=== PATIENT | male | born 1965 | race Caucasian/White ===

== ENCOUNTER 2018-01-22 15:21 | Emergency (ER) | payer SELFPAY ==
--- NOTE | 2018-01-22 16:29 | RAD REPORT ---
EXAM DESCRIPTION: RAD - Wrist Right 3 View - 01/22/2018 4:21 pm CLINICAL HISTORY: PAIN Pain COMPARISON: No comparisons FINDINGS: No fracture or dislocation seen. No foreign body or other soft tissue abnormality. IMPRESSION: Negative examination.
[2018-01-22 18:58] LABS: Absolute Lymphocytes (CBC) 1.7 K/uL (0.7-4.9); Absolute Monocytes 0.6 K/uL (0.1-1.3); Absolute Neutrophil 5.4 K/uL (1.8-8.0); Basophils % 0.5 % (0-1.3); Eosinophils % 2.7 % (0-4.4); Hematocrit 45.4 % (39.6-49.0); Lymphocytes % 21.4 % (15.3-44.8); MCH 27.8 pg (27.0-35.0); MCV 83.5 fL (80-100); MPV 8.7 fL (7.6-11.3); Monocytes % 7.1 % (3.3-12.3); RBC Red Blood Cell Count 5.44 M/uL (4.33-5.43)
[2018-01-22] MEDS ORDERED: CLINDAMYCIN 600MG/D5W 600 MG/50 ML BAG IV ONE (19:02)
[2018-01-22 19:39] LABS: BUN Blood Urea Nitrogen 13 mg/dL (7-18); Bicarbonate 27 mmol/L (21-32); Glucose Level 151 mg/dL (74-106); Potassium 3.8 mmol/L (3.5-5.1); Sodium Level 138 mmol/L (136-145)
[2018-01-22] MEDS ORDERED: LIDOCAINE 1% MPF 30 ML VIAL ONE (20:02)
--- NOTE | 2018-01-22 21:03 | EDPHYS ---
Physician Documentation [facility] Name: Matt Farrell Age: 53 yrs Sex: Male : 1965 Arrival Date: 01/22/2018 Time: 15:22 Bed 9 Private MD: ED Physician Louis Aj HPI: 01/22 21:07 This 53 yrs old Male presents to ER via Ambulatory with complaints of Boil, snw Wrist Pain. 21:07 Onset: The symptoms/episode began/occurred gradually. Associated signs and symptoms: snw Pertinent positives: pain with sitting. Modifying factors: The patient symptoms are alleviated by nothing, the patient symptoms are aggravated by touching area. The patient has experienced similar episodes in the past. The patient has not recently seen a physician. pt out of medications x 3 months for all his chronic illnesses. Historical: - Allergies: 15:51 No Known Allergies; ph - PMHx: 15:51 Arthritis; Bronchitis; Gout; heart disease; Hypertension; PTSD; Diabetes - NIDDM; ph - PSHx: 15:51 Hip Replacement Right; Heart stents; ph - Immunization history:: Adult Immunizations. - Social history:: Smoking status: unknown. - Ebola Screening: : No symptoms or risks identified at this time. ROS: 21:06 Constitutional: Negative for fever, chills, and weight loss, Eyes: Negative for injury, snw pain, redness, and discharge, ENT: Negative for injury, pain, and discharge, Neck: Negative for injury, pain, and swelling, Cardiovascular: Negative for chest pain, palpitations, and edema, Respiratory: Negative for shortness of breath, cough, wheezing, and pleuritic chest pain, Abdomen/GI: Negative for abdominal pain, nausea, vomiting, diarrhea, and constipation, Back: Negative for injury and pain, : Negative for injury, bleeding, discharge, and swelling, Skin: Negative for injury, rash, and discoloration, Neuro: Negative for headache, weakness, numbness, tingling, and seizure, Psych: Negative for depression, anxiety, suicide ideation, homicidal ideation, and hallucinations. 21:06 MS/extremity: Positive for pain, swelling, tenderness, of the right gluteal fold. Exam: 19:29 Constitutional: This is a well developed, well nourished patient who is awake, alert, snw and in no acute distress. Head/Face: Normocephalic, atraumatic. Eyes: Pupils equal round and reactive to light, extra-ocular motions intact. Lids and lashes normal. Conjunctiva and sclera are non-icteric and not injected. Cornea within normal limits. Periorbital areas with no swelling, redness, or edema. ENT: Nares patent. No nasal discharge, no septal abnormalities noted. Tympanic membranes are normal and external auditory canals are clear. Oropharynx with no redness, swelling, or masses, exudates, or evidence of obstruction, uvula midline. Mucous membranes moist. Neck: Trachea midline, no thyromegaly or masses palpated, and no cervical lymphadenopathy. Supple, full range of motion without nuchal rigidity, or vertebral point tenderness. No Meningismus. Chest/axilla: Normal chest wall appearance and motion. Nontender with no deformity. No lesions are appreciated. Cardiovascular: Regular rate and rhythm with a normal S1 and S2. No gallops, murmurs, or rubs. Normal PMI, no JVD. No pulse deficits. 19:29 Abdomen/GI: Soft, non-tender, with normal bowel sounds. No distension or tympany. No guarding or rebound. No evidence of tenderness throughout. Back: No spinal tenderness. No costovertebral tenderness. Full range of motion. MS/ Extremity: Pulses equal, no cyanosis. Neurovascular intact. Full, normal range of motion. Neuro: Awake and alert, GCS 15, oriented to person, place, time, and situation. Cranial nerves II-XII grossly intact. Motor strength 5/5 in all extremities. Sensory grossly intact. Cerebellar exam normal. Normal gait. Psych: Awake, alert, with orientation to person, place and time. Behavior, mood, and affect are within normal limits. 19:29 Respiratory: the patient does not display signs of respiratory distress, Respirations: no acute changes, Breath sounds: wheezing: expiratory is heard diffusely. 19:29 Skin: Appearance: Color: normal in color, lesion(s), noted, and can be described as erythematous, tender, indurated abscess at the left posterior thigh. Vital Signs: 15:51 BP 165 / 101; Pulse 91; Resp 18; Temp 98.1(O); Pulse Ox 95% on R/A; Weight 117.93 kg; ph Height 6 ft. 1 in. (185.42 cm); 16:34 BP 160 / 103; Pulse 83; Resp 18; Temp 97.4; Pulse Ox 95% on R/A; ph 18:51 BP 171 / 79; Pulse 64; Resp 18; Pulse Ox 96% on R/A; tl3 15:51 Body Mass Index 34.30 (117.93 kg, 185.42 cm) ph Procedures: 21:04 I \T\ D: Incision and drainage was performed for an abscess of the right posterior thigh snw Prepped with Betadine, Anesthetized with 4 ml's 1% Lidocaine. Incised with #10 blade. Drained large amount purulent fluid. Abscess cavity explored. Packed with sterile gauze, Dressing: sterile 4x4 gauze, the patient tolerated the procedure well. MDM: 17:23 Patient medically screened. snw 21:06 Data reviewed: vital signs, nurses notes. Data interpreted: Pulse oximetry: on room air snw is 96 %. Interpretation: acceptable. Counseling: I had a detailed discussion with the patient and/or guardian regarding: the historical points, exam findings, and any diagnostic results supporting the discharge/admit diagnosis, the presence of at least one elevated blood pressure reading (>120/80) during this emergency department visit, lab results, the need for outpatient follow up, to return to the emergency department if symptoms worsen or persist or if there are any questions or concerns that arise at home. Special discussion: I have referred the patient to see his PCP for further evaluation of high blood pressure. I discussed in detail with the patient the higher chance of wound infection based on his presenting history. Based on the history and exam findings, there is no indication for further emergent testing or inpatient evaluation. I discussed with the patient/guardian the need to see the primary care provider for further evaluation of the symptoms. 01/22 18:12 Order name: Basic Metabolic Panel; Complete Time: 19:45 snw 01/22 18:12 Order name: Blood Culture Adult (2) snw 01/22 18:12 Order name: CBC with Diff; Complete Time: 19:19 snw 01/22 18:12 Order name: Lactate; Complete Time: 19:45 snw 01/22 18:12 Order name: Procalcitonin; Complete Time: 19:45 snw 01/22 15:54 Order name: XRAY Wrist RIGHT 3 view; Complete Time: 17:23 ph 01/22 18:12 Order name: Accucheck; Complete Time: 18:51 snw 01/22 18:12 Order name: Cardiac monitoring; Complete Time: 18:51 snw 01/22 18:12 Order name: EKG - Nurse/Tech; Complete Time: 21:34 snw 01/22 18:12 Order name: IV Saline Lock - Large Bore; Complete Time: 18:50 snw 01/22 18:12 Order name: Labs collected and sent; Complete Time: 18:50 snw 01/22 18:12 Order name: O2 Per Protocol; Complete Time: 18:51 snw 01/22 18:12 Order name: O2 Sat Monitoring; Complete Time: 18:51 snw 01/22 19:46 Order name: I\T\D Setup; Complete Time: 19:51 snw 01/22 21:05 Order name: Dressing - Wound: Spandage; Complete Time: 21:09 snw 01/22 21:05 Order name: Rick wrap-joint; Complete Time: 21:33 snw Administered Medications: 18:59 Drug: Clindamycin 600 mg Route: IVPB; Infused Over: 30 mins; Site: right forearm; tl3 Delivery: Primary tubing; 19:30 Follow up: IV Status: Completed infusion; IV Intake: 50ml tl3 19:56 Drug: Lidocaine (1 %) 1 vials Volume: 20 ml; Route: Infiltration; tl3 21:33 Follow up: Response: Marked relief of symptoms tl3 21:33 Drug: Demerol 50 mg Route: IM; Site: left gluteus; tl3 21:33 Follow up: Response: Medication administered at discharge. tl3 Point of Care Testing: Blood Glucose: 18:51 Blood Glucose: 134 mg/dL; tl3 Ranges: Critical Glucose Levels:Adult <50 mg/dl or >400 mg/dl <40 mg/dl or >180 mg/dl Disposition: 01/22/18 21:02 Discharged to Home. Impression: Cutaneous abscess of right lower limb, Patient's intentional underdosing of medication regimen due to financial hardship. - Condition is Stable. - Discharge Instructions: Skin Abscess, Incision and Drainage, How to Take a Sitz Bath. - Prescriptions for Clindamycin HCl 300 mg Oral Capsule - take 1 capsule by ORAL route every 6 hours for 10 days; 40 capsule. Glucophage 500 mg Oral Tablet - take 1 tablet by ORAL route every 12 hours; 20 tablet. Tylenol- Codeine #3 300-30 mg Oral Tablet - take 2 tablets by ORAL route every 6 hours As needed; 14 tablet. - Medication Reconciliation Form, Thank You Letter, Antibiotic Education, Prescription Opioid Use form. - Follow up: Private Physician; When: 2 - 3 days; Reason: Recheck today's complaints, Continuance of care, Re-evaluation by your physician. Follow up: Emergency Department; When: As needed; Reason: Worsening of condition. Addendum: 01/29/2018 11:49 Co-signature as Attending Physician, Louis Aj MD. g s Signatures: Dispatcher [employer] EDMS Sharon Collado, ANGELICA-C PROJECTION ENGINEER-Csnw So Lofton, RN RN Louis Aj MD MD Chioma Nam RN RN tl3 Corrections: (The following items were deleted from the chart) 01/22 21:37 21:02 01/22/2018 21:02 Discharged to Home. Impression: Cutaneous abscess of right lower tl3 limb; Patient's intentional underdosing of medication regimen due to financial hardship. Condition is Stable. Forms are Medication Reconciliation Form, Thank You Letter, Antibiotic Education, Prescription Opioid Use. Follow up: Private Physician; When: 2 - 3 days; Reason: Recheck today's complaints, Continuance of care, Re-evaluation by your physician. Follow up: Emergency Department; When: As needed; Reason: Worsening of condition. snw
--- NOTE | 2018-01-22 21:03 | ER ---
Nurse's Notes [facility] Name: Matt Farrell Age: 53 yrs Sex: Male : 1965 Arrival Date: 01/22/2018 Time: 15:22 Bed 9 Private MD: Diagnosis: Cutaneous abscess of right lower limb;Patient's intentional underdosing of medication regimen due to financial hardship Presentation: 01/22 15:48 Presenting complaint: Patient states: " I have a boil on the back of my R leg and my R ph wrist has been hurting me because I fell a while back and I need to have it xrayed." Pt denies fever, N/V/D, or drainage from site. Transition of care: patient was not received from another setting of care. Onset of symptoms was January 22, 2018. Risk Assessment: Do you want to hurt yourself or someone else? Patient reports no desire to harm self or others. Care prior to arrival: None. 15:48 Method Of Arrival: Ambulatory ph 15:48 Acuity: CHELSIE 4 ph 15:52 Note Pt reports that he has been out of diabetes meds and HTN meds "for a few weeks". ph 21:36 Initial Sepsis Screen: Does the patient meet any 2 criteria? No. Patient's initial tl3 sepsis screen is negative. Does the patient have a suspected source of infection? Yes: Skin breakdown/wound. Triage Assessment: 21:36 General: Appears uncomfortable, Behavior is calm, cooperative, appropriate for age. tl3 Derm: Abscess located on right leg. Historical: - Allergies: 15:51 No Known Allergies; ph - PMHx: 15:51 Arthritis; Bronchitis; Gout; heart disease; Hypertension; PTSD; Diabetes - NIDDM; ph - PSHx: 15:51 Hip Replacement Right; Heart stents; ph - Immunization history:: Adult Immunizations. - Social history:: Smoking status: unknown. - Ebola Screening: : No symptoms or risks identified at this time. Screenin:51 Abuse screen: Denies threats or abuse. Nutritional screening: No deficits noted. tl3 Tuberculosis screening: No symptoms or risk factors identified. Fall Risk None identified. Assessment: 21:34 Pain: Complains of pain in right leg. tl3 Vital Signs: 15:51 BP 165 / 101; Pulse 91; Resp 18; Temp 98.1(O); Pulse Ox 95% on R/A; Weight 117.93 kg; ph Height 6 ft. 1 in. (185.42 cm); 16:34 BP 160 / 103; Pulse 83; Resp 18; Temp 97.4; Pulse Ox 95% on R/A; ph 18:51 BP 171 / 79; Pulse 64; Resp 18; Pulse Ox 96% on R/A; tl3 15:51 Body Mass Index 34.30 (117.93 kg, 185.42 cm) ph ED Course: 15:22 Patient arrived in ED. as 15:50 Triage completed. ph 15:52 Arm band placed on. ph 16:14 XRAY Wrist RIGHT 3 view In Process Unspecified. EDMS 17:22 Sharon Collado FNP-C [facility]. snw 17:22 Louis Aj MD is Attending Physician. snw 18:51 Patient has correct armband on for positive identification. tl3 18:51 No provider procedures requiring assistance completed. Inserted saline lock: 22 gauge tl3 in right forearm, using aseptic technique. Blood collected. 21:34 IV discontinued, intact, bleeding controlled, No redness/swelling at site. Pressure tl3 dressing applied. Administered Medications: 18:59 Drug: Clindamycin 600 mg Route: IVPB; Infused Over: 30 mins; Site: right forearm; tl3 Delivery: Primary tubing; 19:30 Follow up: IV Status: Completed infusion; IV Intake: 50ml tl3 19:56 Drug: Lidocaine (1 %) 1 vials Volume: 20 ml; Route: Infiltration; tl3 21:33 Follow up: Response: Marked relief of symptoms tl3 21:33 Drug: Demerol 50 mg Route: IM; Site: left gluteus; tl3 21:33 Follow up: Response: Medication administered at discharge. tl3 Point of Care Testing: Blood Glucose: 18:51 Blood Glucose: 134 mg/dL; tl3 Ranges: Intake: 19:30 IV: 50ml; Total: 50ml. tl3 Outcome: 21:02 Discharge ordered by . snw 21:34 Discharged to home ambulatory. tl3 21:34 Condition: stable 21:34 Discharge instructions given to patient, family, Instructed on discharge instructions, follow up and referral plans. medication usage, Demonstrated understanding of instructions, follow-up care, medications, Prescriptions given X 2. 21:37 Patient left the ED. tl3 Signatures: Dispatcher [employer] EDMS Sharon Collado, JAGC FR[employer] TECHNICIAN-Ektaw Emelyn Cruz as So Lofton, JOVANY RN Chioma Nam RN RN tl3 Corrections: (The following items were deleted from the chart) 15:52 15:51 BP 165 / 101; Pulse 91bpm; Resp 18bpm; Pulse Ox 95% RA; Temp 98.1F Oral; 117.93 ph kg; Height 3 ft. 61 in.; BMI: 19.4; ph
[2018-01-22] MEDS ORDERED: MEPERIDINE HCL 50 MG/ML AMP ONE (21:18)
== END 2018-01-22 21:37 | disposition home or self-care (01) ==
LOC: ER 15:21
PROC: 0J9L0ZZ Drainage of Right Upper Leg Subcutaneous Tissue and Fascia, Open Approach (ICD-10-PCS; principal; 2018-01-22)
DX: L02.415 Cutaneous abscess of right lower limb (principal); I10 Essential (primary) hypertension; E11.9 Type 2 diabetes mellitus without complications; M10.9 Gout, unspecified; I25.10 Atherosclerotic heart disease of native coronary artery without angina pectoris; Z96.641 Presence of right artificial hip joint; Z95.5 Presence of coronary angioplasty implant and graft
CPT/HCPCS: 36415; 80048; 82962; 83605; 84145; 85025; 87040; 96365; 96372; 99284; J2175

== ENCOUNTER 2018-01-24 14:37 | Emergency (ER) | payer SELFPAY ==
[2018-01-24] MEDS ORDERED: LIDOCAINE 1% MPF 30 ML VIAL ONE (14:59)
--- NOTE | 2018-01-24 15:32 | ER ---
Nurse's Notes [facility] Name: Matt Farrell Age: 53 yrs Sex: Male : 1965 Arrival Date: 01/24/2018 Time: 14:38 Bed 25 Private MD: None, None Diagnosis: Cutaneous abscess of right lower limb Presentation: 01/24 14:42 Presenting complaint: Patient states: needs wound repacked and checked to the right sv posterior leg, reports dressing fell off the day after coming here on 01/22/18. Also reports "I need another xray for my wrist because I think they missed something.". Transition of care: patient was not received from another setting of care. Onset of symptoms was January 22, 2018. Care prior to arrival: None. 14:42 Method Of Arrival: Ambulatory sv 14:42 Acuity: CHELSIE 4 sv 15:56 Risk Assessment: Do you want to hurt yourself or someone else? Patient reports no tl3 desire to harm self or others. Initial Sepsis Screen: Does the patient meet any 2 criteria? No. Patient's initial sepsis screen is negative. Does the patient have a suspected source of infection? Yes: Skin breakdown/wound. Triage Assessment: 14:42 General: Appears in no apparent distress. comfortable, Behavior is calm, cooperative, sv appropriate for age. Neuro: Level of Consciousness is awake, alert, obeys commands, Oriented to person, place, time, situation, Moves all extremities. Full function Gait is steady. Respiratory: Respiratory effort is even, unlabored, Respiratory pattern is regular, symmetrical. Historical: - Allergies: 14:49 No Known Allergies; sv - PMHx: 14:49 Arthritis; Bronchitis; Diabetes - NIDDM; Gout; heart disease; Hypertension; PTSD; sv - PSHx: 14:49 Hip Replacement Right; Heart stents; sv - Immunization history:: Adult Immunizations up to date. - Social history:: Smoking status: unknown. - Ebola Screening: : No symptoms or risks identified at this time. Screenin:03 Abuse screen: Denies threats or abuse. Nutritional screening: No deficits noted. tl3 Tuberculosis screening: No symptoms or risk factors identified. Fall Risk None identified. Assessment: 15:03 General: Appears uncomfortable, obese, Behavior is calm, cooperative, appropriate for tl3 age. Pain: Complains of pain in right leg. Neuro: Level of Consciousness is awake, alert, obeys commands. Cardiovascular: Patient's skin is warm and dry. Respiratory: Airway is patent Respiratory effort is even, unlabored, Respiratory pattern is regular, symmetrical. GI: No signs and/or symptoms were reported involving the gastrointestinal system. : No signs and/or symptoms were reported regarding the genitourinary system. EENT: No signs and/or symptoms were reported regarding the EENT system. Derm: Abscess located on right leg is quarter sized, has no drainage, is red. Musculoskeletal: No deficits noted. Vital Signs: 14:42 BP 171 / 108; Pulse 81; Resp 18; Temp 97.1; Pulse Ox 96% ; Weight 117.93 kg; Height 6 sv ft. 1 in. (185.42 cm); 14:42 Body Mass Index 34.30 (117.93 kg, 185.42 cm) sv ED Course: 14:38 Patient arrived in ED. mr 14:38 None, None is Private Physician. mr 14:42 Thuy Serrano FNP-C is [facility]. kb 14:42 Sherif Glynn MD is Attending Physician. kb 14:42 Arm band placed on Patient placed in an exam room, on a stretcher, on pulse oximetry. sv 14:48 Triage completed. sv 15:01 Chioma Nam, JOVANY is Primary Nurse. tl3 15:03 Patient has correct armband on for positive identification. tl3 15:03 No provider procedures requiring assistance completed. Patient did not have IV access tl3 during this emergency room visit. Administered Medications: 15:30 Drug: Lidocaine (1 %) 1 vials {Note: Per Daisy.} Volume: 5 ml; Route: Infiltration; tl3 Site: affected area; 15:40 Drug: Demerol 50 mg Route: IM; Site: right gluteus; tl3 15:54 Follow up: Response: Medication administered at discharge. tl3 Outcome: 15:31 Discharge ordered by . kb 15:55 Discharged to home ambulatory. tl3 15:55 Condition: stable 15:55 Discharge instructions given to patient, Instructed on discharge instructions, follow up and referral plans. stressed continuing abx as ordered, keeping area clean and dry, good handwashing 15:57 Patient left the ED. tl3 Signatures: Thuy Serrano FNP-C FNP-Ckb Verde, Stephanie, RN RN sv Blanco, Latoya mr Cyril, Chioma, RN RN tl3
--- NOTE | 2018-01-24 15:32 | EDPHYS ---
Physician Documentation [facility] Name: Matt Farrell Age: 53 yrs Sex: Male : 1965 Arrival Date: 01/24/2018 Time: 14:38 Bed 25 Private MD: None, None ED Physician Sherif Glynn HPI: 01/24 14:49 This 53 yrs old Male presents to ER via Ambulatory with complaints of Abscess kb Recheck. 14:49 Patient presents to ED for recheck of: abscess. The affected area is on the right kb hamstring. Previous treatment: The patient was initially treated 2 day(s) ago, the care was rendered at [facility], Treatment type: The patient's original treatment included an I\T\D. Progress: The patient reports no change in. The patient has not experienced similar symptoms in the past. The patient has not recently seen a physician. Pt reports he had an abscess drained on 01/22/18 to posterior right thigh. Reports the packing came out that same night and it closed back up. His girlfriend opened and drained it this morning, but he came to have it repacked. . Historical: - Allergies: 14:49 No Known Allergies; sv - PMHx: 14:49 Arthritis; Bronchitis; Diabetes - NIDDM; Gout; heart disease; Hypertension; PTSD; sv - PSHx: 14:49 Hip Replacement Right; Heart stents; sv - Immunization history:: Adult Immunizations up to date. - Social history:: Smoking status: unknown. - Ebola Screening: : No symptoms or risks identified at this time. ROS: 14:49 Constitutional: Negative for fever, chills, and weight loss, Cardiovascular: Negative kb for chest pain, palpitations, and edema, Respiratory: Negative for shortness of breath, cough, wheezing, and pleuritic chest pain, Abdomen/GI: Negative for abdominal pain, nausea, vomiting, diarrhea, and constipation, MS/Extremity: Negative for injury and deformity, Neuro: Negative for headache, weakness, numbness, tingling, and seizure. 14:49 Skin: Positive for abscess, erythema, swelling, of the right hamstring. Exam: 14:49 Constitutional: This is a well developed, well nourished patient who is awake, alert, kb and in no acute distress. Head/Face: Normocephalic, atraumatic. Neck: Trachea midline, no thyromegaly or masses palpated, and no cervical lymphadenopathy. Supple, full range of motion without nuchal rigidity, or vertebral point tenderness. No Meningismus. Chest/axilla: Normal chest wall appearance and motion. Nontender with no deformity. No lesions are appreciated. Cardiovascular: Regular rate and rhythm with a normal S1 and S2. No gallops, murmurs, or rubs. Normal PMI, no JVD. No pulse deficits. Respiratory: Lungs have equal breath sounds bilaterally, clear to auscultation and percussion. No rales, rhonchi or wheezes noted. No increased work of breathing, no retractions or nasal flaring. Abdomen/GI: Soft, non-tender, with normal bowel sounds. No distension or tympany. No guarding or rebound. No evidence of tenderness throughout. MS/ Extremity: Pulses equal, no cyanosis. Neurovascular intact. Full, normal range of motion. Neuro: Awake and alert, GCS 15, oriented to person, place, time, and situation. Cranial nerves II-XII grossly intact. Motor strength 5/5 in all extremities. Sensory grossly intact. Cerebellar exam normal. Normal gait. 14:49 Skin: abscess, that is moderate sized, of the right hamstring, with fluctuance, with induration. Vital Signs: 14:42 BP 171 / 108; Pulse 81; Resp 18; Temp 97.1; Pulse Ox 96% ; Weight 117.93 kg; Height 6 sv ft. 1 in. (185.42 cm); 14:42 Body Mass Index 34.30 (117.93 kg, 185.42 cm) sv Procedures: 15:29 I \T\ D: Incision and drainage was performed for an abscess of the right right hamstring kb Prepped with Betadine, Anesthetized with 2 ml's 1% Lidocaine. Incised with #11 blade. Drained moderate amount purulent fluid. Packed with iodoform gauze, Dressing: sterile 4x4 gauze, the patient tolerated the procedure well. MDM: 14:42 Patient medically screened. kb 14:49 Data reviewed: vital signs, nurses notes. Data interpreted: Pulse oximetry: on room air kb is 96 %. Interpretation: normal. Counseling: I had a detailed discussion with the patient and/or guardian regarding: the historical points, exam findings, and any diagnostic results supporting the discharge/admit diagnosis, the need for outpatient follow up, a family practitioner, a general surgeon, to return to the emergency department if symptoms worsen or persist or if there are any questions or concerns that arise at home. 01/24 14:55 Order name: I\T\D Setup; Complete Time: 15:06 kb Administered Medications: 15:30 Drug: Lidocaine (1 %) 1 vials {Note: Per Daisy.} Volume: 5 ml; Route: Infiltration; tl3 Site: affected area; 15:40 Drug: Demerol 50 mg Route: IM; Site: right gluteus; tl3 15:54 Follow up: Response: Medication administered at discharge. tl3 Disposition: 01/25 06:52 Co-signature as Attending Physician, Sherif Glynn MD I agree with the assessment and alla plan of care. Disposition: 01/24/18 15:31 Discharged to Home. Impression: Cutaneous abscess of right lower limb. - Condition is Stable. - Discharge Instructions: Skin Abscess, [id number], Incision and Drainage, Care After. - Medication Reconciliation Form, Thank You Letter, Antibiotic Education, Prescription Opioid Use form. - Follow up: Private Physician; When: 2 - 3 days; Reason: Recheck today's complaints, Continuance of care, Re-evaluation by your physician. Follow up: Emergency Department; When: As needed; Reason: Worsening of condition. - Notes: Continue previously prescribed antibiotics Signatures: Thuy Serrano, CIGARETTE AND FILTER CHIEF INSPECTOR-C CIGARETTE AND FILTER CHIEF INSPECTOR-Catalina Metcalf RN RN sv Anderson, Corey, MD MD cha Lowrey, Tammy, RN RN tl3 Corrections: (The following items were deleted from the chart) 01/24 14:54 14:49 Counseling: I had a detailed discussion with the patient and/or guardian semaj regarding: the historical points, exam findings, and any diagnostic results supporting the discharge/admit diagnosis, the need for outpatient follow up, a family practitioner, to return to the emergency department if symptoms worsen or persist or if there are any questions or concerns that arise at home, semaj 15:57 15:31 01/24/2018 15:31 Discharged to Home. Impression: Cutaneous abscess of right lower tl3 limb. Condition is Stable. Forms are Medication Reconciliation Form, Thank You Letter, Antibiotic Education, Prescription Opioid Use. Follow up: Private Physician; When: 2 - 3 days; Reason: Recheck today's complaints, Continuance of care, Re-evaluation by your physician. Follow up: Emergency Department; When: As needed; Reason: Worsening of condition. kb
[2018-01-24] MEDS ORDERED: MEPERIDINE HCL 50 MG/ML AMP ONE (15:51)
== END 2018-01-24 15:57 | disposition home or self-care (01) ==
LOC: ER 14:37
PROC: 0K9Q0ZZ Drainage of Right Upper Leg Muscle, Open Approach (ICD-10-PCS; principal; 2018-01-24)
DX: L02.415 Cutaneous abscess of right lower limb (principal)
CPT/HCPCS: 96372; 99283; J2175

== ENCOUNTER 2018-04-02 08:18 | Emergency (ER) | payer SELFPAY ==
--- OUTSIDE RECORDS SUMMARY | 2018-04-02 08:20 | XMS REPORT ---
:1965 [facility] Address [address] [place] [address] Dr. Oates [address] [place] [id number] Care Team Providers Name Role Phone Unavailable Unavailable Unavailable Problems This patient has no known problems. Allergies, Adverse Reactions, Alerts This patient has no known allergies or adverse reactions. Medications This patient has no known medications.
--- NOTE | 2018-04-02 09:13 | EDPHYS ---
Physician Documentation [facility] Name: Matt Farrell Age: 53 yrs Sex: Male : 1965 Arrival Date: 04/02/2018 Time: 08:23 Bed 26 Private MD: None, None ED Physician Milo Arellano HPI: 04/02 14:58 This 53 yrs old Male presents to ER via Ambulatory with complaints of snw Toothache. 14:56 The patient presents with broken tooth/teeth. The patient presents with broken snw tooth/teeth. The problem is located in the mouth. Onset: The symptoms/episode began/occurred suddenly, 2 day(s) ago, and became persistent. Duration: The symptoms are continuous. Associated signs and symptoms: Pertinent positives: pain. Severity of symptoms: At their worst the symptoms were moderate. It is unknown whether or not the patient has had similar symptoms in the past. The patient has not recently seen a physician. Historical: - Allergies: 08:38 No Known Allergies; aa5 - PMHx: 08:38 Arthritis; Bronchitis; Diabetes - NIDDM; Gout; heart disease; Hypertension; PTSD; aa5 - PSHx: 08:38 Hip Replacement Right; Heart stents; aa5 - Immunization history:: Adult Immunizations unknown. - Social history:: Smoking status: Patient uses tobacco products, smokes one pack cigarettes per day. - Ebola Screening: : No symptoms or risks identified at this time. ROS: 14:54 Constitutional: Negative for fever, chills, and weight loss, Eyes: Negative for injury, snw pain, redness, and discharge, Neck: Negative for injury, pain, and swelling, Cardiovascular: Negative for chest pain, palpitations, and edema, Respiratory: Negative for shortness of breath, cough, wheezing, and pleuritic chest pain, Abdomen/GI: Negative for abdominal pain, nausea, vomiting, diarrhea, and constipation, Back: Negative for injury and pain, : Negative for injury, bleeding, discharge, and swelling, MS/Extremity: Negative for injury and deformity, Skin: Negative for injury, rash, and discoloration, Neuro: Negative for headache, weakness, numbness, tingling, and seizure. 14:54 ENT: Positive for dental pain, high blood pressure as he has not gotten his meds filled in months 2nd to finances. Exam: 14:53 Constitutional: This is a well developed, well nourished patient who is awake, alert, snw and in no acute distress. Head/Face: Normocephalic, atraumatic. Eyes: Pupils equal round and reactive to light, extra-ocular motions intact. Lids and lashes normal. Conjunctiva and sclera are non-icteric and not injected. Cornea within normal limits. Periorbital areas with no swelling, redness, or edema. Neck: Trachea midline, no thyromegaly or masses palpated, and no cervical lymphadenopathy. Supple, full range of motion without nuchal rigidity, or vertebral point tenderness. No Meningismus. Chest/axilla: Normal chest wall appearance and motion. Nontender with no deformity. No lesions are appreciated. Cardiovascular: Regular rate and rhythm with a normal S1 and S2. No gallops, murmurs, or rubs. Normal PMI, no JVD. No pulse deficits. Respiratory: Lungs have equal breath sounds bilaterally, clear to auscultation and percussion. No rales, rhonchi or wheezes noted. No increased work of breathing, no retractions or nasal flaring. Abdomen/GI: Soft, non-tender, with normal bowel sounds. No distension or tympany. No guarding or rebound. No evidence of tenderness throughout. Back: No spinal tenderness. No costovertebral tenderness. Full range of motion. Skin: Warm, dry with normal turgor. Normal color with no rashes, no lesions, and no evidence of cellulitis. MS/ Extremity: Pulses equal, no cyanosis. Neurovascular intact. Full, normal range of motion. Neuro: Awake and alert, GCS 15, oriented to person, place, time, and situation. Cranial nerves II-XII grossly intact. Motor strength 5/5 in all extremities. Sensory grossly intact. Cerebellar exam normal. Normal gait. 14:53 ENT: External ear(s): are unremarkable, TM's: are normal, Nose: is normal, Mouth: is normal, Dental exam: dental caries, fractured teeth are noted, specifically the lower left second molar (#18). Vital Signs: 08:39 BP 182 / 94; Pulse 90; Resp 20 S; Temp 98.1(TE); Pulse Ox 96% on R/A; Weight 117.93 kg aa5 (R); Height 6 ft. 1 in. (185.42 cm) (R); Pain 10/10; 09:37 BP 189 / 109; Pulse 74; Pulse Ox 95% on R/A; Pain 10/10; ss 08:39 Body Mass Index 34.30 (117.93 kg, 185.42 cm) aa5 MDM: 09:09 Patient medically screened. snw 14:55 Data reviewed: vital signs, nurses notes. Data interpreted: Pulse oximetry: on room air snw is 95 %. Interpretation: acceptable. Counseling: I had a detailed discussion with the patient and/or guardian regarding: the historical points, exam findings, and any diagnostic results supporting the discharge/admit diagnosis, the presence of at least one elevated blood pressure reading (>120/80) during this emergency department visit, the need for outpatient follow up, to return to the emergency department if symptoms worsen or persist or if there are any questions or concerns that arise at home. Special discussion: I have referred the patient to see his PCP for further evaluation of high blood pressure. Based on the history and exam findings, there is no indication for further emergent testing or inpatient evaluation. I discussed with the patient/guardian the need to see a dentist for further evaluation of the symptoms. I discussed with the patient/guardian the need to see the primary care provider for further evaluation of the symptoms. Administered Medications: 09:53 Drug: Lisinopril 10 mg Route: PO; 09:53 Follow up: Response: No adverse reaction; Medication administered at discharge. 09:53 Drug: [place] 5 mg-325 mg 1 tabs Route: PO; 09:53 Follow up: Response: No adverse reaction; Medication administered at discharge. 09:54 Not Given (Other Intervention Used): Amoxicillin 875 mg PO once 09:54 Drug: Amoxicillin 500 mg Route: PO; 09:54 Follow up: Response: No adverse reaction; Medication administered at discharge. Disposition: 04/02/18 09:12 Discharged to Home. Impression: Dental caries, Essential (primary) hypertension, Patient's noncompliance with medical treatment and regimen - second to financial reasons. - Condition is Stable. - Discharge Instructions: Dental Caries, Adult, Dental Pain, Hypertension, DASH Eating Plan. - Prescriptions for chlorhexidine gluconate 0.12 % Mucous Membrane mouthwash - place 15 milliliter by MUCOUS MEMBRANE route 2 times per day after brushing teeth, swish in mouth for 30 seconds then spit out; 480 milliliter. Amoxicillin 500 mg Oral Capsule - take 1 capsule by ORAL route every 8 hours for 10 days; 30 tablet. Lisinopril 10 mg Oral Tablet - take 1 tablet by ORAL route once daily; 20 tablet. - Medication Reconciliation Form, Thank You Letter, Antibiotic Education, Prescription Opioid Use form. - Follow up: Private Physician; When: 1 - 2 days; Reason: Recheck today's complaints, Continuance of care, Re-evaluation by your physician. Follow up: Emergency Department; When: As needed; Reason: Worsening of condition. Addendum: 04/04/2018 07:35 Co-signature as Attending Physician, Milo Arellano MD. r n Signatures: Sharon Collado, CELL MAKER-C CELL MAKER-Csnw Milo Arellano MD MD rn Calderon, Audri, RN RN aa5 Jaqueline Nunez RN RN ss Corrections: (The following items were deleted from the chart) 04/02 09:55 09:12 04/02/2018 09:12 Discharged to Home. Impression: Dental caries; Essential ss (primary) hypertension; Patient's noncompliance with medical treatment and regimen - second to financial reasons. Condition is Stable. Forms are Medication Reconciliation Form, Thank You Letter, Antibiotic Education, Prescription Opioid Use. Follow up: Private Physician; When: 1 - 2 days; Reason: Recheck today's complaints, Continuance of care, Re-evaluation by your physician. Follow up: Emergency Department; When: As needed; Reason: Worsening of condition. snw
--- NOTE | 2018-04-02 09:13 | ER ---
Nurse's Notes [facility] Name: Matt Farrell Age: 53 yrs Sex: Male : 1965 Arrival Date: 04/02/2018 Time: 08:23 Bed 26 Private MD: None, None Diagnosis: Dental caries;Essential (primary) hypertension;Patient's noncompliance with medical treatment and regimen-second to financial reasons Presentation: 04/02 08:36 Presenting complaint: Patient states: "I've had a hole on a tooth on the left bottom aa5 side for years and it's been a while that it's been bothering me but it started hurting worse last night". Transition of care: patient was not received from another setting of care. Onset of symptoms was 2016. Risk Assessment: Do you want to hurt yourself or someone else? Patient reports no desire to harm self or others. Initial Sepsis Screen: Does the patient meet any 2 criteria? No. Patient's initial sepsis screen is negative. Does the patient have a suspected source of infection? No. Patient's initial sepsis screen is negative. Care prior to arrival: None. 08:36 Method Of Arrival: Ambulatory aa5 08:36 Acuity: CHELSIE 4 aa5 Historical: - Allergies: 08:38 No Known Allergies; aa5 - PMHx: 08:38 Arthritis; Bronchitis; Diabetes - NIDDM; Gout; heart disease; Hypertension; PTSD; aa5 - PSHx: 08:38 Hip Replacement Right; Heart stents; aa5 - Immunization history:: Adult Immunizations unknown. - Social history:: Smoking status: Patient uses tobacco products, smokes one pack cigarettes per day. - Ebola Screening: : No symptoms or risks identified at this time. Screenin:50 Abuse screen: Denies threats or abuse. Nutritional screening: No deficits noted. aa5 Tuberculosis screening: No symptoms or risk factors identified. Fall Risk None identified. Assessment: 08:45 General: Appears uncomfortable, Behavior is calm, cooperative. Pain: Complains of pain aa5 in left lower teeth Pain currently is 10 out of 10 on a pain scale. Quality of pain is described as throbbing, Is continuous. Neuro: Level of Consciousness is awake, alert, obeys commands, Oriented to person, place, time, situation. Cardiovascular: Patient's skin is warm and dry. Respiratory: Airway is patent Respiratory effort is even, unlabored, Respiratory pattern is regular, symmetrical. GI: No signs and/or symptoms were reported involving the gastrointestinal system. : No signs and/or symptoms were reported regarding the genitourinary system. EENT: Reports teeth pain . Derm: Skin is pink, warm \\T\\ dry. Musculoskeletal: Range of motion: intact in all extremities. Vital Signs: 08:39 BP 182 / 94; Pulse 90; Resp 20 S; Temp 98.1(TE); Pulse Ox 96% on R/A; Weight 117.93 kg aa5 (R); Height 6 ft. 1 in. (185.42 cm) (R); Pain 10/10; 09:37 BP 189 / 109; Pulse 74; Pulse Ox 95% on R/A; Pain 10/10; ss 08:39 Body Mass Index 34.30 (117.93 kg, 185.42 cm) aa5 ED Course: 08:23 Patient arrived in ED. dl4 08:23 None, None is Private Physician. dl4 08:24 [facility]C [facility] snw 08:24 Milo Arellano MD is Attending Physician. snw 08:38 Triage completed. aa5 08:38 Arm band placed on. aa5 08:38 Patient has correct armband on for positive identification. aa5 08:59 Antionette Prado, RN is Primary Nurse. aa5 09:55 No provider procedures requiring assistance completed. Patient did not have IV access ss during this emergency room visit. Administered Medications: 09:53 Drug: Lisinopril 10 mg Route: PO; ss 09:53 Follow up: Response: No adverse reaction; Medication administered at discharge. ss 09:53 Drug: [place] 5 mg-325 mg 1 tabs Route: PO; ss 09:53 Follow up: Response: No adverse reaction; Medication administered at discharge. ss 09:54 Not Given (Other Intervention Used): Amoxicillin 875 mg PO once ss 09:54 Drug: Amoxicillin 500 mg Route: PO; ss 09:54 Follow up: Response: No adverse reaction; Medication administered at discharge. ss Outcome: 09:12 Discharge ordered by . snw 09:55 Discharged to home via wheelchair, with family. ss 09:55 Condition: good 09:55 Discharge instructions given to patient, significant other, Instructed on discharge instructions, follow up and referral plans. medication usage, Demonstrated understanding of instructions, follow-up care, medications, Prescriptions given X 3. 09:55 Patient left the ED. Signatures: Sharon Collado, GRAPHIC SPECIALIST-C GRAPHIC SPECIALIST-Csnw Antionette Prado, RN RN aa5 Jaqueline Nunez RN RN ss Dorian Sheikh dl4 Corrections: (The following items were deleted from the chart) 09:53 09:53 Amoxicillin 875 mg PO [facility]
[2018-04-02] MEDS ORDERED: HYDROCODONE/APAP 5/325 MG TAB ONE (09:50)
[2018-04-02] MEDS ORDERED: LISINOPRIL 10 MG TAB ONE (09:50)
[2018-04-02] MEDS ORDERED: AMOXICILLIN TRIHYDR 250 MG CAP ONE (09:53)
== END 2018-04-02 09:55 | disposition home or self-care (01) ==
LOC: ER 08:18
DX: K02.9 Dental caries, unspecified (principal); I10 Essential (primary) hypertension; Z91.14 Patient's other noncompliance with medication regimen; Z91.19 Patient's noncompliance with other medical treatment and regimen; S02.5XXA Fracture of tooth (traumatic), initial encounter for closed fracture; X58.XXXA Exposure to other specified factors, initial encounter; F17.210 Nicotine dependence, cigarettes, uncomplicated
CPT/HCPCS: 99283

== ENCOUNTER 2021-09-26 19:05 | Emergency (ER) | payer OTHER ==
[2021-09-26 19:57] LABS: Absolute Lymphocytes (CBC) 1.5 K/uL (0.7-4.9); Hematocrit 45.9 % (39.6-49.0); Lymphocytes % 16.4 % (15.3-44.8); MCV 88.5 fL (80-100); MPV 8.5 fL (7.6-11.3); RBC Red Blood Cell Count 5.19 M/uL (4.33-5.43)
[2021-09-26 20:01] LABS: Protime INR 0.9
[2021-09-26] MEDS ORDERED: METOPROLOL TARTRATE 5 MG/5 ML INJ IV ONE ×2 (20:07→20:31)
[2021-09-26] MEDS ORDERED: NITROGLYCERIN 0.4 MG/TAB SL ONE (20:07)
[2021-09-26] MEDS ORDERED: FAMOTIDINE 20 MG/2 ML VIAL IV ONE (20:07)
--- NOTE | 2021-09-26 20:08 | RAD REPORT ---
EXAM DESCRIPTION: RAD - Chest Single View - 09/26/2021 7:49 pm CLINICAL HISTORY: CHEST PAIN COMPARISON: Two view chest 09/26/2011 TECHNIQUE: AP portable chest image was obtained 09/26/2021 7:49 pm . FINDINGS: Lungs are clear. Interstitial pattern is accentuated by slightly shallow inspiration gwen ble technique. This could mask minimal interstitial edema or infiltrate. Heart and vasculature are normal. No measurable pleural effusion and no pneumothorax. No acute bony a bnormality seen. No acute aortic findings suspected. IMPRESSION: No focal lung parenchymal process seen. Baseline interstitial pattern could mask minimal edema or infiltrate.
[2021-09-26 20:12] LABS: ALT/SGPT 39 U/L (12-78); AST/SGOT 22 U/L (15-37); Albumin 3.8 g/dL (3.4-5.0); Alkaline Phosphatase 66 U/L (45-117); BUN Blood Urea Nitrogen 21 mg/dL (7-18); Bicarbonate 25 mmol/L (21-32); Bilirubin Total 0.3 mg/dL (0.2-1.0); Glomerular Filtration Rate 101 ml/min (=/>90); Glucose Level 366 mg/dL (74-106); Magnesium 2.2 mg/dL (1.8-2.4); NT PRO-BNP 235 pg/mL (<125); Protein, Total 7.4 g/dL (6.4-8.2); Sodium Level 136 mmol/L (136-145)
[2021-09-26 20:14] LABS: Bilirubin Direct < 0.1 mg/dL (0-0.2)
[2021-09-26 20:15] LABS: Troponin High Sensitivity 64.9 pg/mL (<58.9)
--- NOTE | 2021-09-26 21:07 | ER ---
Nurse's Notes [facility] Name: Matt Farrell Age: 56 yrs Sex: Male : 1965 Arrival Date: 09/26/2021 Time: 19:12 Bed 2 Private MD: Diagnosis: Myocardial infarction - NSTEMI Presentation: 09/26 19:13 Chief complaint: EMS states: pt has hx of HTN, noncompliant with his meds for past sm5 year. pt's initial BP for ems was 239/120's. ems gave 324mg aspirin, 100mcg fentanyl, 20mg labetalol. Coronavirus screen: Vaccine status: Patient reports receiving the 2nd dose of the covid vaccine. Ebola Screen: No symptoms or risks identified at this time. Initial Sepsis Screen: Does the patient meet any 2 criteria? No. Patient's initial sepsis screen is negative. Does the patient have a suspected source of infection? No. Patient's initial sepsis screen is negative. Risk Assessment: Do you want to hurt yourself or someone else? Patient reports no desire to harm self or others. Onset of symptoms was September 26, 2021. 19:13 Method Of Arrival: EMS: [facility] 19:13 Acuity: CHELSIE 3 sm5 Triage Assessment: 19:20 General: Appears uncomfortable, Behavior is appropriate for age. Pain: Complains of sm5 pain in chest. Neuro: Level of Consciousness is awake, alert, obeys commands, Oriented to person, place, time, situation. Cardiovascular: Reports chest pain, Capillary refill < 3 seconds Patient's skin is warm and dry. Respiratory: Airway is patent Trachea midline Respiratory effort is even, unlabored. Historical: - Allergies: 19:18 PENICILLINS; sm5 - PMHx: 19:18 Arthritis; Bronchitis; Diabetes - NIDDM; Gout; heart disease; Hypertension; PTSD; sm5 Myocardial infarction; - PSHx: 19:18 Stented artery; sm5 - Immunization history:: Client reports receiving the 2nd dose of the Covid vaccine. - Social history:: Smoking status: Patient reports the use of cigarette tobacco products, smokes .75 packs per day. Screenin:20 Abuse screen: Denies threats or abuse. Denies injuries from another. Nutritional sm5 screening: No deficits noted. Tuberculosis screening: No symptoms or risk factors identified. Fall Risk None identified. Assessment: 19:30 Reassessment: see triage assessment. sm5 20:40 Reassessment: pt stating he does not need to be admitted and wants to go home. this RN 5 explained to pt about unstable vital signs, including high BP, lab results indicating heart damage and potential heart attack and the need for further treatment and workup. Pt stating he needs to get home to his girlfriend and that is his immediate concern and he does not want to stay. This RN continued to educate patient on importance of getting treatment and further workup. [facility] at bedside to also explain to pt about importance of staying and his lab results. Pt continuing to say he would like to leave. AMA form signed, informed pt to return back here immediately if chest pain or other symptoms worsen or continue. 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 Prescriptions given to pt and advised to fill medications as soon as possible.. Vital Signs: 19:13 BP 219 / 118; Pulse 86; Resp 14; Pulse Ox 96% on R/A; Weight 99.79 kg; Height 6 ft. 1 5 in. (185.42 cm); Pain 10/10; 20:21 BP 205 / 103; Pulse 67; Resp 10; Pulse Ox 97% on R/A; sm5 20:59 BP 179 / 93; Pulse 69; Resp 18; Pulse Ox 97% on R/A; sm5 21:19 BP 195 / 94; Pulse 69; Resp 17; Pulse Ox 97% on R/A; sm5 19:13 Body Mass Index 29.03 (99.79 kg, 185.42 cm) [facility] ED Course: 19:12 Patient arrived in ED. as6 19:12 Dante Bustamante, JOVANY is Primary Nurse. as6 19:16 Antwan Jones NP is PHCP. pm1 19:18 Triage completed. 5 19:20 Arm band placed on right wrist. EKG completed in triage. Results shown to . 5 19:21 Sherif Glynn MD is Attending Physician. [facility] 19:21 Patient has correct armband on for positive identification. Bed in low position. Call [facility] light in reach. Side rails up X2. Client placed on continuous cardiac and pulse oximetry monitoring. NIBP monitoring applied. 19:51 XRAY Chest (1 view) In Process Unspecified. EDMS 20:08 Maintain EMS IV. Dressing intact. Site clean \T\ dry. Gauge \T\ site: 20G L hand. sm 5 21:29 No provider procedures requiring assistance completed. IV discontinued, intact, sm5 bleeding controlled, No redness/swelling at site. Pressure dressing applied. Administered Medications: 20:08 Drug: Nitroglycerin 0.4 mg Route: Sublingual; sm5 20:08 Drug: Pepcid (famotidine) 20 mg Route: IVP; Site: left hand; sm5 21:25 Follow up: Response: No adverse reaction sm5 20:08 Drug: Metoprolol 5 mg Route: IVP; Site: left hand; sm5 21:25 Follow up: Response: No adverse reaction sm5 20:20 Drug: Nitroglycerin 0.4 mg Route: Sublingual; sm5 21:27 Follow up: Response: No adverse reaction sm5 20:39 Drug: Metoprolol 5 mg Route: IVP; Site: left hand; sm5 21:24 Follow up: Response: No adverse reaction sm5 21:09 Drug: morphine 4 mg Route: IVP; Infused Over: 4 mins; Site: left hand; sm5 21:24 Follow up: Response: No adverse reaction sm5 21:09 Drug: Insulin Regular Human 10 units {Co-Signature: as6 (Dante Bustamante RN).} Route: sm5 Sub-Q; Site: abdomen; 21:24 Follow up: Response: No adverse reaction sm5 Medication: 19:20 VIS not applicable for this client. sm5 Outcome: 21:28 Patient left the ED. sm5 21:30 critical sm5 21:30 Instructed on need to come back if symptoms continue or worsen Signatures: Dispatcher [employer] EDMS Sherif Glynn MD MD cha Marinas, Patrick, NP PLANT TECHNICAL SPECIALIST pm1 Dante Bustamante RN RN as6 Carmel Teran RN RN sm5 Dante Bustamante RN as6
--- NOTE | 2021-09-26 21:07 | EDPHYS ---
Physician Documentation [facility] Name: Matt Farrell Age: 56 yrs Sex: Male : 1965 Arrival Date: 09/26/2021 Time: 19:12 Bed 2 Private MD: ED Physician Sherif Glynn HPI: 09/26 19:28 This 56 yrs old Male presents to ER via EMS with complaints of Chest pain. pm1 19:28 The patient or guardian reports chest pain that is located primarily in the mid-sternal pm1 area. Onset: 2 hour(s) ago. The pain does not radiate. Associated signs and symptoms: Pertinent positives: diaphoresis, nausea, Pertinent negatives: abdominal pain, headache, shortness of breath, vomiting. The chest pain is described as a pressure. Duration: The patient or guardian reports a single episode, that is still ongoing. Severity of pain: in the emergency department the pain has improved With fentanyl given by EMS. EMS care prior to arrival includes: aspirin, Fentanyl. The patient has experienced a previous episode, many years ago, and the symptoms today are exactly the same, To his OK in 2003 that required a single stent. The patient has not recently seen a physician, Patient has not seen a physician in over a year and has decided to stop taking his medications for his diabetes and high blood pressure. Historical: - Allergies: 19:18 PENICILLINS; sm5 - PMHx: 19:18 Arthritis; Bronchitis; Diabetes - NIDDM; Gout; heart disease; Hypertension; PTSD; sm5 Myocardial infarction; - PSHx: 19:18 Stented artery; sm5 - Immunization history:: Client reports receiving the 2nd dose of the Covid vaccine. - Social history:: Smoking status: Patient reports the use of cigarette tobacco products, smokes .75 packs per day. ROS: 19:28 Constitutional: Negative for fever, chills, and weight loss. pm1 19:28 Respiratory: Negative for shortness of breath, cough, wheezing, and pleuritic chest pain. 19:28 Back: Negative for injury and pain, MS/Extremity: Negative for injury and deformity, Skin: Negative for injury, rash, and discoloration, Neuro: Negative for headache, weakness, numbness, tingling, and seizure. 19:28 Cardiovascular: Positive for chest pain, Negative for edema, palpitations. 19:28 Abdomen/GI: Positive for nausea, Negative for abdominal pain, vomiting, diarrhea. 19:28 All other systems are negative. Exam: 19:28 Constitutional: This is a well developed, well nourished patient who is awake, alert, pm1 and in no acute distress. Head/Face: Normocephalic, atraumatic. 19:28 Back: No spinal tenderness. No costovertebral tenderness. Full range of motion. Skin: Warm, dry with normal turgor. Normal color with no rashes, no lesions, and no evidence of cellulitis. MS/ Extremity: Pulses equal, no cyanosis. Neurovascular intact. Full, normal range of motion. 19:28 Cardiovascular: Exam negative for acute changes, Rate: normal, Rhythm: regular, Pulses: no pulse deficits are appreciated, Heart sounds: normal, normal S1and S2. 19:28 Respiratory: Exam negative for acute changes, respiratory distress, shortness of breath, Breath sounds: are clear throughout. 19:28 Abdomen/GI: Exam negative for acute changes, Inspection: abdomen appears normal, Palpation: abdomen is soft and non-tender, in all quadrants. 19:28 Neuro: Exam negative for acute changes, Orientation: is normal, Mentation: is normal, Motor: is normal, moves all fours. Vital Signs: 19:13 BP 219 / 118; Pulse 86; Resp 14; Pulse Ox 96% on R/A; Weight 99.79 kg; Height 6 ft. 1 sm5 in. (185.42 cm); Pain 10/10; 20:21 BP 205 / 103; Pulse 67; Resp 10; Pulse Ox 97% on R/A; 5 20:59 BP 179 / 93; Pulse 69; Resp 18; Pulse Ox 97% on R/A; sm5 21:19 BP 195 / 94; Pulse 69; Resp 17; Pulse Ox 97% on R/A; sm5 19:13 Body Mass Index 29.03 (99.79 kg, 185.42 cm) [facility] MDM: 19:21 Patient medically screened. [facility] 19:29 Data reviewed: vital signs. Data interpreted: Pulse oximetry: on room air is 97 %. pm1 Interpretation: normal. 21:00 Refusal of service: The patient/guardian displays adequate decision making capability pm1 and despite a detailed discussion of alternatives, benefits, risks, and consequences refuses: Admission to the hospital for further work-up and treatment, Patient refuses to be admitted to the hospital. Patient reports he is concerned about his wheelchair bound girlfriend and his dogs because no one is available to take care of them if he is not home. I informed the patient that he has a heart attack and if he goes home he will . Patient still wants to go home after I informed him of the gravity of his diagnosis. He requested a prescription for blood pressure medicine and nitro to go home with. Patient has not taken any medications for over 1 year for his hypertension and diabetes. Informed patient that he can return to the ER at any time for admission. 09/26 19:28 Order name: Basic Metabolic Panel; Complete Time: 20:18 pm09/26 19:28 Order name: CBC with Diff; Complete Time: 20:18 pm09/26 19:28 Order name: LFT's; Complete Time: 20:18 pm09/26 19:28 Order name: Magnesium; Complete Time: 20:18 pm09/26 19:28 Order name: NT PRO-BNP; Complete Time: 20:18 pm09/26 19:28 Order name: PT-INR; Complete Time: 20:18 pm09/26 19:28 Order name: Troponin HS; Complete Time: 20:18 pm09/26 19:28 Order name: XRAY Chest (1 view); Complete Time: 20:18 pm09/26 19:35 Order name: COVID-19 SARS RT PCR (Document "Date of Onset" if Symptomatic); Complete pm1 Time: 21:09/26 21:09 Order name: Glucose, Ancillary Testing; Complete Time: 21:22 EDMS 09/26 19:28 Order name: EKG; Complete Time: 19:29 pm09/26 19:28 Order name: Cardiac monitoring; Complete Time: 19:45 pm09/26 19:28 Order name: EKG - Nurse/Tech; Complete Time: 19:45 pm09/26 19:28 Order name: IV Saline Lock; Complete Time: 19:45 pm09/26 19:28 Order name: Labs collected and sent; Complete Time: 19:45 pm09/26 19:28 Order name: O2 Per Protocol; Complete Time: 19:45 pm09/26 19:28 Order name: O2 Sat Monitoring; Complete Time: 19:46 pm1 Administered Medications: 20:08 Drug: Nitroglycerin 0.4 mg Route: Sublingual; sm5 20:08 Drug: Pepcid (famotidine) 20 mg Route: IVP; Site: left hand; sm5 21:25 Follow up: Response: No adverse reaction sm5 20:08 Drug: Metoprolol 5 mg Route: IVP; Site: left hand; sm5 21:25 Follow up: Response: No adverse reaction sm5 20:20 Drug: Nitroglycerin 0.4 mg Route: Sublingual; sm5 21:27 Follow up: Response: No adverse reaction sm5 20:39 Drug: Metoprolol 5 mg Route: IVP; Site: left hand; sm5 21:24 Follow up: Response: No adverse reaction sm5 21:09 Drug: morphine 4 mg Route: IVP; Infused Over: 4 mins; Site: left hand; sm5 21:24 Follow up: Response: No adverse reaction sm5 21:09 Drug: Insulin Regular Human 10 units {Co-Signature: as6 (Dante Bustamante RN).} Route: sm5 Sub-Q; Site: abdomen; 21:24 Follow up: Response: No adverse reaction sm5 Disposition Summary: 09/26/21 21:06 Left Against Medical Advice Location: Home pm1 Problem: new pm1 Symptoms: have improved pm1 Condition: Critical pm1 Diagnosis - Myocardial infarction - NSTEMI pm1 Followup: pm1 - With: Emergency Department - When: Upon discharge from the Emergency Department - Reason: Worsening of condition, Continuance of care Followup: pm1 - With: Private Physician - When: Upon discharge from the Emergency Department - Reason: Recheck today's complaints, Continuance of care, Re-evaluation by your physician Discharge Instructions: - Discharge Summary Sheet pm1 - Heart Attack pm1 Prescriptions: - Nitrostat 0.4 mg Sublingual Tablet, Sublingual - place 1 tablet by SUBLINGUAL route one time As needed - at the first sign of an pm1 attack; no more than 3 tablets are recommended within a 15 minute period.; 25 tablet; Refills: 0, Product Selection Permitted - Metoprolol Tartrate 25 mg Oral Tablet - take 1 tablet by ORAL route 2 times per day with a meal; 20 tablet; Refills: 0, pm1 Product Selection Permitted Signatures: Dispatcher [facility] Sherif Oneal MD MD cha Marinas, Patrick, [facility] SEWING INSPECTOR pm1 Carmel Teran, RN RN sm5 Dante Bustamante RN as6
[2021-09-26] MEDS ORDERED: MORPHINE 4 MG/ML SYR ONE (21:09)
[2021-09-26] MEDS ORDERED: INSULIN -REGULAR HUMAN 50 UNIT/0.5 ML ML ONE (21:10)
[2021-09-26 21:52] VITALS: O2SAT 97
[2021-09-26 21:59] VITALS: BP 195/94
--- NOTE | 2021-09-28 12:48 | EKG ---
Test Date: 2021-09-26 Test Time: 19:16:08 Clam Bed Worker: JEAN MEASUREMENT RESULTS: Intervals: Rate: 81 NC: 184 QRSD: 110 QT: 404 QTc: 469 [place]: P: 64 NC: 184 QRS: 42 T: 81 INTERPRETIVE STATEMENTS: Sinus rhythm with occasional premature ventricular complexes Possible Left atrial enlargement Anterior infarct, age undetermined Abnormal ECG No previous ECG available for comparison Electronically Signed On 09-28-21 12:47:12 CDT by Checo Buenrostro
== END 2021-09-26 21:28 | disposition left against medical advice (07) ==
LOC: ER 19:05
DX: I21.4 Non-ST elevation (NSTEMI) myocardial infarction (principal); I10 Essential (primary) hypertension; E11.9 Type 2 diabetes mellitus without complications; I25.2 Old myocardial infarction; I51.9 Heart disease, unspecified; F17.210 Nicotine dependence, cigarettes, uncomplicated; Z88.0 Allergy status to penicillin; Z20.822 Contact with and (suspected) exposure to COVID-19
CPT/HCPCS: 93005; 85025; 80048; 36415; 83735; 85610; 82947; 80076; 84484; 83880; 71045; 96375; 96372; 96374; 99284; U0003; J1815; J3490

== ENCOUNTER 2024-03-03 12:37 | Inpatient (IN) | payer OTHER ==
--- OUTSIDE RECORDS SUMMARY | 2024-03-03 12:41 | XMS REPORT | Continuity of Care Document ---
Author Name Unknown Address [address] [facility]. [address] [place] [address] [facility] Address [address] [place] [address] [place] [id number] Care Team Providers Care Sales Support Specialist Name Role Phone PCP, PATIENT DOES NOT HAVE A Primary Care Physic tonya Unavailable Raad Rajput Attending Clinician Unavailable DALLIN MATHIS Attending Clinician Unavailable DALLIN MATHIS Attending Clinician Unavailable Dallin Mathis MD Attending Clinician [phone] AWILDA REED Attending Clinician Unavailab AWILDA Bolton Attending Clinician Unavailab KELLEN Christian Attending Clinician UnaKellen Dietrich MD Attending Clinician + ERIKA WASHBURN Attending Clinician Unavailable Doctor Unassigned, [place] Attending Clinician Tamera Gomez Attending Clinician [phone] Dorian Mann DO Attending Clinician [phone] Ayse Hernandez MD Attending Clinician [phone] Jameel Ma MD Attending Clinician [phone] AWILDA REED Admitting Clinician Unavailab KELLEN Christian Admitting Clinician Darlin ocasio Johnathan MERA Dorian Admitting Clinician Payers Payer Name Policy Type Policy Number Effective Date Expirati on Date Source [facility] [id number] 2018 00:00:00 [employer] [id number] 2024 00:00:00 [facility] [id number] 2023 00:00:00 [facility] (Medicaid) [id number] [facility] (Medicaid) [id number] [facility] (Medicaid) [id number] [facility] Problems Condition Name Condition Details Condition Category Status Onset Date Resolution Date Last Treatment Date Treating Clinician Comments Source Perirectal abscess Perirectal abscess Disease Active 11-23 00:00: 00 [facility] Chronic gout of multiple sites Chronic gout of multiple sites Disease Active 2016-03 00:00: 00 [facility] Chronic gout of multiple sites Chronic gout of multiple sites Disease Active 2016-03 00:00: 00 [facility] Type 2 diabetes mellitus with neurologic complicati on Type 2 diabetes mellitus with neurologic complicati on Disease Active 2016-03 00:00: 00 [facility] Orthostati c hypotensio n Orthostati c hypotensio n Disease Active 07-06 00:00: 00 [facility] Hypoxia Hypoxia Disease Active 07-04 00:00: 00 [facility] Hypotensio n Hypotensio n Disease Active 07-02 00:00: 00 [facility] Total knee replacemen t status Total knee replacemen t status Disease Active 06-29 00:00: 00 [facility] Obesity (BMI 30-39.9) Obesity (BMI 30-39.9) Disease Active 2015-03 00:00: 00 [facility] Depression Depression Disease Active 10-24 00:00: 00 [facility] Substance abuse Substance abuse Disease Active 10-24 00:00: 00 [facility] [id number] Tobacco use disorder Problem Active [facility] [id number] Mixed hyperlipid emia Problem Active [facility] [id number] Stented coronary artery Problem Active [facility] Essential hypertensi on Essential (primary) hypertensi on Problem Active [facility] [id number] Asymptomat ic hypertensi ve urgency Problem Active [facility] [id number] HTN, goal below 130/80 Problem Active [facility] [id number] Bipolar affective disorder, remission status unspecifie d Problem Active [facility] [id number] Coronary artery disease involving [place] coronary artery of [place] heart, angina presence unspecifie d Problem Active [facility] [id number] History of [place] (myocardia l infarction ) Problem Active [facility] [id number] Depression with anxiety Problem Active [facility] [id number] Type 2 diabetes mellitus with complicati on, without long-term current use of insulin Problem Active [facility] [id number] Restless leg syndrome Problem Active [facility] [id number] Gout of foot, unspecifie d cause, unspecifie d chronicity , unspecifie d laterality Problem Active [facility] [id number] GERD without esophagiti s Problem Active [facility] Allergies, Adverse Reactions, Alerts Allergy Name Allergy Type Status Severity Reaction(s) Onset Date Inactive Date Treating Clinician Comments Source Hymenopt era Allergen ic Extract Propensi ty to adverse reaction s Active Anaphylaxis 10-07 00:00: 00 [facility] HYMENOPT ERA ALLERGEN IC EXTRACT DRUG INGREDI Active Anaphylaxis 10-07 00:00: 00 [facility] Social History Social Habit Start Date Stop Date Quantity Comments Source History of Tobacco Use Current Smoker [facility] Sex Assigned At [facility] History SDOH Alcohol Frequency [facility] History SDOH Alcohol Std Drinks [facility] History SDOH Alcohol Binge [facility] Alcoholic beverage intake 2023-09-22 00:00:00 2023-09-22 00:00:00 0 /d [facility] History of Social function 2023-09-22 00:00:00 2023-09-22 00:00:00 [facility] Exposure to SARS-CoV-2 (event) 2022-02-09 00:00:00 2022-02-19 05:27:00 Not sure [facility] Alcohol intake 2022-02-19 00:00:00 2022-02-19 00:00:00 0 /d [facility] Alcohol Comment 2016-07-02 00:00:00 2016-07-02 00:00:00 Drank 1/2 gal of whiskey between age 20-30s. No drinking currently. [facility] Cigarettes smoked current (pack per day) - Reported 2016-06-27 00:00:00 2016-06-27 00:00:00 [facility] Cigarette pack-years 2016-06-27 00:00:00 2016-06-27 00:00:00 [facility] Tobacco use and exposure 2016-06-27 00:00:00 2016-06-27 00:00:00 Smokeless tobacco non-user [facility] Smoking Status Start Date Stop Date Source Smokes tobacco daily 2016-06-27 00:00:00 [facility] Medications Ordered Medication Name Filled Medication Name Start Date Stop Date Current Medication? Ordering Clinician Indication Dosage Frequency Signature (SIG) Comments Components Source aspirin chewable tablet 81 mg 2023-03 15:00: 00 Yes 81mg 81 mg, Oral, DAILY, First dose on 03/03/24 at 0900, Until Discontinu ed, [facility] 25,000 Units/250 mL (Premixed Bag) in 0.45 % NS 2023-03 15:15: 00 Yes 0U/h 0-2,750 Units/hr (0-27.5 mL/hr), IV Infusion, CONTINUOUS , Starting on 03/02/24 at 0915, Initiate infusion at 1,000 Units/hr (calculate d at 12 units/kg/h r, rounded to the closest 50 units) DO NOT Exceed the MAXIMUM 1,000 units/hr for initiation of heparin infusion. CAUTION - If LMWH given in ER, AVOID bolus and start next dose/drip 12 hrs after ER dosage. Must program rate using programmab le infusion pump. Check with the ordering provider first prior to any administra tion should the patient be on existing/a dditional anticoagul ant therapy. Range, Dosing and Testing: FOR [facility], [facility], AND [facility] ONLY - aPTT < 35: Bolus 5000 units, increase rate 300 units/hr - aPTT 35-44: Bolus 3000 units, increase rate 200 units/hr - aPTT 45-54: Increase rate 100 units/hr - aPTT 55-85: NO CHANGE - aPTT 86-95: Decrease rate 100 units/hr - aPTT 96-120: Hold 30 minutes, decrease rate 150 units/hr - aPTT > 120: Hold 60 minutes, decrease rate 200 units/hr Check aPTT 6 hours after initiation , then Q6H after every change, aPTT Q12H once therapeuti c levels are reached. FOR [facility] ONLY - aPTT < 40: Bolus 5000 units, increase rate 300 units/hr - aPTT 40-49: Bolus 3000 units, increase rate 200 units/hr - aPTT 50-59: Increase rate 100 units/hr - aPTT 60-85: NO CHANGE - aPTT 86-95: Decrease rate 100 units/hr - aPTT 96-120: Hold 30 minutes, decrease rate 150 units/hr - aPTT > 120: Hold 60 minutes, decrease rate 200 units/hr Check aPTT 6 hours after initiation , then Q6H after every change, aPTT Q12H once therapeuti c levels are reached. DO NOT ADJUST INITIAL BOLUS OR INITIAL INFUSION RATE. [facility] aspirin tablet 325 mg 2023-03 15:15: 00 03-02 15:12 :00 No 325mg 325 mg, Oral, ONCE, 1 dose, On 03/02/24 at 0915, STAT [facility] heparin (1,000 unit/mL, 10 mL vial) for Rebolusing 2023-03 15:00: 47 Yes 3000U FOR REBOLUSING , Starting on 03/02/24 at 0900, Until Discontinu ed, Routine, Dosing based on aPTT testing parameters (refer to continuous heparin drip order). [facility] methylpredn isolone sod succ (SOLU-MEDRO L) injection 125 mg 2023-03 14:30: 00 03-02 13:43 :00 No 125mg 125 mg, Slow IV Push, ONCE, 1 dose, On 03/02/24 at 0830, STAT [facility] ipratropium -albuteroL (DUONEB) 0.5 mg-3 mg(2.5 mg base)/3 mL nebulizer solution 3 mL 2023-03 14:30: 00 03-02 13:45 :00 No 3mL 3 mL, Inhalation , ONCE NOW, 1 dose, On 03/02/24 at 0830, VISH [facility] levoFLOXaci n (LEVAQUIN) tablet 500 mg 2023-03 13:30: 00 03-02 13:43 :00 No 500mg 500 mg, Oral, ONCE, 1 dose, On 03/02/24 at 0730, VISH, Reason for Anti-Infec tive: Empiric Therapy for Suspected Infection, Empiric Therapy Site: Respirator y, Duration of therapy: Once (ED) [facility] hydralAZINE (APRESOLINE ) injection 10 mg 09-21 19:07: 27 Yes 10mg 10 mg, Slow IV Push, Q6HPRN, Starting on Mon09/22/23 at 1407, Until Discontinu ed, Routine, DBP=>100; SBP=>180, For SBP > 160 [facility] NaCl 0.9% (NS) bolus infusion 1,000 mL 09-21 17:45: 00 09-21 19:10 :00 No 1000mL at 999 mL/hr, 1,000 mL, IV Infusion, ONCE, 1 dose, On Mon09/22/23 at 1245, VISH [facility] lidocaine-r acepinep-te tracaine (L.E.T. (LIDO-EPINE PH-TETRA)) 4-0.05-0.5 % topical gel 3 mL 2021-03 15:00: 00 02-19 14:02 :00 No 3mL 3 mL, Topical, ONCE, 1 dose, On 02/19/22 at 0900, Routine [facility] ondansetron (ZOFRAN (PF)) injection 4 mg 2021-03 13:00: 00 02-19 13:01 :00 No 4mg 4 mg, Slow IV Push, ONCE, 1 dose, On 02/19/22 at 0700, VISH [facility] morpHINE (4 mg/mL) injection 4 mg 2021-03 13:00: 00 02-19 13:02 :00 No 4mg 4 mg, Slow IV Push, ONCE, 1 dose, On 02/19/22 at 0700, STAT [facility] acyclovir 200 mg capsule 2021-03 00:00: 00 Yes [id number] 800mg Take 4 capsules by mouth 5 (five) times daily. [facility] lisinopriL 20 mg tablet 2021-03 00:00: 00 03-22 05:59 :00 No [id number] 20mg Take 1 tablet by mouth at bedtime for 30 days. [facility] ProAir HFA 108 (90 Base) MCG/ACT ProAir HFA 108 (90 Base) MCG/ACT 11-26 00:00: 00 No 2{puffs _as_nee ded} ProAir HFA 108 (90 Base) MCG/ACT INDOMETHACI N ORAL 11-25 00:19: 15 Yes 50mg Take 50 mg by mouth 2 (two) times daily. [facility] MULTIVITAMI N ORAL 11-25 00:19: 15 Yes Take by mouth. [facility] amLODIPine 10 mg tablet 11-25 00:00: 00 01-04 04:59 :00 No [id number] 10mg Take 1 tablet by mouth daily for 39 days. [facility] lisinopriL 10 mg tablet 11-25 00:00: 00 12-26 04:59 :00 No [id number] 10mg Take 1 tablet by mouth daily for 30 days. [facility] aspirin 81 mg chewable tablet 11-25 00:00: 00 12-26 04:59 :00 No [id number] 81mg Take 1 tablet by mouth daily for 30 days. [facility] carvediloL 3.125 mg tablet 11-25 00:00: 12-26 04:59 :00 No [id number] 3.125mg Take 1 tablet by mouth 2 (two) times daily with meals for 30 days. [facility] nicotine 14 mg/24 hr patch 11-25 00:00: 00 12-26 04:59 :00 No [id number] 1{patch } Apply 1 Patch to area(s) every 24 (twenty-fo ur) hours for 30 days. [facility] bupivacaine (preserv free) 0.5% (SENSORCAIN E MPF) 0.5 % (5 mg/mL) injection 11-24 19:22: 00 11-24 19:22 :00 No CONTINUOUS PRN, Starting Mon11/24/20 at 1422, Until Discontinu ed, Routine, Intra-op [facility] INDOMETHACI N ORAL 11-24 19:19: 15 Yes 50mg Take 50 mg by mouth 2 (two) times daily. [facility] lactated ringers IV infusion 1,000 mL 11-24 19:15: 00 11-25 02:24 :21 No 1000mL at 100 mL/hr, 1,000 mL, IV Infusion, CONTINUOUS , Starting Mon11/24/20 at 1415, Until Mon11/24/20 at 2124, Routine, PACU [facility] aspirin chewable tablet 81 mg 11-24 14:00: 00 11-25 02:24 :21 No 81mg 81 mg, Oral, DAILY, First dose on Mon11/24/20 at 0900, Until Discontinu ed, Routine [facility] lisinopriL (PRINIVIL,Z ESTRIL) tablet 10 mg 11-24 14:00: 00 11-25 02:24 :21 No 10mg 10 mg, Oral, DAILY, First dose on Mon11/24/20 at 0900, Until Discontinu ed, Routine [facility] enoxaparin (LOVENOX) injection 40 mg 11-24 14:00: 00 11-25 02:24 :21 No 40mg 40 mg, Subcutaneo us, DAILY, First dose on Mon11/24/20 at 0900, Until Discontinu ed, Routine [facility] carvediloL (COREG) tablet 3.125 mg 11-24 13:00: 00 11-25 02:24 :21 No 3.125mg 3.125 mg, Oral, BID MEALS, First dose on Mon11/24/20 at 0800, Until Discontinu ed, Routine [facility] Sliding Scale Insulin-Reg ular + Fsbg Testing 11-24 12:30: 00 11-25 02:24 :21 No Subcutaneo us, AC+HS, First dose on Mon11/24/20 at 0730, Until Discontinu ed, Routine [facility] nicotine (NICODERM) 14 mg/24 hr patch 1 Patch 11-24 06:45: 00 11-25 02:24 :21 No 1{patch } 1 Patch, Topical, Administer over 24 Hours, Q24H, First dose on Mon11/24/20 at 0145, Until Discontinu ed, Routine [facility] ampicillin- sulbactam (UNASYN) 3 g in NaCl 0.9% (NS) 100 mL MINI-BAG 11-24 06:45: 00 11-25 02:24 :21 No 3g 3 g, IV Piggyback, Q6H ABX, First dose on Mon11/24/20 at 0145, Until Discontinu ed, Administer over 30 Minutes, 100 mL
Reas on for Anti-Infec tive: Empiric Therapy for Suspected Infection< br>Empi arpita Therapy Site: Skin / Soft tissue
Duration of therapy: 7 days [facility] vancomycin 1500 mg in NS 500 mL IV Piggyback RTU 1,500 mg 11-24 05:45: 00 11-25 02:24 :21 No 15mg/kg 1,500 mg (rounded from 1,531.5 mg = 15 mg/kg ?102.1 kg), IV Piggyback, Q12H ABX, First dose on Mon11/24/20 at 0045, Until Discontinu ed, Administer over 90 Minutes
Reason for Anti-Infec tive: Empiric Therapy for Suspected Infection< br>Empiric Therapy Site: Skin / Soft tissue
Duration of therapy: 7 days [facility] amLODIPine (NORVASC) tablet 10 mg 11-24 05:45: 00 11-25 02:24 :21 No 10mg 10 mg, Oral, DAILY, First dose on Mon11/24/20 at 0045, Until Discontinu ed, Routine [facility] ALPRAZolam (XANAX) tablet 0.25 mg 11-24 05:41: 44 11-25 02:24 :21 No .25mg 0.25 mg, Oral, QHSPRN, Starting Mon11/24/20 at 0041, Until Mon11/24/20 at 2124, Routine, Insomnia [facility] hydralAZINE (APRESOLINE ) injection 10 mg 11-24 05:26: 02 11-25 02:24 :21 No 10mg 10 mg, Slow IV Push, Q6HPRN, Starting Mon11/24/20 at 0026, Until Mon11/24/20 at 2123, Routine, DBP=>100; SBP=>160<b r>Indicati on: Hypertensi ve Emergency [facility] glucagon (GLUCAGEN DIAGNOSTIC KIT) injection 1 mg 11-24 05:25: 22 11-25 02:24 :21 No 1mg 1 mg, Intramuscu lar, PRN, Starting Mon11/24/20 at 0025, Until Mon11/24/20 at 2123, VISH, Blood Glucose < or = 70 mg/dL and patient is unable to swallow or has mental changes. [facility] dextrose 50 % in water (D50W) injection 25 mL 11-24 05:25: 22 11-25 02:24 :21 No 25mL 25 mL, Slow IV Push, PRN, Starting Mon11/24/20 at 0025, Until Mon11/24/20 at 2123, VISH, Blood Glucose < or = 70 mg/dL and patient is unable to swallow or has mental status changes. [facility] ondansetron (ZOFRAN (PF)) injection 4 mg 11-24 05:24: 48 11-25 02:24 :21 No 4mg 4 mg, Slow IV Push, Q6HPRN, Starting Mon11/24/20 at 0024, Until Mon11/24/20 at 2123, Routine, Nausea and Vomiting (N/V) [facility] morpHINE injection 2 mg 11-24 05:24: 38 11-25 02:24 :21 No 2mg 2 mg, Slow IV Push, Q4HPRN, Starting Mon11/24/20 at 0024, Until Mon11/24/20 at 2123, Routine, Pain (scale 7-10) [facility] HYDROcodone -acetaminop hen (NORCO 5) 5-325 mg tablet 1 tablet 11-24 05:24: 34 11-25 02:24 :21 No 1{tbl} 1 tablet, Oral, Q6HPRN, Starting Mon11/24/20 at 0024, Until Mon11/24/20 at 2123, Routine, Pain (scale 4-6) [facility] acetaminoph en (TYLENOL) tablet 650 mg 11-24 05:24: 29 11-25 02:24 :21 No 650mg 650 mg, Oral, Q6HPRN, Starting Mon11/24/20 at 0024, Until Mon11/24/20 at 2123, Routine, Pain (scale 1-3) [facility] metroNIDAZO LE in NaCl (iso-os) (FLAGYL I.V.) RTU IV infusion 500 mg 11-24 02:45: 00 11-24 03:55 :00 No 500mg 500 mg, IV Infusion, ONCE NOW, 1 dose, Mon11/23/20 at 2145, Administer over 75 Minutes, 100 mL
Reas on for Anti-Infec tive: Documented Infection< br>Documen teresa Infection Site: Skin / Soft Tissue
Duration of Therapy: Other (see Comments) [facility] piperacilli n-tazobacta m (ZOSYN) 3.375 g in NaCl 0.9% (NS) 100 mL MINI-BAG 11-24 02:45: 00 11-24 02:31 :00 No 3.375g 3.375 g, IV Piggyback, ONCE, 1 dose, Mon11/23/20 at 2145, Administer over 30 Minutes, 100 mL
Reas on for Anti-Infec tive: Documented Infection< br>Documen teresa Infection Site: Skin / Soft Tissue
Duration of Therapy: Other (see Comments) [facility] iopamidol (ISOVUE 370-500 mL) injection 120 mL 11-24 01:53: 00 11-24 01:54 :00 No [id number] 120mL 120 mL, Intravenou s, ONCE, 1 dose, Mon11/23/20 at 2100, Routine [facility] HYDROcodone -acetaminop hen (NORCO) 10-325 mg tablet 1 tablet 11-24 00:45: 00 11-24 00:05 :00 No 1{tbl} 1 tablet, Oral, ONCE NOW, 1 dose, 11/23/20 at 1945, Routine [facility] acetaminoph en 325 mg tablet 11-24 00:00: 00 11-25 04:59 :00 No [id number] 650mg Take 2 tablets by mouth every 6 (six) hours as needed for Pain (scale 1-3). [facility] ibuprofen 800 mg tablet 11-24 00:00: 00 12-25 04:59 :00 No [id number] 800mg Take 1 tablet by mouth every 6 (six) hours as needed for Alternate with Gile for pain scale 4-6 for up to 30 days. [facility] HYDROcodone -acetaminop hen 5-325 mg tablet 11-24 00:00: 00 12-02 04:59 :00 No [id number] 1{tbl} Take 1 tablet by mouth every 6 (six) hours as needed for Pain (scale 7-10) for up to 7 days. Indication s: acute pain [facility] amoxicillin -clavulanat e (AUGMENTIN) 875-125 mg per tablet 11-24 00:00: 00 11-30 04:59 :00 No [id number] 1{tbl} Take 1 tablet by mouth 2 (two) times daily for 5 days. [facility] cloNIDine (CATAPRES) tablet 0.1 mg 04-11 05:45: 00 04-11 04:42 :00 No .1mg 0.1 mg, Oral, ONCE, 1 dose, 04/10/19 at 2345, STAT [facility] cloNIDine 0.1 mg tablet 04-10 00:00: 00 Yes [id number] .1mg Take 1 tablet by mouth 2 (two) times daily. [facility] albuterol 90 mcg/actuati on inhaler 714 00:00: 00 Yes [id number] 2{puff} Inhale 2 Puffs every 4 (four) hours as needed for Wheezing or Shortness of Breath. [facility] azithromyci n (ZITHROMAX Z-AMBAR) 250 mg tablet 10-07 00:00: 00 11-24 00:00 :00 No [id number] 250mg Take 1 tablet by mouth daily. Take 500 mg day 1, then 250 mg days 2 to 5. [facility] benzonatate 100 mg capsule 10-07 00:00: 00 11-24 00:00 :00 No [id number] 100mg Take 1 capsule by mouth 3 (three) times daily as needed for Cough. [facility] methylPREDN ISolone (MEDROL, AMBAR,) 4 mg tablets 10-07 00:00: 00 11-24 00:00 :00 No [id number] Take by mouth SEE-INSTRU CTIONS. follow package directions [facility] Metoprolol Succinate Metoprolol Succinate 07-03 00:00: 00 Yes Raad Rajput 1 capsule [facility] Metformin HCl Metformin HCl 07-03 00:00: 00 Yes Raad Rajput 1 tablet with a meal [facility] Gabapentin Gabapentin 07-03 00:00: 00 Yes Raad Rajput 1 capsule [facility] Lovastatin Lovastatin 07-03 00:00: 00 Yes Raad Rajput 1 tablet with the evening meal [facility] PROPRANOLOL 40 mg tablet 07-20 00:00: 00 Yes [id number] TAKE ONE TABLET BY MOUTH ONCE DAILY [facility] gabapentin 100 mg capsule 06-16 00:00: 00 Yes [id number] 100mg Take 1 capsule by mouth 3 (three) times daily. [facility] canaglifloz in-metformi n (INVOKAMET) 150-1,000 mg per tablet 06-16 00:00: 00 Yes [id number] 150 mg/ 1000 mg one table twice daily [facility] citalopram 20 mg tablet 06-16 00:00: 00 Yes [id number] 20mg Take 1 tablet by mouth daily. [facility] hydroCHLORO thiazide 25 mg tablet 06-16 00:00: 00 Yes [id number] 25mg Take 1 tablet by mouth daily. [facility] Pitavastati n (LIVALO) 4 mg Tab 06-16 00:00: 00 Yes [id number] 1{tbl} Take 1 tablet by mouth at bedtime. [facility] lisinopril 20 mg tablet 06-16 00:00: 00 11-24 00:00 :00 No [id number] 20mg Take 1 tablet by mouth daily. [facility] INDOMETHACI N ORAL 2016-03 14:45: 24 Yes 50mg Take 50 mg by mouth 2 (two) times daily. [facility] MULTIVITAMI N ORAL 2016-03 14:45: 24 Yes Take by mouth. [facility] [place]-3-DHA -EPA-Fish Oil 1,200 (144-216) mg Cap 2016-03 00:00: 00 Yes [id number] 1000mg Take 1,000 mg by mouth 2 (two) times daily. [facility] hydrOXYzine 25 mg tablet 2016-03 00:00: 00 Yes [id number] 25mg Take 1 tablet by mouth at bedtime. [facility] [place]-3-DHA -EPA-Fish Oil 1,200 (144-216) mg Cap 2016-03 00:00: 00 Yes [id number] 1000mg Take 1,000 mg by mouth 2 (two) times daily. [facility] No known medications [facility] No [facility] No known medications No [facility] No [facility] known medications No Un nash [facility] Livalo Livalo Yes Raad Rajput 1 tablet [facility] Indomethaci n Indomethaci n Yes Arad Rajput 1 capsule with food or milk [facility] Invokamet Invokamet Yes Raad Rajput 1 tablet with meals [facility] Prazosin HCl Prazosin HCl Yes Raad Rajput 1 capsule at bedtime [facility] Lyrica Lyrica Yes Raad Rajput 1 capsule [facility] Citalopram Hydrobromid e Citalopram Hydrobromid e Yes Raad Rajput 1 tablet [facility] Cyclobenzap rine HCl Cyclobenzap rine HCl Yes Raad Rajput 1 tablet as needed [facility] Famotidine Famotidine Yes Raad Rajput 1 tablet at bedtime [facility] GlipiZIDE GlipiZIDE Yes Raad Rajput 1 tablet [facility] Aspir-81 Aspir-81 Yes Raad Rajput 1 tablet [facility] Lisinopril Lisinopril Yes Raad Rajput 1 tablet [facility] Propranolol HCl Propranolol HCl Yes Raad Rajput 1 tablet [facility] Hydrochloro thiazide Hydrochloro thiazide Yes Raad Rajput 1 tablet in the morning [facility] HydrOXYzine HCl HydrOXYzine HCl Yes Raad Rajput 1 tablet as needed [facility] glipiZIDE 10 MG glipiZIDE 10 MG No 1{table t} QD glipiZIDE 10 MG Metoprolol Succinate 25 MG Metoprolol Succinate 25 MG No 1{capsu le} QD Metoprolol Succinate 25 MG ProAir HFA 108 (90 Base) MCG/ACT ProAir HFA 108 (90 Base) MCG/ACT No 2{puffs _as_nee ded} ProAir HFA 108 (90 Base) MCG/ACT Citalopram Hydrobromid e 20 MG Citalopram Hydrobromid e 20 MG No 1{table t} QD Citalopram Hydrobromi de 20 MG Lovastatin 40 MG Lovastatin 40 MG No QD Lovastatin 40 MG Aspir-81 81 MG Aspir-81 81 MG No 1{table t} QD Aspir-81 81 MG hydrOXYzine HCl 25 MG hydrOXYzine HCl 25 MG No 1{table t_as_ne eded} hydrOXYzin e HCl 25 MG Gabapentin 100 MG Gabapentin 100 MG No 1{capsu le} TID Gabapentin 100 MG hydroCHLORO thiazide 25 MG hydroCHLORO thiazide 25 MG No 1{table t_in e_morni ng} QD hydroCHLOR Othiazide 25 MG Lisinopril 20 MG Lisinopril 20 MG No 1{table t} QD Lisinopril 20 MG metFORMIN HCl 1000 MG metFORMIN HCl 1000 MG No 1{table t_with_ a_meal} BID metFORMIN HCl 1000 MG glipiZIDE 10 MG glipiZIDE 10 MG No 1{table t} QD glipiZIDE 10 MG metFORMIN HCl 1000 MG metFORMIN HCl 1000 MG No 1{table t_with_ a_meal} BID metFORMIN HCl 1000 MG hydrOXYzine HCl 25 MG hydrOXYzine HCl 25 MG No 1{table t_as_ne eded} hydrOXYzin e HCl 25 MG Gabapentin 100 MG Gabapentin 100 MG No 1{capsu le} TID Gabapentin 100 MG Metoprolol Succinate 25 MG Metoprolol Succinate 25 MG No 1{capsu le} QD Metoprolol Succinate 25 MG hydroCHLORO thiazide 25 MG hydroCHLORO thiazide 25 MG No 1{table t_in e_morni ng} QD hydroCHLOR Othiazide 25 MG Citalopram Hydrobromid e 20 MG Citalopram Hydrobromid e 20 MG No 1{table t} QD Citalopram Hydrobromi de 20 MG glipiZIDE 10 MG glipiZIDE 10 MG No 1{table t} QD glipiZIDE 10 MG Lisinopril 20 MG Lisinopril 20 MG No 1{table t} QD Lisinopril 20 MG Lovastatin 40 MG Lovastatin 40 MG No QD Lovastatin 40 MG ProAir HFA 108 (90 Base) MCG/ACT ProAir HFA 108 (90 Base) MCG/ACT No 2{puffs _as_nee ded} ProAir HFA 108 (90 Base) MCG/ACT Citalopram Hydrobromid e 20 MG Citalopram Hydrobromid e 20 MG No 1{table t} QD Citalopram Hydrobromi de 20 MG Lovastatin 40 MG Lovastatin 40 MG No QD Lovastatin 40 MG hydrOXYzine HCl 25 MG hydrOXYzine HCl 25 MG No 1{table t_as_ne eded} hydrOXYzin e HCl 25 MG Gabapentin 100 MG Gabapentin 100 MG No 1{capsu le} TID Gabapentin 100 MG hydroCHLORO thiazide 25 MG hydroCHLORO thiazide 25 MG No 1{table t_in e_morni ng} QD hydroCHLOR Othiazide 25 MG Lisinopril 20 MG Lisinopril 20 MG No 1{table t} QD Lisinopril 20 MG metFORMIN HCl 1000 MG metFORMIN HCl 1000 MG No 1{table t_with_ a_meal} BID metFORMIN HCl 1000 MG Immunizations Ordered Immunization Name Filled Immunization Name Date Status Comments Source Moderna COVID-19 Vaccine Moderna COVID-19 Vaccine 2020-08-04 09:46:00 Completed [facility] Moderna COVID-19 Vaccine Moderna COVID-19 Vaccine 2020-08-04 09:46:00 Completed [facility] Moderna COVID-19 Vaccine Moderna COVID-19 Vaccine 2020-07-07 10:00:00 Completed [facility] Moderna COVID-19 Vaccine Moderna COVID-19 Vaccine 2020-07-07 10:00:00 [facility] Moderna COVID-19 Vaccine Unknown Completed [facility] Vital Signs Vital Name Observation Time Observation Value Comments S ource Systolic blood pressure 2024-03-02 14:02:00 179 mm[Hg] [facility] Diastolic blood pressure 2024-03-02 14:02:00 103 mm[Hg] [facility] Heart rate 2024-03-02 14:02:00 94 /min [facility] Respiratory rate 2024-03-02 14:02:00 18 /min [facility] Oxygen saturation in Arterial blood by Pulse oximetry 2024-03-02 14:02:00 99 /min [facility] Body temperature 2024-03-02 13:23:00 36.44 Amira [facility] Body height 2024-03-02 13:23:00 182.9 cm [facility] Body weight 2024-03-02 13:23:00 99.791 kg [facility] BMI 2024-03-02 13:23:00 29.84 kg/m2 [facility] Systolic blood pressure 2023-09-22 19:00:00 170 mm[Hg] [facility] Diastolic blood pressure 2023-09-22 19:00:00 88 mm[Hg] [facility] Heart rate 2023-09-22 19:00:00 82 /min Un[facility] Body temperature 2023-09-22 19:00:00 36.67 Amira [facility] Respiratory rate 2023-09-22 19:00:00 13 /min [facility] Oxygen saturation in Arterial blood by Pulse oximetry 2023-09-22 19:00:00 95 /min [facility] Body height 2023-09-22 16:37:00 182.9 cm [facility] Body weight 2023-09-22 16:37:00 102.059 kg [facility] BMI 2023-09-22 16:37:00 30.52 kg/m2 [facility] Systolic blood pressure 2022-02-19 13:30:00 192 mm[Hg] [facility] Diastolic blood pressure 2022-02-19 13:30:00 111 mm[Hg] [facility] Heart rate 2022-02-19 13:30:00 83 /min [facility] Respiratory rate 2022-02-19 13:30:00 18 /min [facility] Oxygen saturation in Arterial blood by Pulse oximetry 2022-02-19 13:30:00 97 /min [facility] Body temperature 2022-02-19 11:29:00 37.28 Amira [facility] Body height 2022-02-19 11:29:00 182.9 cm [facility] Body weight 2022-02-19 11:29:00 102.059 kg [facility] BMI 2022-02-19 11:29:00 30.52 kg/m2 [facility] height 2020-11-26 13:50:00 72 [in_i] Commo n [facility] weight 2020-11-26 13:50:00 224.0 [lb_av] Co mmon [facility] temperature 2020-11-26 13:50:00 98.4 [degF] Com mon [facility] bmi 2020-11-26 13:50:00 30.38 kg/m2 Comm on [facility] oximetry 2020-11-26 13:50:00 97 % Commo n [facility] respiratory rate 2020-11-26 13:50:00 19 /min Common [facility] blood pressure systolic 2020-11-26 13:50:00 178 mm[Hg] Common [facility] blood pressure diastolic 2020-11-26 13:50:00 89 mm[Hg] [facility] Systolic blood pressure 2020-11-24 21:39:00 134 mm[Hg] [facility] Diastolic blood pressure 2020-11-24 21:39:00 73 mm[Hg] [facility] Heart rate 2020-11-24 21:39:00 74 /min [facility] Body temperature 2020-11-24 21:39:00 36.89 Amira [facility] Respiratory rate 2020-11-24 21:39:00 18 /min [facility] Oxygen saturation in Arterial blood by Pulse oximetry 2020-11-24 21:39:00 100 /min [facility] Body height 2020-11-24 16:45:00 188 cm [facility] Body weight 2020-11-23 23:19:00 102.059 kg [facility] BMI 2020-11-23 23:19:00 28.89 kg/m2 [facility] Systolic blood pressure 2020-11-24 19:39:00 100 mm[Hg] [facility] Diastolic blood pressure 2020-11-24 19:39:00 80 mm[Hg] [facility] Heart rate 2020-11-24 19:39:00 72 /min [facility] Respiratory rate 2020-11-24 19:39:00 21 /min [facility] Oxygen saturation in Arterial blood by Pulse oximetry 2020-11-24 19:39:00 95 /min [facility] Body temperature 2020-11-24 19:08:00 36.72 Amira [facility] Body height 2020-11-24 16:45:00 188 cm [facility] Body weight 2020-11-23 23:19:00 102.059 kg [facility] BMI 2020-11-23 23:19:00 28.89 kg/m2 [facility] Systolic blood pressure 2019-04-11 05:17:00 196 mm[Hg] [facility] Diastolic blood pressure 2019-04-11 05:17:00 103 mm[Hg] [facility] Heart rate 2019-04-11 05:17:00 75 /min [facility] Respiratory rate 2019-04-11 05:17:00 18 /min [facility] Oxygen saturation in Arterial blood by Pulse oximetry 2019-04-11 05:17:00 94 /min [facility] Body temperature 2019-04-11 03:08:00 36.67 Amira [facility] Body height 2019-04-11 03:08:00 182.9 cm [facility] Body weight 2019-04-11 03:08:00 106.595 kg [facility] BMI 2019-04-11 03:08:00 31.87 kg/m2 [facility] Procedures Procedure Date / Time Performed Performing Clinician Source EKG-12 LEAD 2024-03-02 15:16:05 Dallin Mathis [facility] XR CHEST 1 VW 2024-03-02 13:38:24 [facility] TROPONIN I 2024-03-02 13:33:00 Dallin Mathis [facility] COMP. METABOLIC PANEL (79842) 2024-03-02 13:33:00 Dallin Mathis [facility] CBC WITH DIFF 2024-03-02 13:33:00 [facility] EKG-12 LEAD 2023-09-22 19:09:27 [facility] 2023-09-22 17:02:25 [facility] 2023-09-22 16:53:00 [facility] COMP. METABOLIC PANEL ([id number]) 2023-09-22 16:53:00 Awilda Reed [facility] CBC WITH DIFF 2023-09-22 16:53:00 [facility] PRO-BNP 2023-09-22 16:53:00 Dong Reed [facility] TROPONIN I 2022-02-19 13:01:00 Kellen Beal [facility] XR CHEST 1 VW 2022-02-19 11:41:29 Kellen Beal [facility] TROPONIN I 2022-02-19 11:33:00 Kellen Beal [facility] COMP. METABOLIC PANEL (33505) 2022-02-19 11:33:00 Kellen Beal [facility] CBC WITH DIFF 2022-02-19 11:33:00 Kellen Beal [facility] RAPID INFLUENZA A/B 2022-02-19 11:33:00 Kellen Badillo [facility] N-TERMINAL PRO-BNP 2022-02-19 11:33:00 Kellen Birmingham [facility] COVID-19 (ID NOW RAPID TESTING) 2022-02-19 11:33:00 Kellen Beal [facility] EXTERNAL PROVIDER - ADC REFERRAL 2021-10-20 05:01:00 Doctor Unassigned, [place] [facility] POCT GLUCOSE (AUTOMATED) 2020-11-24 21:40:00 [place] [facility] POCT GLUCOSE (AUTOMATED) 2020-11-24 21:40:00 [place] [facility] INCISION AND DRAINAGE RECTAL ABSCESS 2020-11-24 17:46:00 Ayse Hernandez [facility] ASPIRATE OR ABSCESS CULTURE(AEROBIC/ANAEROBIC ) 2020-11-24 16:48:00 Essie Lynch [facility] ASPIRATE OR ABSCESS CULTURE(AEROBIC/ANAEROBIC ) 2020-11-24 16:48:00 Essie Lynch [facility] POCT GLUCOSE (AUTOMATED) 2020-11-24 16:26:00 [place] [facility] POCT GLUCOSE (AUTOMATED) 2020-11-24 16:26:00 [facility] POCT GLUCOSE (AUTOMATED) 2020-11-24 12:21:00 [facility] POCT GLUCOSE (AUTOMATED) 2020-11-24 12:21:00 [facility] GLYCOSYLATED HEMOGLOBIN (A1C) 2020-11-24 08:03:00 Dorian Mann [facility] GLYCOSYLATED HEMOGLOBIN (A1C) 2020-11-24 08:03:00 Dorian Mann [facility] LIPID PANEL ([id number])(TOTAL CHOLESTEROL, TRIGLYCERIDES, HDL) 2020-11-24 08:01:00 Dorian Mann [facility] VANCOMYCIN TROUGH 2020-11-24 08:01:00 Dorian Mann [facility] LIPID PANEL (75866)(TOTAL CHOLESTEROL, TRIGLYCERIDES, HDL) 2020-11-24 08:01:00 Dorian Mann [facility] VANCOMYCIN TROUGH 2020-11-24 08:01:00 Dorian Mann [facility] CT ABDOMEN PELVIS W CONTRAST 2020-11-24 01:58:46 Tamera Cosme [facility] CT ABDOMEN PELVIS W CONTRAST 2020-11-24 01:58:46 Tamera Cosme [facility] COMP. METABOLIC PANEL (35486) 2020-11-24 00:15:00 Tamera Cosme [facility] CBC WITH DIFF 2020-11-24 00:15:00 Tamera Cosme [facility] COVID-19 (ID NOW RAPID TESTING) 2020-11-24 00:15:00 Tamera Cosme [facility] LAB ONLY COVID INTERPRETATION 2020-11-24 00:15:00 Tamera Cosme [facility] COMP. METABOLIC PANEL (61529) 2020-11-24 00:15:00 Tamera Cosme [facility] CBC WITH DIFF 2020-11-24 00:15:00 Tamera Cosme [facility] COVID-19 (ID NOW RAPID TESTING) 2020-11-24 00:15:00 Tamera Cosme [facility] LAB ONLY COVID INTERPRETATION 2020-11-24 00:15:00 Tamera Cosme [facility] HOSPITAL ADMISSION 2020-11-23 05:01:00 Doctor Un assigned, [place] [facility] XR SCAPULA RIGHT 2019-04-11 03:42:10 Jameel Ma [facility] NOTICE OF PRIVACY PRACTICES 2019-04-11 03:04:23 Doctor Unassigned, [place] [facility] CONSENT/REFUSAL FOR DIAGNOSIS AND TREATMENT 2019-04-11 02:56:29 Doctor Unassigned, [place] [facility] BCPC - SUBSEQUENT ENCOUNTER 2015-04-21 06:01:00 Doctor Unassigned, [place] [facility] BCPC - SUBSEQUENT ENCOUNTER 2015-01-05 05:01:00 Doctor Unassigned, [place] [facility] BCPC - SUBSEQUENT ENCOUNTER 2014-12-18 05:01:00 Doctor Unassigned, [place] [facility] PATIENT QUESTIONNAIRE 2014-11-20 05:01:00 Doctor Unassigned, [place] [facility] PATIENT QUESTIONNAIRE 2014-11-06 05:01:00 Doctor Unassigned, [place] [facility] Plan of Care Planned Activity Planned Date Details Comments Source Encounters Start Date/Time End Date/Time Encounter Type Admission Type Attending Clinicians Care Facility Care Department Encounter ID Source 2021-10-04 13:23[facility]00 [facility] [id number] 2021-04-21 13:52:25 [facility] [id number] [facility] 2021-04-21 13:52:02 [facility] [id number] [facility] 2021-04-21 13:45:19 [facility] [id number] [facility] 2021-04-21 13:36:16 Outpatient Raad Rajput [facility] [id number] [facility] 2021-01-25 19:11:27 Emergency [facility] [id number] [facility] 2024-03-02 07:25:00 2024-03-02 09:25:00 Emergency X DALLIN MATHIS [facility] [id number] [facility] 2024-03-02 07:25:00 2024-03-02 09:25:00 Emergency Dallin Mathis [facility] [id number] 350.1.13.10 4.2.7.2.686 [id number] [facility] 2023-09-22 11:34:00 2023-09-22 14:15:00 Emergency X AWILDA REED [facility] ERT [id number] [facility] 2023-09-22 11:34:00 2023-09-22 14:15:00 Emergency Awilda Reed [facility] [id number] 350.1.13.10 4.2.7.2.686 [id number] [facility] 2023-03-08 00:00:00 2023-03-08 00:00:00 (TEL) [facility] [id number] [facility] 2022-02-19 05:25:00 2022-02-19 08:10:00 Emergency X AUKELLEN MCDOWELL [facility] ERT [id number] [facility] 2022-02-19 05:25:00 2022-02-19 08:10:00 Emergency AuKellen mcdowell [facility] 1.2.840.114 350.1.13.10 4.2.7.2.686 [id number] [facility] 2021-11-30 11:00:00 2021-11-30 11:00:00 Outpatient Julius WASHBURNERIKA [facility] [id number] [facility] 2021-10-20 00:00:00 2021-10-20 00:00:00 Orders Only Doctor Unassigned, [place] [facility] 1..840.114 350.1.13.10 4.2.7.2.686 [id number] [facility] 2021-10-04 00:00:00 2021-10-04 00:00:00 (TEL) STLMLC STLMLC [id number] [facility] 2020-11-26 00:00:00 2020-11-26 00:00:00 OFFICE VISIT ESTAB PT LEVEL 4 STLMLC STLMLC [id number] [facility] 2020-11-25 00:00:00 2020-11-25 00:00:00 (TEL) STLMLC STLMLC [id number] [facility] 2020-11-23 18:20:00 2020-11-24 19:17:00 Emergency Tamera Cosme [facility] 1..840.114 350.1.13.10 4.2.7.2.686 [id number] [facility] 2020-11-24 13:20:00 2020-11-24 14:40:00 Surgery Ayse Hernandez [facility] [place] 1..840.114 350.1.13.10 4.2.7.2.686 [id number] [facility] 2020-11-23 00:00:00 2020-11-23 00:00:00 (TEL) STLMLC STLMLC [id number] [facility] 2019-04-10 21:18:55 2019-04-11 00:32:00 Emergency Jameel Ma [facility] 1.2.840.114 350.1.13.10 4.2.7.2.686 [id number] [facility] 2019-04-10 00:00:00 2019-04-10 00:00:00 Orders Only Doctor Unassigned, [place] [facility] 1.2.840.114 350.1.13.10 4.2.7.2.686 [id number] [facility] 2018-07-03 09:30:00 2018-07-03 09:30:[address] [employer] [facility] [id number] [facility] 2015-04-21 00:00:00 2015-04-21 00:00:00 Orders Only Doctor Unassigned, [place] [facility] 1.2.840.114 350.1.13.10 4.2.7.2.686 [id number] [facility] 2015-01-05 00:00:00 2015-01-05 00:00:00 Orders Only Doctor Unassigned, [place] [facility] 1.2.840.114 350.1.13.10 4.2.7.2.686 [id number] [facility] 2014-12-18 00:00:00 2014-12-18 00:00:00 Orders Only Doctor Unassigned, [place] [facility] 1.2.840.114 350.1.13.10 4.2.7.2.686 [id number] [facility] 2014-11-20 00:00:00 2014-11-20 00:00:00 Orders Only Doctor Unassigned, [place] [facility] 1.2.840.114 350.1.13.10 4.2.7.2.686 [id number] [facility] 2014-11-06 00:00:00 2014-11-06 00:00:00 Orders Only Doctor Unassigned, [place] [facility] 1.2.840.114 350.1.13.10 4.2.7.2.686 [id number] [facility] Results Test Description Test Time Test Comments Results Resul t Comments Source XR Chest 1 vw 7 15:20:49 EXAM: XR CHEST 1 VW COMPARISON: Chest x-ray on 09/22/2023 HISTORY: chest pain FINDINGS: Lungs: The lungs are adequately expanded. Increased prominence ofinterstitial lung markings with bibasilar hazy reticulonodular opacities.No pleural effusion or pneumothorax. Heart/Mediastinum: The cardiac silhouette appears borderline accounting fortechnique and degree of inspiration. Mild prominence of the centralpulmonary vasculature. Bones and soft tissues: No acute osseous abnormality. [facility] ([id number])2024-03-02 14:32:05* Test Item Value Reference Range Interpretation Comme nts NA (test code = 1724003191) 134 mmol/L 135-145 L K (test code = 7540836076) 4.0 mmol/L 3.5-5.0 CL (test code = 0154916518) 101 mmol/L 98-108 CO2 TOTAL (test code = 5001668715) 26 mmol/L 23-31 AGAP (test code = 2434765525) 7 2-16 BUN (test code = 9633587753) 17 mg/dL 7-23 GLUCOSE (test code = 1045180587) 278 mg/dL 70-110 H CREATININE (test code = 2160-0) 0.50 mg/dL 0.60-1.25 L TOTAL BILI (test code = 9476594871) 0.7 mg/dL 0.1-1.1 CALCIUM (test code = 8610697297) 9.1 mg/dL 8.6-10.6 T PROTEIN (test code = 5181342582) 7.2 g/dL 6.3-8.2 ALBUMIN (test code = 8977671330) 4.3 g/dL 3.5-5.0 ALK PHOS (test code = 7849084708) 73 U/L 34-122 ALTv (test code = 1742-6) 25 U/L 5-50 AST(SGOT) (test code = 7287221844) 28 U/L 13-40 eGFR (test code = 86965-9) 116.8 mL/min/1.73m2 CKD-EPI eGFR (2020). Assuming creatinine has been stable day-to-day for at least three months, the eGFR indicates Category G1 (>= 90 mL/min/1.73 m2) Lab Interpretation (test code = 18703-9) Abnormal [facility] with [id number] 14:05:05* Test Item Value Reference Range Interpretation Comme nts WBC (test code = 6690-2) 7.23 4.20-10.70 RBC (test code = 789-8) 5.09 4.26-5.52 HGB (test code = 718-7) 14.9 g/dL 12.2-16.4 HCT (test code = 4544-3) 44.7 % 38.4-49.3 MCV (test code = 787-2) 87.8 fL 81.7-95.6 MCH (test code = 785-6) 29.3 pg 26.1-32.7 MCHC (test code = 786-4) 33.3 g/dL 31.2-35.0 RDW-SD (test code = 39229-7) 40.2 fL 38.5-51.6 RDW-CV (test code = 788-0) 12.4 % 12.1-15.4 PLT (test code = 777-3) 145 150-328 L MPV (test code = 81914-6) 10.1 fL 9.8-13.0 NRBC/100 WBC (test code = 2209963776) 0.0 0.0-10.0 NRBC x10^3 (test code = 6222300674) See_Comment [Automated [employer] ge] The system which generated this result transmitted reference range: 10*3/?L. The reference range was not used to interpret this result as normal/abnormal. GRAN MAT (NEUT) % (test code = 770-8) 71.1 % IMM GRAN % (test code = 6028390044) 0.40 % LYMPH % (test code = 736-9) 20.3 % MONO % (test code = 5905-5) 6.4 % EOS % (test code = 713-8) 1.2 % BASO % (test code = 706-2) 0.6 % GRAN MAT x10^3(ANC) (test code = 4693094718) 5.14 10*3/uL 1.99-6.95 IMM GRAN x10^3 (test code = 8105266681) 0.03 10*3/uL 0.00-0.06 LYMPH x10^3 (test code = 731-0) 1.47 10*3/uL 1.09-3.23 MONO x10^3 (test code = 742-7) 0.46 10*3/uL 0.36-1.02 EOS x10^3 (test code = 711-2) 0.09 10*3/uL 0.06-0.53 BASO x10^3 (test code = 704-7) 0.04 10*3/uL 0.01-0.09 Lab Interpretation (test code = 70578-6) [facility]normal [facility] [id number] 17:28:17* Test Item Value Reference Range Interpretation Comme nts TROPONIN I (test code = 4943334328) 0.052 ng/mL <=0.034 H LENNOX (test code = LENNOX) Reference (Normal) Range (defined by the 99th percentile reference limit): <= 0.034 ng/mL Note: Cardiac troponin begins to rise 3-4 hours after the onset of ischemia. Repeat in 4-6 hours if the sample was drawn within 3-4 hours of the onset of the symptom and found normal. Diagnosis of myocardial injury is made with acute changes in cTn concentrations with at least one serial sample above the 99th percentile upper reference limit (URL), taken together with the patient's clinical presentation. Biotin has been reported to cause a negative bias, interpret results relative to patient's use of biotin. Lab Interpretation (test code = 72738-2) Abnormal [facility]. METABOLIC PANEL ([id number])2023-09-22 17:26:54* Test Item Value Reference Range Interpretation Comme nts NA (test code = 0197413378) 133 mmol/L 135-145 L K (test code = 6132599799) 3.9 mmol/L 3.5-5.0 CL (test code = 4755247436) 101 mmol/L 98-108 CO2 TOTAL (test code = 9232771611) 24 mmol/L 23-31 AGAP (test code = 4902109351) 8 2-16 BUN (test code = 4848466777) 20 mg/dL 7-23 GLUCOSE (test code = 8289678751) 397 mg/dL 70-110 H CREATININE (test code = 2160-0) 0.52 mg/dL 0.60-1.25 L TOTAL BILI (test code = 1122422513) 0.6 mg/dL 0.1-1.1 CALCIUM (test code = 2830779832) 8.9 mg/dL 8.6-10.6 T PROTEIN (test code = 8930175040) 7.0 g/dL 6.3-8.2 ALBUMIN (test code = 2318781115) 4.3 g/dL 3.5-5.0 ALK PHOS (test code = 8223360641) 72 U/L 34-122 ALTv (test code = 1742-6) 17 U/L 5-50 AST(SGOT) (test code = 4315137893) 24 U/L 13-40 eGFR (test code = 91058-0) 116.1 mL/min/1.73m2 CKD-EPI eGFR (2020). Assuming creatinine has been stable day-to-day for at least three months, the eGFR indicates Category G1 (>= 90 mL/min/1.73 m2) Lab Interpretation (test code = 11507-3) Abnormal [facility] [id number] 17:26:54* Test Item Value Reference Range Interpretation Comme nts NT-proBNP (test code = 89727-2) 716 pg/mL <=125 LENNOX (test code = LENNOX) Result Indeterminate-Consid er causes of NT-proBNP elevation other than Heart failure such as acute coronary syndrome, pulmonary embolism, pulmonary hypertension, sepsis, stroke, and renal dysfunction. Lab Interpretation (test code = 62126-4) Abnormal [facility] 1 [id number] 17:21:38EXAM: XR CHEST 1 09/22/2023 11:55 AM HISTORY: 58 years-old Male with chest pain . TECHNIQUE: Portable AP view of the chest. COMPARISON: 02/19/2022 FINDINGS: Lines and tubes: None. Cardiomediastinal: The cardiomediastinal silhouette is unremarkable. Lungs and pleura: The lungs are clear. No focal consolidation,pneumothorax, or pleural effusion is seen. Included osseous structures show no acute abnormality. [facility] WITH [id number] 17:06:33* Test Item Value Reference Range Interpretation Comme nts WBC (test code = 6690-2) 6.71 4.20-10.70 RBC (test code = 789-8) 5.06 4.26-5.52 HGB (test code = 718-7) 15.4 g/dL 12.2-16.4 HCT (test code = 4544-3) 45.0 % 38.4-49.3 MCV (test code = 787-2) 88.9 fL 81.7-95.6 MCH (test code = 785-6) 30.4 pg 26.1-32.7 MCHC (test code = 786-4) 34.2 g/dL 31.2-35.0 RDW-SD (test code = 24845-0) 41.4 fL 38.5-51.6 RDW-CV (test code = 788-0) 12.8 % 12.1-15.4 PLT (test code = 777-3) 144 150-328 L MPV (test code = 62683-9) 10.0 fL 9.8-13.0 NRBC/100 WBC (test code = 8434411156) 0.0 0.0-10.0 NRBC x10^3 (test code = 8591423371) See_Comment [Automated messa ge] The system which generated this result transmitted reference range: 10*3/?L. The reference range was not used to interpret this result as normal/abnormal. GRAN MAT (NEUT) % (test code = 770-8) 70.8 % IMM GRAN % (test code = 8921254781) 0.40 % LYMPH % (test code = 736-9) 20.3 % MONO % (test code = 5905-5) 6.0 % EOS % (test code = 713-8) 1.9 % BASO % (test code = 706-2) 0.6 % GRAN MAT x10^3(ANC) (test code = 5400886441) 4.75 10*3/uL 1.99-6.95 IMM GRAN x10^3 (test code = 0982447006) 0.03 10*3/uL 0.00-0.06 LYMPH x10^3 (test code = 731-0) 1.36 10*3/uL 1.09-3.23 MONO x10^3 (test code = 742-7) 0.40 10*3/uL 0.36-1.02 EOS x10^3 (test code = 711-2) 0.13 10*3/uL 0.06-0.53 BASO x10^3 (test code = 704-7) 0.04 10*3/uL 0.01-0.09 Lab Interpretation (test code = 76172-5) [id number] 12:14:47* Test Item Value Reference Range Interpretation Comments TROPONIN I (test code = 1020719886) 0.022 ng/mL See_Comment [Automated message] The system which generated this result transmitted reference range: <=0.034. The reference range was not used to interpret this result as normal/abnormal. LENNOX (test code = LENNOX) Reference (Normal) Range (defined by the 99th percentile reference limit): <= 0.034 ng/mL Note: Cardiac troponin begins to rise 3-4 hours after the onset of ischemia. Repeat in 4-6 hours if the sample was drawn within 3-4 hours of the onset of the symptom and found normal. Diagnosis of myocardial injury is made with acute changes in cTn concentrations with at least one serial sample above the 99th percentile upper reference limit (URL), taken together with the patient's clinical presentation. Biotin has been reported to cause a negative bias, interpret results relative to patient's use of biotin. Lab Interpretation (test code = 40735-9) Normal [facility] [id number] 12:11:45* Test Item Value Reference Range Interpretation Comme nts NT-proBNP (test code = 2349320523) 368 pg/mL See_Comment H [Automated message] The system which generated this result transmitted reference range: <=125. The reference range was not used to interpret this result as normal/abnormal. LENNOX (test code = LENNOX) Biotin has been reported to cause a negative bias, interpret results relative to patient's use of biotin. Lab Interpretation (test code = 33951-5) Abnormal [facility] WITH [id number] 12:09:04* Test Item Value Reference Range Interpretation Comme nts WBC (test code = 6690-2) See_Comment [Automated [employer]] The system which generated this result transmitted reference range: 4.20 - 10.70 10*3/?L. The reference range was not used to interpret this result as normal/abnormal. RBC (test code = 789-8) See_Comment [Automated [employer]] The system which generated this result transmitted reference range: 4.26 - 5.52 10*6/?L. The reference range was not used to interpret this result as normal/abnormal. HGB (test code = 718-7) 15.4 g/dL 12.2-16.4 HCT (test code = 4544-3) 43.9 % 38.4-49.3 MCV (test code = 787-2) 86.2 fL 81.7-95.6 MCH (test code = 785-6) 30.3 pg 26.1-32.7 MCHC (test code = 786-4) 35.1 g/dL 31.2-35.0 H RDW-SD (test code = 95008-5) 38.4 fL 38.5-51.6 L RDW-CV (test code = 788-0) 12.0 % 12.1-15.4 L PLT (test code = 777-3) See_Comment L [Automated [employer]] The system which generated this result transmitted reference range: 150 - 328 10*3/?L. The reference range was not used to interpret this result as normal/abnormal. MPV (test code = 68841-3) 9.8 fL 9.8-13.0 IPF % (test code = 9868655786) 3.1 % 1.2-10.7 Platelet count measured by fluorescence method. NRBC/100 WBC (test code = 1270039339) See_Comment [Automated [employer] ssage] The system which generated this result transmitted reference range: 0.0 - 10.0 /100 WBCs. The reference range was not used to interpret this result as normal/abnormal. NRBC x10^3 (test code = 5832571578) See_Comment [Automated messa ge] The system which generated this result transmitted reference range: 10*3/?L. The reference range was not used to interpret this result as normal/abnormal. GRAN MAT (NEUT) % (test code = 770-8) 70.2 % IMM GRAN % (test code = 3521481544) 0.20 % LYMPH % (test code = 736-9) 16.9 % MONO % (test code = 5905-5) 10.6 % EOS % (test code = 713-8) 1.4 % BASO % (test code = 706-2) 0.7 % GRAN MAT x10^3(ANC) (test code = 0676639235) 3.11 10*3/uL 1.99-6.95 IMM GRAN x10^3 (test code = 3218018402) 0.00-0.06 LYMPH x10^3 (test code = 731-0) 0.75 10*3/uL 1.09-3.23 L MONO x10^3 (test code = 742-7) 0.47 10*3/uL 0.36-1.02 EOS x10^3 (test code = 711-2) 0.06 10*3/uL 0.06-0.53 BASO x10^3 (test code = 704-7) 0.03 10*3/uL 0.01-0.09 Lab Interpretation (test code = 17560-8) Abnormal [facility]. METABOLIC PANEL (87302)2022-02-19 12:02:43* Test Item Value Reference Range Interpretation Comme nts NA (test code = 8029471175) 134 mmol/L 135-145 L K (test code = 2347749967) 4.1 mmol/L 3.5-5.0 CL (test code = 9323757783) 102 mmol/L 98-108 CO2 TOTAL (test code = 1136484640) 23 mmol/L 23-31 AGAP (test code = 1924130749) 2-16 BUN (test code = 8471363538) 12 mg/dL 7-23 GLUCOSE (test code = 9869107331) 251 mg/dL 70-110 H CREATININE (test code = 5372214114) 0.51 mg/dL 0.60-1.25 L TOTAL BILI (test code = 1817684905) 0.8 mg/dL 0.1-1.1 CALCIUM (test code = 0820591529) 8.5 mg/dL 8.6-10.6 L T PROTEIN (test code = 8821950190) 6.6 g/dL 6.3-8.2 ALBUMIN (test code = 6808508716) 4.2 g/dL 3.5-5.0 ALK PHOS (test code = 7527905784) 68 U/L 34-122 ALTv (test code = 1742-6) 19 U/L 5-50 AST(SGOT) (test code = 3793964319) 20 U/L 13-40 eGFR (test code = 0662462566) mL/min/1.73m2 LENNOX (test code = LENNOX) Association of Glomerular Filtration Rate (GFR) and Staging of Kidney Disease* + --+ --+ ------+| GFR (mL/min/1.73 m2) ?| With Kidney Damage ?| ?Without Kidney Damage+ --------+ --------+ +| ?>90 ?| ?Stage one ?| ? Normal ?+ ---+ ---+ -------+| ?60-89 ?| ?Stage two ?| ? Decreased GFR ? + --+ --+ ------+| ?30-59 ?| ?Stage three ?| ? Stage three ? + --+ --+ ------+| ?15-29 ?| ?Stage four ? | ? Stage four ?+ ---+ ---+ -------+| ?<15 (or dialysis) ? ?| ?Stage five ? | ? Stage five ?+ ---+ ---+ -------+ *Each stage assumes the associated GFR level has been in effect for at least three months. ?Stages 1 to 5, with or without kidney disease, indicate chronic kidney disease. Notes: Determination of stages one and two (with eGFR >59mL/min/1.73 m2) requires estimation of kidney damage for at least three months as defined by structural or functional abnormalities of the kidney, manifested by either:Pathological abnormalities or Markers of kidney damage (including abnormalities in the composition of the blood or urine or abnormalities in imaging tests). Lab Interpretation (test code = 31270-8) Abnormal [facility] GLUCOSE (AUTOMATED)2020-11-24 23:28:33* Test Item Value Reference Range Interpretation Comme nts POCT GLU (test code = 6318530359) 186 mg/dL 70-110 H Lab Interpretation (test cod e = 59871-6) Abnormal [facility] GLUCOSE (AUTOMATED)2020-11-24 23:28:33* Test Item Value Reference Range Interpretation Comme nts POCT GLU (test code = 0077181396) 186 mg/dL 70-110 H Lab Interpretation (test cod e = 63176-6) Abnormal [facility] GLUCOSE (AUTOMATED)2020-11-24 23:28:33* Test Item Value Reference Range Interpretation Comme nts POCT GLU (test code = 7076962157) 186 mg/dL 70-110 H Lab Interpretation (test cod e = 37060-8) Abnormal [facility] GLUCOSE (AUTOMATED)2020-11-24 23:28:33* Test Item Value Reference Range Interpretation Comme nts POCT GLU (test code = 1905846451) 186 mg/dL 70-110 H Lab Interpretation (test cod e = 00226-5) [facility]normal [facility] [id number] 18:59:04COVID DMT InterpretationInterpretation/Recommendations:Molecular NAAT Tests for Active Infection with the SARS-CoV-2 Virus:The patient has currently tested negative for the SARS-CoV-2 virus that causes COVID-19 illness. This most likely indicates that the patient does not have an active infection with the SARS-CoV-2 virus. However, infection is not completely ruled out as the false negative rate for molecular NAAT testing using a nasopharyngeal sample can be up to 30%, mostly dependent on the timing of sample collection in relation to illness onset and any deficiencies in sampling techniques.If the patient has symptoms concerning for COVID-19 illness, a repeat NAAT test (PCR, Rapid ID Now, etc.) should be performed, at which time the SARS-CoV-2 virus if present may have reached adetectable viral load (usually peaking by the end of the first week of symptoms). Tests for IgM and/or IgG Antibodies to the SARS-CoV-2 Virus:Testing for IgM and IgG antibodies approximately 3 weeks after illness onset will likely indicate if the patient has produced antibodies to the SARS-CoV-2 virus. However, some patients may take longer to develop detectable antibodies, while others infected with SARS-CoV-2 may never develop antibodies, particularly those who have had mild or asymptomatic illness. Of note, if the patient has been vaccinated earlier than 1-2 weeks prior to antibody testing, any positive SARS-CoV-2 IgG antibody result is likely due to vaccination. The specific duration and strength of immunity from SARS-CoV-2 IgG antibodies is highly variable between individuals and is dependent on a variety of factors, including infection vs. vaccination response, initial infection severity, the strength of the patient's own immune system, and the variants to which the patient has been exposed. ? Interpretation Result Comments:These interpretation comments are based upon all COVID-19 testing the patient has had at [facility], including molecular NAAT testing (more commonly known as PCR testing and Rapid ID Nowtesting) and antibody testing. It does not take into account any testing that a patient has had outs jax of the [facility] medical record. [facility] SERVICESCOVID GobpwzcPULU-SzT-0 Rapid ID NOW (no units) ? ? Date ? Value ? 11/23/2020 ? Not Detected ? [facility] [id number] 18:59:04COVID DMT InterpretationInterpretation/Recommendations:Molecular NAAT Tests for Active Infection with the SARS-CoV-2 Virus:The patient has currently tested negative for the SARS-CoV-2 virus that causes COVID-19 illness. This most likely indicates that the patient does not have an active infection with the SARS-CoV-2 virus. However, infection is not completely ruled out as the false negative rate for molecular NAAT testing using a nasopharyngeal sample can be up to 30%, mostly dependent on the timing of sample collection in relation to illness onset and any deficiencies in sampling techniques.If the patient has symptoms concerning for COVID-19 illness, a repeat NAAT test (PCR, Rapid ID Now, etc.) should be performed, at which time the SARS-CoV-2 virus if present may have reached adetectable viral load (usually peaking by the end of the first week of symptoms). Tests for IgM and/or IgG Antibodies to the SARS-CoV-2 Virus:Testing for IgM and IgG antibodies approximately 3 weeks after illness onset will likely indicate if the patient has produced antibodies to the SARS-CoV-2 virus. However, some patients may take longer to develop detectable antibodies, while others infected with SARS-CoV-2 may never develop antibodies, particularly those who have had mild or asymptomatic illness. Of note, if the patient has been vaccinated earlier than 1-2 weeks prior to antibody testing, any positive SARS-CoV-2 IgG antibody result is likely due to vaccination. The specific duration and strength of immunity from SARS-CoV-2 IgG antibodies is highly variable between individuals and is dependent on a variety of factors, including infection vs. vaccination response, initial infection severity, the strength of the patient's own immune system, and the variants to which the patient has been exposed. ? Interpretation Result Comments:These interpretation comments are based upon all COVID-19 testing the patient has had at [facility], including molecular NAAT testing (more commonly known as PCR testing and Rapid ID Nowtesting) and antibody testing. It does not take into account any testing that a patient has had outs jax of the [facility] medical record. [facility]ORY SERVICESCOVID [id number]-NeA-1 Rapid ID NOW (no units) ? ? Date ? Value ? 11/23/2020 ? Not Detected ? [facility] [id number] 18:59:04COVID DMT InterpretationInterpretation/Recommendations:Molecular NAAT Tests for Active Infection with the SARS-CoV-2 Virus:The patient has currently tested negative for the SARS-CoV-2 virus that causes COVID-19 illness. This most likely indicates that the patient does not have an active infection with the SARS-CoV-2 virus. However, infection is not completely ruled out as the false negative rate for molecular NAAT testing using a nasopharyngeal sample can be up to 30%, mostly dependent on the timing of sample collection in relation to illness onset and any deficiencies in sampling techniques.If the patient has symptoms concerning for COVID-19 illness, a repeat NAAT test (PCR, Rapid ID Now, etc.) should be performed, at which time the SARS-CoV-2 virus if present may have reached adetectable viral load (usually peaking by the end of the first week of symptoms). Tests for IgM and/or IgG Antibodies to the SARS-CoV-2 Virus:Testing for IgM and IgG antibodies approximately 3 weeks after illness onset will likely indicate if the patient has produced antibodies to the SARS-CoV-2 virus. However, some patients may take longer to develop detectable antibodies, while others infected with SARS-CoV-2 may never develop antibodies, particularly those who have had mild or asymptomatic illness. Of note, if the patient has been vaccinated earlier than 1-2 weeks prior to antibody testing, any positive SARS-CoV-2 IgG antibody result is likely due to vaccination. The specific duration and strength of immunity from SARS-CoV-2 IgG antibodies is highly variable between individuals and is dependent on a variety of factors, including infection vs. vaccination response, initial infection severity, the strength of the patient's own immune system, and the variants to which the patient has been exposed. ? Interpretation Result Comments:These interpretation comments are based upon all COVID-19 testing the patient has had at [facility], including molecular NAAT testing (more commonly known as PCR testing and Rapid ID Nowtesting) and antibody testing. It does not take into account any testing that a patient has had outs jax of the [facility] medical record. [facility]ORY SERVICESCOVID [id number]-WlD-7 Rapid ID NOW (no units) ? ? Date ? Value ? 11/23/2020 ? Not Detected ? [facility] [id number] 18:59:04COVID DMT InterpretationInterpretation/Recommendations:Molecular NAAT Tests for Active Infection with the SARS-CoV-2 Virus:The patient has currently tested negative for the SARS-CoV-2 virus that causes COVID-19 illness. This most likely indicates that the patient does not have an active infection with the SARS-CoV-2 virus. However, infection is not completely ruled out as the false negative rate for molecular NAAT testing using a nasopharyngeal sample can be up to 30%, mostly dependent on the timing of sample collection in relation to illness onset and any deficiencies in sampling techniques.If the patient has symptoms concerning for COVID-19 illness, a repeat NAAT test (PCR, Rapid ID Now, etc.) should be performed, at which time the SARS-CoV-2 virus if present may have reached adetectable viral load (usually peaking by the end of the first week of symptoms). Tests for IgM and/or IgG Antibodies to the SARS-CoV-2 Virus:Testing for IgM and IgG antibodies approximately 3 weeks after illness onset will likely indicate if the patient has produced antibodies to the SARS-CoV-2 virus. However, some patients may take longer to develop detectable antibodies, while others infected with SARS-CoV-2 may never develop antibodies, particularly those who have had mild or asymptomatic illness. Of note, if the patient has been vaccinated earlier than 1-2 weeks prior to antibody testing, any positive SARS-CoV-2 IgG antibody result is likely due to vaccination. The specific duration and strength of immunity from SARS-CoV-2 IgG antibodies is highly variable between individuals and is dependent on a variety of factors, including infection vs. vaccination response, initial infection severity, the strength of the patient's own immune system, and the variants to which the patient has been exposed. ? Interpretation Result Comments:These interpretation comments are based upon all COVID-19 testing the patient has had at [facility], including molecular NAAT testing (more commonly known as PCR testing and Rapid ID Nowtesting) and antibody testing. It does not take into account any testing that a patient has had outs jax of the [facility] medical record. [facility] SERVICESCOVID [id number]-OvL-9 Rapid ID NOW (no units) ? ? Date ? Value ? 11/23/2020 ? Not Detected ? [facility] GLUCOSE (AUTOMATED)2020-11-24 16:30:03* Test Item Value Reference Range Interpretation Comme nts POCT GLU (test code = 3697550544) 207 mg/dL 70-110 H Lab Interpretation (test cod e = 82182-9) Abnormal [facility] GLUCOSE (AUTOMATED)2020-11-24 16:30:03* Test Item Value Reference Range Interpretation Comme nts POCT GLU (test code = 1966634700) 207 mg/dL 70-110 H Lab Interpretation (test cod e = 26516-6) Abnormal [facility] GLUCOSE (AUTOMATED)2020-11-24 16:30:03* Test Item Value Reference Range Interpretation Comme nts POCT GLU (test code = 8354135351) 207 mg/dL 70-110 H Lab Interpretation (test cod e = 68057-7) Abnormal [facility] GLUCOSE (AUTOMATED)2020-11-24 16:30:03* Test Item Value Reference Range Interpretation Comme nts POCT GLU (test code = 5881916791) 207 mg/dL 70-110 H Lab Interpretation (test cod e = 89617-1) Abnormal [facility] GLUCOSE (AUTOMATED)2020-11-24 12:56:13* Test Item Value Reference Range Interpretation Comme nts POCT GLU (test code = 5119074130) 188 mg/dL 70-110 H Lab Interpretation (test cod e = 08298-7) Abnormal [facility] GLUCOSE (AUTOMATED)2020-11-24 12:56:13* Test Item Value Reference Range Interpretation Comme nts POCT GLU (test code = 5441224218) 188 mg/dL 70-110 H Lab Interpretation (test cod e = 37210-5) Abnormal [facility] GLUCOSE (AUTOMATED)2020-11-24 12:56:13* Test Item Value Reference Range Interpretation Comme nts POCT GLU (test code = 9893968127) 188 mg/dL 70-110 H Lab Interpretation (test cod e = 42144-9) Abnormal [facility] GLUCOSE (AUTOMATED)2020-11-24 12:56:13* Test Item Value Reference Range Interpretation Comme nts POCT GLU (test code = 1915993671) 188 mg/dL 70-110 H Lab Interpretation (test cod e = 03574-3) [facility]normal [facility] - Draw within 30 minutes prior to 4TH dose.2020-11-24 12:51:28* Test Item Value Reference Range Interpretation Comme nts VANCO TROUGH (test code = 6719844831) 24.1 ug/mL 10.0-20.0 H LENNOX (test code = LENNOX) Toxic Range: ?>20 ug/mL 15-20 ug/mL is recommended for severe infection or when Vancomycin KAROLINE is greater than or equal to 2. Lab Interpretation (test code = 99977-0) [facility]normal [facility] T[facility] - Draw within 30 minutes prior to 4TH dose.2020-11-24 12:51:28* Test Item Value Reference Range Interpretation Comme nts VANCO TROUGH (test code = 3863964248) 24.1 ug/mL 10.0-20.0 H LENNOX (test code = LENNOX) Toxic Range: ?>20 ug/mL 15-20 ug/mL is recommended for severe infection or when Vancomycin KAROLINE is greater than or equal to 2. Lab Interpretation (test code = 85078-5) [facility] Draw within 30 minutes prior to 4TH dose.2020-11-24 12:51:28* Test Item Value Reference Range Interpretation Comme nts VANCO TROUGH (test code = 2449626865) 24.1 ug/mL 10.0-20.0 H LENNOX (test code = LENNOX) Toxic Range: ?>20 ug/mL 15-20 ug/mL is recommended for severe infection or when Vancomycin KAROLINE is greater than or equal to 2. Lab Interpretation (test code = 95689-8) Abnormal [facility] Trough Level - Draw within 30 minutes prior to 4TH dose.2020-11-24 12:51:28* Test Item Value Reference Range Interpretation Comme nts VANCO TROUGH (test code = 1535280827) 24.1 ug/mL 10.0-20.0 H LENNOX (test code = LENNOX) Lab Interpretation (test cod e = 83651-5) Abnormal [facility]ressLIPID PANEL (37082)(TOTAL CHOLESTEROL, TRIGLYCERIDES, HDL)2020-11-24 12:46:46* Test Item Value Reference Range Interpretation Comme nts CHOL (test code = 6817464254) 138 mg/dL 120-200 HDL (test code = 3430537001) 35 mg/dL >40 L HDLC RATIO (test code = 1128921166) See_Comment [Automated [employer]] The system which generated this result transmitted reference range: <=5.0. The reference range was not used to interpret this result as normal/abnormal. TRIG (test code = 6501916814) 135 mg/dL 30-170 LDL CHOL (test code = 49687-6) 76 mg/dL See_Comment [Automated [employer]] The system which generated this result transmitted reference range: <=160. The reference range was not used to interpret this result as normal/abnormal. VLDL (test code = 7479566373) 27 mg/dL 5-60 Lab Interpretation (test code = 72026-8) Abnormal [facility]ress[facility]IP[facility] (27686)(TOTAL CHOLESTEROL, TRIGLYCERIDES, HDL)2020-11-24 12:46:46* Test Item Value Reference Range Interpretation Comme nts CHOL (test code = 5557812247) 138 mg/dL 120-200 HDL (test code = 5884495007) 35 mg/dL >40 L HDLC RATIO (test code = 1957924743) See_Comment [Automated [employer] [place]] The system which generated this result transmitted reference range: <=5.0. The reference range was not used to interpret this result as normal/abnormal. TRIG (test code = 9497886500) 135 mg/dL 30-170 LDL CHOL (test code = 91255-8) 76 mg/dL See_Comment [Automated messa ge] The system which generated this result transmitted reference range: <=160. The reference range was not used to interpret this result as normal/abnormal. VLDL (test code = 4350073551) 27 mg/dL 5-60 Lab Interpretation (test code = 97483-8) Abnormal [facility] (96172)(TOTAL CHOLESTEROL, TRIGLYCERIDES, HDL)2020-11-24 12:46:46* Test Item Value Reference Range Interpretation Comme nts CHOL (test code = 4718047470) 138 mg/dL 120-200 HDL (test code = 2857952970) 35 mg/dL >40 L HDLC RATIO (test code = 7539278536) See_Comment [Automated messa ge] The system which generated this result transmitted reference range: <=5.0. The reference range was not used to interpret this result as normal/abnormal. TRIG (test code = 6656471611) 135 mg/dL 30-170 LDL CHOL (test code = 99505-5) 76 mg/dL See_Comment [Automated messa ge] The system which generated this result transmitted reference range: <=160. The reference range was not used to interpret this result as normal/abnormal. VLDL (test code = 8056145655) 27 mg/dL 5-60 Lab Interpretation (test code = 52986-2) [facility][id number][facility]TOTAL CHOLESTEROL, TRIGLYCERIDES, HDL)2020-11-24 12:46:46* Test Item Value Reference Range Interpretation Comme nts CHOL (test code = 0341012220) 138 mg/dL 120-200 HDL (test code = 4769118748) 35 mg/dL >40 L HDLC RATIO (test code = 4348027699) See_Comment [Automated [employer]] The system which generated this result transmitted reference range: <=5.0. The reference range was not used to interpret this result as normal/abnormal. TRIG (test code = 1370161476) 135 mg/dL 30-170 LDL CHOL (test code = 47468-2) 76 mg/dL See_Comment [Automated messa ge] The system which generated this result transmitted reference range: <=160. The reference range was not used to interpret this result as normal/abnormal. VLDL (test code = 3905357351) 27 mg/dL 5-60 Lab Interpretation (test code = 42178-8) [facility]normal [facility] Hem[facility] (A1C)2020-11-24 11:40:31* Test Item Value Reference Range Interpretation Comme nts HGB A1C (test code = 4548-4) 9.4 % 4.0-5.7 H LENNOX (test code = LENNOX) Reference RangesNormal: <5.7%Prediabetes: 5.7 - 6.4%Diabetes: > 6.5% Lab Interpretation (test code = 80149-2) [facility]normal [facility] (A1C)2020-11-24 11:40:31* Test Item Value Reference Range Interpretation Comme nts HGB A1C (test code = 4548-4) 9.4 % 4.0-5.7 H LENNOX (test code = LENNOX) Reference RangesNormal: <5.7%Prediabetes: 5.7 - 6.4%Diabetes: > 6.5% Lab Interpretation (test code = 10221-5) [facility]normal [facility] Hem[facility] (A1C)2020-11-24 11:40:31* Test Item Value Reference Range Interpretation Comme nts HGB A1C (test code = 4548-4) 9.4 % 4.0-5.7 H LENNOX (test code = LENNOX) Reference RangesNormal: <5.7%Prediabetes: 5.7 - 6.4%Diabetes: > 6.5% Lab Interpretation (test code = 16803-3) Abnormal [facility] Hem[facility] (A1C)2020-11-24 11:40:31* Test Item Value Reference Range Interpretation Comme nts HGB A1C (test code = 4548-4) 9.4 % 4.0-5.7 H LENNOX (test code = LENNOX) Lab Interpretation (test cod e = 28847-7) Abnormal [facility] PELVIS W [id number] 03:15:591. ?Rim-enhancing fluid collection in the subcutaneous soft tissues of themedial right gluteal fold. Findings are consistent with a perirectalabscess.2. Cholelithiasis without evidence of acute cholecystitis RL: 135 END OF REPORT ORDERING PHYSICIAN:TAMERA LEIVA CLINICAL INFORMATION: ? Abdominal pain, acute, nonlocalized perirectal abscess COMPARISON: None Technique: ? CT of the abdomen and pelvis was performed after theadministration of IV contrast. No p.o. contrast was used. Multiplanarreformats were also obtained. This study was performed according to ALARAprinciple for radiation dose reduction. Findings: There is no evidence of obstructive uropathy. No suspicious renalparenchymal abnormalities are seen. Multiple stones are seen dependently inthe gallbladder. No acute pericholecystic inflammatory changes are seen.Liver, spleen, adrenal glands, and pancreas show no evidence of grossabnormalities. There is no bowel obstruction. There is no appendicitis. Nofree air or free fluid is seen in the abdomen or pelvis. No discretepathologically enlarged lymph nodes are seen in the abdomen or pelvis. There is a focal loculated rim-enhancing fluid collection measuring 3.2 x2.5 x 3.0 cm seen in the subcutaneous soft tissues of the right glutealfold. Some surrounding subcutaneous fat stranding as well as associatedskin thickening are seen at this level. Postsurgical changes of right hip arthroplasty are seen. No suspiciousfocal osseous lesions are seen. The lung bases remain clear. [facility], Radiant Results Inft User - 11/23/2020 10:17 PM CDT ORDERING PHYSICIAN:TAMERA COSME CLINICAL INFORMATION: Abdominal pain, acute, nonlocalized perirectal abscess COMPARISON: NoneTechnique: CT of the abdomen and pelvis was performed after theadministration of IV contrast. Nop.o. contrast was used. Multiplanarreformats were also obtained. This study was performed accordingto ALARAprinciple for radiation dose reduction.Findings:There is no evidence of obstructive uropathy. No suspicious renalparenchymal abnormalities are seen. Multiple stones are seen dependently inthegallbladder. No acute pericholecystic inflammatory changes are seen.Liver, spleen, adrenal glands, and pancreas show no evidence of grossabnormalities. There is no bowel obstruction. There is no appendicitis. Nofree air or free fluid is seen in the abdomen or pelvis. No discretepathologically enlarged lymph nodes are seen in the abdomen or pelvis.There is a focal loculated rim-enhancing fluid collection measuring 3.2 x2.5 x 3.0 cm seen in the subcutaneous soft tissues of the right glutealfold. S ome surrounding subcutaneous fat stranding as well as associatedskin thickening are seen at this level.Postsurgical changes of right hip arthroplasty are seen. No suspiciousfocal osseous lesions are seen. The lung bases remain clear.IMPRESSION1. Rim-enhancing fluid collection in the subcutaneous soft tissues of themedial right gluteal fold. Findings are consistent with a perirectalabscess.2. Cholelithiasis without evidence of acute cholecystitisRL: 135END OF [facility]PORT [facility] PEL[facility] W [id number] 03:15:591. ?Rim-enhancing fluid collection in the subcutaneous soft tissues of themedial right gluteal fold. Findings are consistent with a perirectalabscess.2. Cholelithiasis without evidence of acute cholecystitis RL: 135 END OF REPORT ORDERING PHYSICIAN:TAMERA LEIVA CLINICAL INFORMATION: ? Abdominal pain, acute, nonlocalized perirectal abscess COMPARISON: None Technique: ? CT of the abdomen and pelvis was performed after theadministration of IV contrast. No p.o. contrast was used. Multiplanarreformats were also obtained. This study was performed according to ALARAprinciple for radiation dose reduction. Findings: There is no evidence of obstructive uropathy. No suspicious renalparenchymal abnormalities are seen. Multiple stones are seen dependently inthe gallbladder. No acute pericholecystic inflammatory changes are seen.Liver, spleen, adrenal glands, and pancreas show no evidence of grossabnormalities. There is no bowel obstruction. There is no appendicitis. Nofree air or free fluid is seen in the abdomen or pelvis. No discretepathologically enlarged lymph nodes are seen in the abdomen or pelvis. There is a focal loculated rim-enhancing fluid collection measuring 3.2 x2.5 x 3.0 cm seen in the subcutaneous soft tissues of the right glutealfold. Some surrounding subcutaneous fat stranding as well as associatedskin thickening are seen at this level. Postsurgical changes of right hip arthroplasty are seen. No suspiciousfocal osseous lesions are seen. The lung bases remain clear. [facility], Radiant Results Inft User - 11/23/2020 10:17 PM CDT ORDERING PHYSICIAN:TAMERA COSME CLINICAL INFORMATION: Abdominal pain, acute, nonlocalized perirectal abscess COMPARISON:NoneTechnique: CT of the abdomen and pelvis was performed after theadministration of IV contrast. No p.o. contrast was used. Multiplanarreformats were also obtained. This study was performed according to ALARAprinciple for radiation dose reduction.Findings:There is no evidence of obstructive uropathy. No suspicious renalparenchymal abnormalities are seen. Multiple stones are seen dependently inthe gallbladder. No acute pericholecystic inflammatory changes are seen.Liver, spleen, adrenal glands,and pancreas show no evidence of grossabnormalities. There is no bowel obstruction. There is no appendicitis. Nofree air or free fluid is seen in the abdomen or pelvis. No discretepathologically enlarged lymph nodes are seen in the abdomen or pelvis.There is a focal loculated rim-enhancing fluid collection measuring 3.2 x2.5 x 3.0 cm seen in the subcutaneous soft tissues of the right glutealfold.Some surrounding subcutaneous fat stranding as well as associatedskin thickening are seen at this level.Postsurgical changes of right hip arthroplasty are seen. No suspiciousfocal osseous lesions areseen. The lung bases remain clear.IMPRESSION1. Rim-enhancing fluid collection in the subcutaneous soft tissues of themedial right gluteal fold. Findings are consistent with a perirectalabscess.2. Cholelithiasis without evidence of acute cholecystitisRL: 135END [facility] 2020-11-24 03:15:591. ?Rim-enhancing fluid collection in the subcutaneous soft tissues of themedial right gluteal fold. Findings are consistent with a perirectalabscess.2. Cholelithiasis without evidence of acute cholecystitis RL: 135 END OF REPORT ORDERING PHYSICIAN:TAMERA LEIVA CLINICAL INFORMATION: ? Abdominal pain, acute, nonlocalized perirectal abscess COMPARISON: None Technique: ? CT of the abdomen and pelvis was performed after theadministration of IV contrast. No p.o. contrast was used. Multiplanarreformats were also obtained. This study was performed according to ALARAprinciple for radiation dose reduction. Findings: There is no evidence of obstructive uropathy. No suspicious renalparenchymal abnormalities are seen. Multiple stones are seen dependently inthe gallbladder. No acute pericholecystic inflammatory changes are seen.Liver, spleen, adrenal glands, and pancreas show no evidence of grossabnormalities. There is no bowel obstruction. There is no appendicitis. Nofree air or free fluid is seen in the abdomen or pelvis. No discretepathologically enlarged lymph nodes are seen in the abdomen or pelvis. There is a focal loculated rim-enhancing fluid collection measuring 3.2 x2.5 x 3.0 cm seen in the subcutaneous soft tissues of the right glutealfold. Some surrounding subcutaneous fat stranding as well as associatedskin thickening are seen at this level. Postsurgical changes of right hip arthroplasty are seen. No suspiciousfocal osseous lesions are seen. The lung bases remain clear. [facility], Radiant Results Inft User - 11/23/2020 10:17 PM CDT ORDERING PHYSICIAN:TAMERA COSME CLINICAL INFORMATION: Abdominal pain, acute, nonlocalized perirectal abscess COMPARISON: NoneTechnique: CT of the abdomen and pelvis was performed after theadministration of IV contrast. Nop.o. contrast was used. Multiplanarreformats were also obtained. This study was performed accordingto ALARAprinciple for radiation dose reduction.Findings:There is no evidence of obstructive uropathy. No suspicious renalparenchymal abnormalities are seen. Multiple stones are seen dependently inthegallbladder. No acute pericholecystic inflammatory changes are seen.Liver, spleen, adrenal glands, and pancreas show no evidence of grossabnormalities. There is no bowel obstruction. There is no appendicitis. Nofree air or free fluid is seen in the abdomen or pelvis. No discretepathologically enlarged lymph nodes are seen in the abdomen or pelvis.There is a focal loculated rim-enhancing fluid collection measuring 3.2 x2.5 x 3.0 cm seen in the subcutaneous soft tissues of the right glutealfold. S ome surrounding subcutaneous fat stranding as well as associatedskin thickening are seen at this level.Postsurgical changes of right hip arthroplasty are seen. No suspiciousfocal osseous lesions are seen. The lung bases remain clear.IMPRESSION1. Rim-enhancing fluid collection in the subcutaneous soft tissues of themedial right gluteal fold. Findings are consistent with a perirectalabscess.2. Cholelithiasis without evidence of acute cholecystitisRL: 135END OF [facility]PORT [facility]EL[facility] W [id number] 03:15:591. ?Rim-enhancing fluid collection in the subcutaneous soft tissues of themedial right gluteal fold. Findings are consistent with a perirectalabscess.2. Cholelithiasis without evidence of acute cholecystitis RL: 135 END OF REPORT ORDERING PHYSICIAN:TAMERA LEIVA CLINICAL INFORMATION: ? Abdominal pain, acute, nonlocalized perirectal abscess COMPARISON: None Technique: ? CT of the abdomen and pelvis was performed after theadministration of IV contrast. No p.o. contrast was used. Multiplanarreformats were also obtained. This study was performed according to ALARAprinciple for radiation dose reduction. Findings: There is no evidence of obstructive uropathy. No suspicious renalparenchymal abnormalities are seen. Multiple stones are seen dependently inthe gallbladder. No acute pericholecystic inflammatory changes are seen.Liver, spleen, adrenal glands, and pancreas show no evidence of grossabnormalities. There is no bowel obstruction. There is no appendicitis. Nofree air or free fluid is seen in the abdomen or pelvis. No discretepathologically enlarged lymph nodes are seen in the abdomen or pelvis. There is a focal loculated rim-enhancing fluid collection measuring 3.2 x2.5 x 3.0 cm seen in the subcutaneous soft tissues of the right glutealfold. Some surrounding subcutaneous fat stranding as well as associatedskin thickening are seen at this level. Postsurgical changes of right hip arthroplasty are seen. No suspiciousfocal osseous lesions are seen. The lung bases remain clear. [facility], Radiant Results Inft User - 11/23/2020 10:17 PM CDT ORDERING PHYSICIAN:TAMERA COSME CLINICAL INFORMATION: Abdominal pain, acute, nonlocalized perirectal abscess COMPARISON: NoneTechnique: CT of the abdomen and pelvis was performed after theadministration of IV contrast. Nop.o. contrast was used. Multiplanarreformats were also obtained. This study was performed accordingto ALARAprinciple for radiation dose reduction.Findings:There is no evidence of obstructive uropathy. No suspicious renalparenchymal abnormalities are seen. Multiple stones are seen dependently inthegallbladder. No acute pericholecystic inflammatory changes are seen.Liver, spleen, adrenal glands, and pancreas show no evidence of grossabnormalities. There is no bowel obstruction. There is no appendicitis. Nofree air or free fluid is seen in the abdomen or pelvis. No discretepathologically enlarged lymph nodes are seen in the abdomen or pelvis.There is a focal loculated rim-enhancing fluid collection measuring 3.2 x2.5 x 3.0 cm seen in the subcutaneous soft tissues of the right glutealfold. S ome surrounding subcutaneous fat stranding as well as associatedskin thickening are seen at this level.Postsurgical changes of right hip arthroplasty are seen. No suspiciousfocal osseous lesions are seen. The lung bases remain clear.IMPRESSION1. Rim-enhancing fluid collection in the subcutaneous soft tissues of themedial right gluteal fold. Findings are consistent with a perirectalabscess.2. Cholelithiasis without evidence of acute cholecystitisRL: 135END OF REPORT [facility]. METABOLIC PANEL ([id number])2020-11-24 01:29:08* Test Item Value Reference Range Interpretation Comme nts NA (test code = 6646711317) 135 mmol/L 135-145 K (test code = 6289853629) 3.9 mmol/L 3.5-5.0 CL (test code = 3409321757) 100 mmol/L 98-108 CO2 TOTAL (test code = 4477909546) 27 mmol/L 23-31 AGAP (test code = 1854086457) 2-16 BUN (test code = 1566983225) 14 mg/dL 7-23 GLUCOSE (test code = 2583704186) 229 mg/dL 70-110 H CREATININE (test code = 7983686597) 0.64 mg/dL 0.60-1.25 TOTAL BILI (test code = 5411299903) 0.5 mg/dL 0.1-1.1 CALCIUM (test code = 1212283061) 9.3 mg/dL 8.6-10.6 T PROTEIN (test code = 1431108987) 7.6 g/dL 6.3-8.2 ALBUMIN (test code = 3179914720) 4.3 g/dL 3.5-5.0 ALK PHOS (test code = 5075925758) 85 U/L 34-122 ALTv (test code = 1742-6) 14 U/L 5-50 AST(SGOT) (test code = 8413953438) 26 U/L 13-40 eGFR (test code = 7601236834) mL/min/1.73m2 LENNOX (test code = LENNOX) Association of Glomerular Filtration Rate (GFR) and Staging of Kidney Disease* + --+ --+ ------+| GFR (mL/min/1.73 m2) ?| With Kidney Damage ?| ?Without Kidney Damage+ --------+ --------+ +| ?>90 ?| ?Stage one ?| ? Normal ?+ ---+ ---+ -------+| ?60-89 ?| ?Stage two ?| ? Decreased GFR ? + --+ --+ ------+| ?30-59 ?| ?Stage three ?| ? Stage three ? + --+ --+ ------+| ?15-29 ?| ?Stage four ? | ? Stage four ?+ ---+ ---+ -------+| ?<15 (or dialysis) ? ?| ?Stage five ? | ? Stage five ?+ ---+ ---+ -------+ *Each stage assumes the associated GFR level has been in effect for at least three months. ?Stages 1 to 5, with or without kidney disease, indicate chronic kidney disease. Notes: Determination of stages one and two (with eGFR >59mL/min/1.73 m2) requires estimation of kidney damage for at least three months as defined by structural or functional abnormalities of the kidney, manifested by either:Pathological abnormalities or Markers of kidney damage (including abnormalities in the composition of the blood or urine or abnormalities in imaging tests). Lab Interpretation (test code = 96194-5) Abnormal [facility]. METABOLIC PANEL ([id number])2020-11-24 01:29:08* Test Item Value Reference Range Interpretation Comme nts NA (test code = 9436835606) 135 mmol/L 135-145 K (test code = 2914554982) 3.9 mmol/L 3.5-5.0 CL (test code = 9943274933) 100 mmol/L 98-108 CO2 TOTAL (test code = 1576335986) 27 mmol/L 23-31 AGAP (test code = 2700730593) 2-16 BUN (test code = 7775780618) 14 mg/dL 7-23 GLUCOSE (test code = 0970482941) 229 mg/dL 70-110 H CREATININE (test code = 1582169513) 0.64 mg/dL 0.60-1.25 TOTAL BILI (test code = 6749058855) 0.5 mg/dL 0.1-1.1 CALCIUM (test code = 2095298458) 9.3 mg/dL 8.6-10.6 T PROTEIN (test code = 5103018849) 7.6 g/dL 6.3-8.2 ALBUMIN (test code = 8102261474) 4.3 g/dL 3.5-5.0 ALK PHOS (test code = 7011335542) 85 U/L 34-122 ALTv (test code = 1742-6) 14 U/L 5-50 AST(SGOT) (test code = 9244303920) 26 U/L 13-40 eGFR (test code = 9273329683) mL/min/1.73m2 LENNOX (test code = LENNOX) Association of Glomerular Filtration Rate (GFR) and Staging of Kidney Disease* + --+ --+ ------+| GFR (mL/min/1.73 m2) ?| With Kidney Damage ?| ?Without Kidney Damage+ --------+ --------+ +| ?>90 ?| ?Stage one ?| ? Normal ?+ ---+ ---+ -------+| ?60-89 ?| ?Stage two ?| ? Decreased GFR ? + --+ --+ ------+| ?30-59 ?| ?Stage three ?| ? Stage three ? + --+ --+ ------+| ?15-29 ?| ?Stage four ? | ? Stage four ?+ ---+ ---+ -------+| ?<15 (or dialysis) ? ?| ?Stage five ? | ? Stage five ?+ ---+ ---+ -------+ *Each stage assumes the associated GFR level has been in effect for at least three months. ?Stages 1 to 5, with or without kidney disease, indicate chronic kidney disease. Notes: Determination of stages one and two (with eGFR >59mL/min/1.73 m2) requires estimation of kidney damage for at least three months as defined by structural or functional abnormalities of the kidney, manifested by either:Pathological abnormalities or Markers of kidney damage (including abnormalities in the composition of the blood or urine or abnormalities in imaging tests). Lab Interpretation (test code = 04575-2) Abnormal [facility]. METABOLIC PANEL ([id number])2020-11-24 01:29:08* Test Item Value Reference Range Interpretation Comme nts NA (test code = 6536684362) 135 mmol/L 135-145 K (test code = 4876837575) 3.9 mmol/L 3.5-5.0 CL (test code = 2528023781) 100 mmol/L 98-108 CO2 TOTAL (test code = 0191092657) 27 mmol/L 23-31 AGAP (test code = 6660881147) 2-16 BUN (test code = 0860029147) 14 mg/dL 7-23 GLUCOSE (test code = 8539662707) 229 mg/dL 70-110 H CREATININE (test code = 6460961295) 0.64 mg/dL 0.60-1.25 TOTAL BILI (test code = 3513241428) 0.5 mg/dL 0.1-1.1 CALCIUM (test code = 6861171576) 9.3 mg/dL 8.6-10.6 T PROTEIN (test code = 5029659365) 7.6 g/dL 6.3-8.2 ALBUMIN (test code = 1874563239) 4.3 g/dL 3.5-5.0 ALK PHOS (test code = 0739929386) 85 U/L 34-122 ALTv (test code = 1742-6) 14 U/L 5-50 AST(SGOT) (test code = 6591438915) 26 U/L 13-40 eGFR (test code = 2268080191) mL/min/1.73m2 LENNOX (test code = LENNOX) Association of Glomerular Filtration Rate (GFR) and Staging of Kidney Disease* + --+ --+ ------+| GFR (mL/min/1.73 m2) ?| With Kidney Damage ?| ?Without Kidney Damage+ --------+ --------+ +| ?>90 ?| ?Stage one ?| ? Normal ?+ ---+ ---+ -------+| ?60-89 ?| ?Stage two ?| ? Decreased GFR ? + --+ --+ ------+| ?30-59 ?| ?Stage three ?| ? Stage three ? + --+ --+ ------+| ?15-29 ?| ?Stage four ? | ? Stage four ?+ ---+ ---+ -------+| ?<15 (or dialysis) ? ?| ?Stage five ? | ? Stage five ?+ ---+ ---+ -------+ *Each stage assumes the associated GFR level has been in effect for at least three months. ?Stages 1 to 5, with or without kidney disease, indicate chronic kidney disease. Notes: Determination of stages one and two (with eGFR >59mL/min/1.73 m2) requires estimation of kidney damage for at least three months as defined by structural or functional abnormalities of the kidney, manifested by either:Pathological abnormalities or Markers of kidney damage (including abnormalities in the composition of the blood or urine or abnormalities in imaging tests). Lab Interpretation (test code = 84030-5) Abnormal [facility]. METABOLIC PANEL ([id number])2020-11-24 01:29:08* Test Item Value Reference Range Interpretation Comme nts NA (test code = 6750684754) 135 mmol/L 135-145 K (test code = 3675446943) 3.9 mmol/L 3.5-5.0 CL (test code = 9672089433) 100 mmol/L 98-108 CO2 TOTAL (test code = 9761057771) 27 mmol/L 23-31 AGAP (test code = 6106786995) 2-16 BUN (test code = 4353397327) 14 mg/dL 7-23 GLUCOSE (test code = 5659956561) 229 mg/dL 70-110 H CREATININE (test code = 6973327383) 0.64 mg/dL 0.60-1.25 TOTAL BILI (test code = 9154589644) 0.5 mg/dL 0.1-1.1 CALCIUM (test code = 1274923209) 9.3 mg/dL 8.6-10.6 T PROTEIN (test code = 3998296472) 7.6 g/dL 6.3-8.2 ALBUMIN (test code = 6673453303) 4.3 g/dL 3.5-5.0 ALK PHOS (test code = 2234226473) 85 U/L 34-122 ALTv (test code = 1742-6) 14 U/L 5-50 AST(SGOT) (test code = 3626371272) 26 U/L 13-40 eGFR (test code = 5627517008) mL/min/1.73m2 LENNOX (test code = LENNOX) Lab Interpretation (test cod e = 09954-1) [facility] NOW RAPID TESTING[facility]2020-11-24 01:01:27* Test Item Value Reference Range Interpretation Comme nts SARS-CoV-2 Rapid ID NOW (test code = 21998-4) Not Detected Not Detected LENNOX (test code = LENNOX) ID NOW COVID-19 As say is an isothermal nucleic acid amplification test intended for the qualitative detection of nucleic acid from SARS-CoV-2 viral RNA in nasopharyngeal (RESPIRATORY CARE PRACTITIONER) specimens. It is used under Emergency Use Authorization (EUA) by FDA. The limit of detection (LOD) of the assay is 125 Genome Equivalents/mL. A positive result is indicative of the presence of SARS-CoV-2 RNA. ?Clinical correlation with patient history and other diagnostic information is necessary to determine patient infection status. A negative (Not Detected) result does not preclude SARS-CoV-2 infection. In patients with clinical symptoms and other tests that are consistent with SARS-CoV-2 infection, negative results should be treated as presumptive negative and a new specimen should be tested with alternative PCR molecular test. Invalid: Please collect a new specimen for repeat patient testing if clinically indicated. Lab Interpretation (test code = 94930-7) [place] [id number] (ID NOW RAPID TESTING)2020-11-24 01:01:27* Test Item Value Reference Range Interpretation Comme nts SARS-CoV-2 Rapid ID NOW (test code = 68703-1) Not Detected Not Detected LENNOX (test code = LENNOX) ID NOW COVID-19 As say is an isothermal nucleic acid amplification test intended for the qualitative detection of nucleic acid from SARS-CoV-2 viral RNA in nasopharyngeal (RESPIRATORY CARE PRACTITIONER) specimens. It is used under Emergency Use Authorization (EUA) by FDA. The limit of detection (LOD) of the assay is 125 Genome Equivalents/mL. A positive result is indicative of the presence of SARS-CoV-2 RNA. ?Clinical correlation with patient history and other diagnostic information is necessary to determine patient infection status. A negative (Not Detected) result does not preclude SARS-CoV-2 infection. In patients with clinical symptoms and other tests that are consistent with SARS-CoV-2 infection, negative results should be treated as presumptive negative and a new specimen should be tested with alternative PCR molecular test. Invalid: Please collect a new specimen for repeat patient testing if clinically indicated. Lab Interpretation (test code = 73858-0) [place] [id number] (ID NOW RAPID TESTING)2020-11-24 01:01:27* Test Item Value Reference Range Interpretation Comme nts SARS-CoV-2 Rapid ID NOW (test code = 17296-5) Not Detected Not Detected LENNOX (test code = LENNOX) ID NOW COVID-19 As say is an isothermal nucleic acid amplification test intended for the qualitative detection of nucleic acid from SARS-CoV-2 viral RNA in nasopharyngeal (RESPIRATORY CARE PRACTITIONER) specimens. It is used under Emergency Use Authorization (EUA) by FDA. The limit of detection (LOD) of the assay is 125 Genome Equivalents/mL. A positive result is indicative of the presence of SARS-CoV-2 RNA. ?Clinical correlation with patient history and other diagnostic information is necessary to determine patient infection status. A negative (Not Detected) result does not preclude SARS-CoV-2 infection. In patients with clinical symptoms and other tests that are consistent with SARS-CoV-2 infection, negative results should be treated as presumptive negative and a new specimen should be tested with alternative PCR molecular test. Invalid: Please collect a new specimen for repeat patient testing if clinically indicated. Lab Interpretation (test code = 70763-0) [facility]2020-11-24 01:01:27* Test Item Value Reference Range Interpretation Comme nts SARS-CoV-2 Rapid ID NOW (solange t code = 60908-7) Not Detected Not Detected LENNOX (test code = LENNOX) Lab Interpretation (test cod e = 18573-5) Normal [facility] WITH [id number] 00:38:21* Test Item Value Reference Range Interpretation Comme nts WBC (test code = 6690-2) See_Comment [Automated [employer]] The system which generated this result transmitted reference range: 4.20 - 10.70 10*3/?L. The reference range was not used to interpret this result as normal/abnormal. RBC (test code = 789-8) See_Comment [Automated [employer]] The system which generated this result transmitted reference range: 4.26 - 5.52 10*6/?L. The reference range was not used to interpret this result as normal/abnormal. HGB (test code = 718-7) 15.0 g/dL 12.2-16.4 HCT (test code = 4544-3) 45.3 % 38.4-49.3 MCV (test code = 787-2) 88.1 fL 81.7-95.6 MCH (test code = 785-6) 29.2 pg 26.1-32.7 MCHC (test code = 786-4) 33.1 g/dL 31.2-35.0 RDW-SD (test code = 57746-7) 40.3 fL 38.5-51.6 RDW-CV (test code = 788-0) 12.3 % 12.1-15.4 PLT (test code = 777-3) See_Comment [Autom[employer]] The system which generated this result transmitted reference range: 150 - 328 10*3/?L. The reference range was not used to interpret this result as normal/abnormal. MPV (test code = 61282-5) 10.1 fL 9.8-13.0 NRBC/100 WBC (test code = 5150774287) See_Comment [Automated me ssage] The system which generated this result transmitted reference range: 0.0 - 10.0 /100 WBCs. The reference range was not used to interpret this result as normal/abnormal. NRBC x10^3 (test code = 5562121834) <0.01 See_Comment [Automated me ssage] The system which generated this result transmitted reference range: 10*3/?L. The reference range was not used to interpret this result as normal/abnormal. GRAN MAT (NEUT) % (test code = 770-8) 68.3 % IMM GRAN % (test code = 3505568841) 0.30 % LYMPH % (test code = 736-9) 21.6 % MONO % (test code = 5905-5) 7.4 % EOS % (test code = 713-8) 1.7 % BASO % (test code = 706-2) 0.7 % GRAN MAT x10^3(ANC) (test code = 6675048470) 6.12 10*3/uL 1.99-6.95 IMM GRAN x10^3 (test code = 8327991132) 0.03 10*3/uL 0.00-0.06 LYMPH x10^3 (test code = 731-0) 1.93 10*3/uL 1.09-3.23 MONO x10^3 (test code = 742-7) 0.66 10*3/uL 0.36-1.02 EOS x10^3 (test code = 711-2) 0.15 10*3/uL 0.06-0.53 BASO x10^3 (test code = 704-7) 0.06 10*3/uL 0.01-0.09 [facility] WITH [id number] 00:38:21* Test Item Value Reference Range Interpretation Comme nts WBC (test code = 6690-2) See_Comment [Automated messa ge] The system which generated this result transmitted reference range: 4.20 - 10.70 10*3/?L. The reference range was not used to interpret this result as normal/abnormal. RBC (test code = 789-8) See_Comment [Autom[employer] [place]] The system which generated this result transmitted reference range: 4.26 - 5.52 10*6/?L. The reference range was not used to interpret this result as normal/abnormal. HGB (test code = 718-7) 15.0 g/dL 12.2-16.4 HCT (test code = 4544-3) 45.3 % 38.4-49.3 MCV (test code = 787-2) 88.1 fL 81.7-95.6 MCH (test code = 785-6) 29.2 pg 26.1-32.7 MCHC (test code = 786-4) 33.1 g/dL 31.2-35.0 RDW-SD (test code = 33193-1) 40.3 fL 38.5-51.6 RDW-CV (test code = 788-0) 12.3 % 12.1-15.4 PLT (test code = 777-3) See_Comment [[employer] [place]] The system which generated this result transmitted reference range: 150 - 328 10*3/?L. The reference range was not used to interpret this result as normal/abnormal. MPV (test code = 03446-7) 10.1 fL 9.8-13.0 NRBC/100 WBC (test code = 4079996864) See_Comment [Automated [employer] ssage] The system which generated this result transmitted reference range: 0.0 - 10.0 /100 WBCs. The reference range was not used to interpret this result as normal/abnormal. NRBC x10^3 (test code = 3340716731) <0.01 See_Comment [Automated [employer] ssage] The system which generated this result transmitted reference range: 10*3/?L. The reference range was not used to interpret this result as normal/abnormal. GRAN MAT (NEUT) % (test code = 770-8) 68.3 % IMM GRAN % (test code = 4489421886) 0.30 % LYMPH % (test code = 736-9) 21.6 % MONO % (test code = 5905-5) 7.4 % EOS % (test code = 713-8) 1.7 % BASO % (test code = 706-2) 0.7 % GRAN MAT x10^3(ANC) (test code = 3152580256) 6.12 10*3/uL 1.99-6.95 IMM GRAN x10^3 (test code = 7531510191) 0.03 10*3/uL 0.00-0.06 LYMPH x10^3 (test code = 731-0) 1.93 10*3/uL 1.09-3.23 MONO x10^3 (test code = 742-7) 0.66 10*3/uL 0.36-1.02 EOS x10^3 (test code = 711-2) 0.15 10*3/uL 0.06-0.53 BASO x10^3 (test code = 704-7) 0.06 10*3/uL 0.01-0.09 [facility] WITH [id number] 00:38:21* Test Item Value Reference Range Interpretation Comme nts WBC (test code = 6690-2) See_Comment [[employer]] The system which generated this result transmitted reference range: 4.20 - 10.70 10*3/?L. The reference range was not used to interpret this result as normal/abnormal. RBC (test code = 789-8) See_Comment [[employer]] The system which generated this result transmitted reference range: 4.26 - 5.52 10*6/?L. The reference range was not used to interpret this result as normal/abnormal. HGB (test code = 718-7) 15.0 g/dL 12.2-16.4 HCT (test code = 4544-3) 45.3 % 38.4-49.3 MCV (test code = 787-2) 88.1 fL 81.7-95.6 MCH (test code = 785-6) 29.2 pg 26.1-32.7 MCHC (test code = 786-4) 33.1 g/dL 31.2-35.0 RDW-SD (test code = 65196-7) 40.3 fL 38.5-51.6 RDW-CV (test code = 788-0) 12.3 % 12.1-15.4 PLT (test code = 777-3) See_Comment [Automated messa ge] The system which generated this result transmitted reference range: 150 - 328 10*3/?L. The reference range was not used to interpret this result as normal/abnormal. MPV (test code = 59773-5) 10.1 fL 9.8-13.0 NRBC/100 WBC (test code = 4386240948) See_Comment [Automated me ssage] The system which generated this result transmitted reference range: 0.0 - 10.0 /100 WBCs. The reference range was not used to interpret this result as normal/abnormal. NRBC x10^3 (test code = 1965454184) <0.01 See_Comment [Automated me ssage] The system which generated this result transmitted reference range: 10*3/?L. The reference range was not used to interpret this result as normal/abnormal. GRAN MAT (NEUT) % (test code = 770-8) 68.3 % IMM GRAN % (test code = 7732922531) 0.30 % LYMPH % (test code = 736-9) 21.6 % MONO % (test code = 5905-5) 7.4 % EOS % (test code = 713-8) 1.7 % BASO % (test code = 706-2) 0.7 % GRAN MAT x10^3(ANC) (test code = 7990682661) 6.12 10*3/uL 1.99-6.95 IMM GRAN x10^3 (test code = 7940646796) 0.03 10*3/uL 0.00-0.06 LYMPH x10^3 (test code = 731-0) 1.93 10*3/uL 1.09-3.23 MONO x10^3 (test code = 742-7) 0.66 10*3/uL 0.36-1.02 EOS x10^3 (test code = 711-2) 0.15 10*3/uL 0.06-0.53 BASO x10^3 (test code = 704-7) 0.06 10*3/uL 0.01-0.09 [facility] WITH [id number] 00:38:21* Test Item Value Reference Range Interpretation Comme nts WBC (test code = 6690-2) See_Comment [[employer]] The system which generated this result transmitted reference range: 4.20 - 10.70 10*3/?L. The reference range was not used to interpret this result as normal/abnormal. RBC (test code = 789-8) See_Comment [[employer]] The system which generated this result transmitted reference range: 4.26 - 5.52 10*6/?L. The reference range was not used to interpret this result as normal/abnormal. HGB (test code = 718-7) 15.0 g/dL 12.2-16.4 HCT (test code = 4544-3) 45.3 % 38.4-49.3 MCV (test code = 787-2) 88.1 fL 81.7-95.6 MCH (test code = 785-6) 29.2 pg 26.1-32.7 MCHC (test code = 786-4) 33.1 g/dL 31.2-35.0 RDW-SD (test code = 80729-0) 40.3 fL 38.5-51.6 RDW-CV (test code = 788-0) 12.3 % 12.1-15.4 PLT (test code = 777-3) See_Comment [[employer]] The system which generated this result transmitted reference range: 150 - 328 10*3/?L. The reference range was not used to interpret this result as normal/abnormal. MPV (test code = 07208-5) 10.1 fL 9.8-13.0 NRBC/100 WBC (test code = 6407864933) See_Comment [Automated [employer] ss[employer]] The system which generated this result transmitted reference range: 0.0 - 10.0 /100 WBCs. The reference range was not used to interpret this result as normal/abnormal. NRBC x10^3 (test code = 1428150098) <0.01 See_Comment [Automated me ssage] The system which generated this result transmitted reference range: 10*3/?L. The reference range was not used to interpret this result as normal/abnormal. GRAN MAT (NEUT) % (test code = 770-8) 68.3 % IMM GRAN % (test code = 1514328109) 0.30 % LYMPH % (test code = 736-9) 21.6 % MONO % (test code = 5905-5) 7.4 % EOS % (test code = 713-8) 1.7 % BASO % (test code = 706-2) 0.7 % GRAN MAT x10^3(ANC) (test code = 3604639728) 6.12 10*3/uL 1.99-6.95 IMM GRAN x10^3 (test code = 4804996706) 0.03 10*3/uL 0.00-0.06 LYMPH x10^3 (test code = 731-0) 1.93 10*3/uL 1.09-3.23 MONO x10^3 (test code = 742-7) 0.66 10*3/uL 0.36-1.02 EOS x10^3 (test code = 711-2) 0.15 10*3/uL 0.06-0.53 BASO x10^3 (test code = 704-7) 0.06 10*3/uL 0.01-0.09 [facility]"
[2024-03-03 13:09] LABS: Absolute Lymphocytes (CBC) 0.2 K/uL (0.7-4.9); Absolute Monocytes 0.6 K/uL (0.1-1.3); Absolute Neutrophil 6.7 K/uL (1.8-8.0); Basophils % 0.3 % (0-1.3); Hematocrit 42.2 % (39.6-49.0); MCH 29.3 pg (27.0-35.0); MCHC 33.2 g/dL (32.0-36.0); MCV 88.4 fL (80-100); MPV 8.6 fL (7.6-11.3); Monocytes % 8.2 % (3.3-12.3); Neutrophils % 88.5 % (41.7-73.7); Platelets 137 thou/uL (152-406); RBC Red Blood Cell Count 4.77 M/uL (4.33-5.43)
[2024-03-03 13:10] LABS: PT Prothrombin Time 12.6 SECONDS (9.4-12.5); Protime INR 1.13
[2024-03-03 13:28] LABS: Albumin 3.5 g/dL (3.4-5.0); Albumin/Globulin Ratio 0.9 (1.1-1.8); Anion Gap 10.8 mEq/L (5.0-15.0); Bilirubin Direct 0.2 mg/dL (0-0.2); Bilirubin Indirect, Calculated 0.5 mg/dL (0.2-0.8); Bilirubin Total 0.7 mg/dL (0.2-1.0); Globulin 3.7 g/dL (2.3-3.5); Magnesium 1.9 mg/dL (1.6-2.4); Potassium 3.8 mEq/L (3.5-5.1); Protein, Total 7.2 g/dL (6.4-8.2)
[2024-03-03 13:37] LABS: Troponin High Sensitivity 179.8 pg/mL (<58.9)
[2024-03-03] MEDS ORDERED: NITROGLYCERIN 0.4 MG/TAB SL ONE (13:43)
[2024-03-03 13:44] LABS: Blood Morphology Comment NOT SEEN (NOT SEEN); Platelet Estimate ADEQ; White Blood Cell Scan OK (OK)
[2024-03-03] MEDS ORDERED: FUROSEMIDE 40 MG/4 ML VIAL ONE (13:48)
--- NOTE | 2024-03-03 13:49 | RAD REPORT ---
EXAM: Chest Single View HISTORY: DYSPNEA COMPARISON: 09/26/2021 FINDINGS: LUNGS/PLEURA: Hazy opacities bilaterally with prominence of the interstitium MEDIASTINUM: The mediastinal silhouette is within normal limits. CARDIAC: Cardiomegaly. UPPER ABDOMEN: No significant abnormality. BONES: No acute fracture. LINES/TUBES/OTHER: N/A IMPRESSION: Pulmonary edema.
[2024-03-03 13:55] LABS: SARS-CoV-2 Antigen CONTROL BLUE LINE VIS/BG OK; SARS-CoV-2 Antigen Rapid Res Negative (Negative)
--- NOTE | 2024-03-03 14:11 | EDPHYS ---
Physician Documentation [facility] Name: Matt Farrell Age: 59 yrs Sex: Male : 1965 Arrival Date: 03/03/2024 Time: 12:37 Bed 7 Private MD: ED Physician Marisol Rajput HPI: 03/03 13:16 This 59 yrs old Male presents to ER via EMS with complaints of Shortness Of Breath. 3 13:16 59-year-old male with a history of diabetes, hypertension, [place], bronchitis presents to [facility] the ED with chief complaint shortness of breath. Patient was being worked up in [place] yesterday for the same thing and left AMA according to patient and EMS. Patient states all of this is started over the last few days and is progressively getting worse. Mild off-and-on chest pain as well. He denies any fever, abdominal pain, vomiting, diarrhea, known sick contacts, syncope, near syncope, or any other signs or symptoms on ROS at this time.. Historical: - Allergies: 13:14 PENICILLINS; tm6 - PMHx: 13:14 Arthritis; Bronchitis; Diabetes - NIDDM; Gout; heart disease; Hypertension; Myocardial tm6 infarction; PTSD; - PSHx: 13:14 Stented artery; tm6 - Immunization history:: Flu vaccine is not up to date. - Infectious Disease History:: Denies. - Social history:: Smoking status: Patient reports the use of cigarette tobacco products, smokes one pack cigarettes per day. ROS: 13:17 Constitutional: Negative for fever, chills, and weight loss, Eyes: Negative for injury, sp3 pain, redness, and discharge, Neck: Negative for injury, pain, and swelling, Abdomen/GI: Negative for abdominal pain, nausea, vomiting, diarrhea, and constipation, Back: Negative for injury and pain, MS/Extremity: Negative for injury and deformity, Skin: Negative for injury, rash, and discoloration, Neuro: Negative for headache, weakness, numbness, tingling, and seizure, Psych: Negative for depression, anxiety, suicide ideation, homicidal ideation, and hallucinations, Allergy/Immunology: Negative for hives, rash, and allergies, Endocrine: Negative for neck swelling, polydipsia, polyuria, polyphagia, and marked weight changes, Hematologic/Lymphatic: Negative for swollen nodes, abnormal bleeding, and unusual bruising, 13:17 All other systems are negative, Exam: 13:17 Constitutional: This is a well developed, well nourished patient who is awake, alert, sp3 and in no acute distress. Head/Face: Normocephalic, atraumatic. Eyes: Pupils equal round and reactive to light, extra-ocular motions intact. Lids and lashes normal. Conjunctiva and sclera are non-icteric and not injected. Cornea within normal limits. Periorbital areas with no swelling, redness, or edema. Neck: Trachea midline, no thyromegaly or masses palpated, and no cervical lymphadenopathy. Supple, full range of motion without nuchal rigidity, or vertebral point tenderness. No Meningismus. Chest/axilla: Normal chest wall appearance and motion. Nontender with no deformity. No lesions are appreciated. Abdomen/GI: Soft, non-tender, with normal bowel sounds. No distension or tympany. No guarding or rebound. No evidence of tenderness throughout. Back: No spinal tenderness. No costovertebral tenderness. Full range of motion. Skin: Warm, dry with normal turgor. Normal color with no rashes, no lesions, and no evidence of cellulitis. 13:17 Cardiovascular: Rate: tachycardic, 13:17 ECG was reviewed by the Attending Physician. EKG demonstrates sinus tachycardia at 120 bpm with normal intervals, normal axis, poor R wave progression and nonspecific interventricular delay. 13:17 Respiratory: Patient tachypneic and using accessory muscles. Rales noted bilaterally., Vital Signs: 12:39 BP 179 / 102; Pulse 120; Resp 26; Pulse Ox 94% on 6 lpm NC; MAP 123 mmHg; Pain 0/10; tm6 14:32 BP 176 / 104; Pulse 117; Resp 24; Pulse Ox 98% on Non-rebreather mask; MAP 123 mmHg; tm6 Pain 0/10; 15:30 BP 171 / 89; Pulse 117; Pulse Ox 97% on Non-rebreather mask; MAP 111 mmHg; Pain 0/10; tm6 19:22 BP 165 / 104; Pulse 107; Resp 26; Pulse Ox 96% on 6 lpm NC; al5 21:30 BP 158 / 90; Pulse 108; Resp 24; Pulse Ox 96% on 5 lpm NC; cp4 12:39 Pain Scale: Adult tm6 14:32 Pain Scale: Adult tm6 15:30 Pain Scale: Adult tm6 MDM: 12:54 Medical Screening Exam initiated sp3 13:18 Data reviewed: vital signs, nurses notes, lab test result(s), EKG, radiologic studies. sp3 ED course: 59-year-old male with difficulty breathing. Differential diagnosis is broad and includes pneumonia, CHF, bronchitis, acute coronary syndrome, PE, and to a lesser degree vascular pathology. Workup will include EKG, chest x-ray, CT chest, general labs and supportive care.. 14:08 ED course: Patient is positive for influenza A. BNP is elevated as is troponin. Chest sp3 x-ray demonstrates pulmonary edema which I believe is the source of his difficulty breathing coupled with the influenza. CT chest PE protocol pending however I am not highly suspicious of PE. Lasix and nitro have been ordered. Patient will be admitted with further invention as inpatient team deems necessary.. 03/03 12:58 Order name: Basic Metabolic Panel; Complete Time: 13:40 sp3 03/03 12:58 Order name: CBC with Diff; Complete Time: 13:50 sp3 03/03 12:58 Order name: LFT's; Complete Time: 13:40 sp3 03/03 12:58 Order name: Magnesium; Complete Time: 13:40 sp3 03/03 12:58 Order name: NT PRO-BNP; Complete Time: 13:40 sp3 03/03 12:58 Order name: PT-INR; Complete Time: 13:40 sp3 03/03 12:58 Order name: Troponin HS; Complete Time: 13:40 sp3 03/03 12:58 Order name: Lactate w/ 2H reflex if indic.; Complete Time: 14:02 sp3 03/03 12:58 Order name: SARS RAPID; Complete Time: 14:02 sp3 03/03 12:58 Order name: Flu; Complete Time: 14:02 sp3 03/03 13:21 Order name: CBC Smear Scan; Complete Time: 13:50 EDMS 03/03 15:20 Order name: Lactate w/ 2H reflex if indic. EDMS 03/03 15:20 Order name: CBC with Automated Diff EDMS 03/03 15:20 Order name: CBC with Automated Diff EDMS 03/03 15:20 Order name: Comprehensive Metabolic Panel EDMS 03/03 15:20 Order name: Comprehensive Metabolic Panel EDMS 03/03 15:20 Order name: Sputum Culture EDMS 03/03 18:36 Order name: Glucose, Ancillary Testing EDMS 03/03 22:11 Order name: Glucose, Ancillary Testing EDMS 03/03 12:58 Order name: XRAY Chest (1 view); Complete Time: 13:50 sp3 03/03 12:58 Order name: CT Chest For PE Angio; Complete Time: 14:16 sp3 03/03 12:58 Order name: EKG; Complete Time: 12:58 sp3 03/03 12:58 Order name: Cardiac monitoring; Complete Time: 13:11 sp3 03/03 12:58 Order name: EKG - Nurse/Tech; Complete Time: 13:11 sp3 03/03 12:58 Order name: IV Saline Lock; Complete Time: 13:11 sp3 03/03 12:58 Order name: Labs collected and sent; Complete Time: 13:11 sp3 03/03 12:58 Order name: O2 Per Protocol; Complete Time: 13:11 sp3 03/03 12:58 Order name: O2 Sat Monitoring; Complete Time: 13:11 sp3 Administered Medications: 13:43 Drug: Nitroglycerin Sublingual 0.4 mg Sublingual once; every five minute if needed x3 hb Route: Sublingual; 13:49 Drug: Nitroglycerin Sublingual 0.4 mg Sublingual once; every five minute if needed x3 hb Route: Sublingual; 15:31 Follow up: Response: No adverse reaction tm6 14:32 Drug: Furosemide IVP 40 mg IVP once; give over 2 minutes Route: IVP; Site: right tm6 antecubital; 15:31 Follow up: Response: No adverse reaction tm6 Disposition Summary: 03/03/24 14:10 Hospitalization Ordered Notes: Hospitalization Status: Inpatient Admission sp3 Provider: Zhen Gutierrez sp3 Condition: Fair sp3 Problem: an acute exacerbation sp3 Symptoms: have worsened sp3 Bed/Room Type: Standard sp3 Location: Intensive Care Unit(03/03/24 20:59) vc1 Room Assignment: 8-(03/03/24 20:59) vc1 Diagnosis - Influenza A, NSTEMI, CHF, difficulty breathing sp3 Forms: - Medication Reconciliation Form sp3 - SBAR form sp3 - Leadership Thank You Letter sp3 Signatures: Dispatcher [employer] EDMS Cassidy Bautista, RN RN Karin Mejia Setul, MD MD sp3 Josee Villanueva RN RN vc1 Tania Rosa RN RN tm6 Corrections: (The following items were deleted from the chart) 12:58 12:58 Chest For PE Angio+CT.RAD.BRZ ordered. EDMS EDMS 12:58 12:58 LACTATE+C.LAB.BRZ ordered. EDMS EDMS 12:58 12:58 SARS-COV-2 Antigen Rapid+I.LAB.BRZ ordered. EDMS EDMS 12:58 12:58 Influenza Screen (A \T\ B)+BA.LAB.BRZ ordered. EDMS EDMS 15:38 14:10 Telemetry/MedSurg (Inpatient) sp3 eb 15:38 14:10 sp3 eb 20:59 15:38 BR ER HOLD eb vc1 20:59 15:38 ERHOLD- eb vc1
--- NOTE | 2024-03-03 14:11 | ER ---
Nurse's Notes [facility] Name: Matt Farrell Age: 59 yrs Sex: Male : 1965 Arrival Date: 03/03/2024 Time: 12:37 Bed 7 Private MD: Diagnosis: Influenza A, NSTEMI, CHF, difficulty breathing Presentation: 03/03 12:39 Chief complaint: EMS states: patient with SOB, difficulty breathing, cough. Patient tm6 taken to [place] ED yesterday for same symptoms, but left AMA. Patient has history of coronary stent, not compliant with medications. Coronavirus screen: Client denies travel out of the [place] in the last 14 days. Ebola Screen: Patient negative for fever greater than or equal to 101.5 degrees Fahrenheit, and additional compatible Ebola Virus Disease symptoms Patient denies exposure to infectious person. Patient denies travel to an Ebola-affected area in the 21 days before illness onset. No symptoms or risks identified at this time. Initial Sepsis Screen: Does the patient meet any 2 criteria? RR > 20 per min. HR > 90 bpm. Does the patient have a suspected source of infection? No. Patient's initial sepsis screen is negative. Risk Assessment: Do you want to hurt yourself or someone else? Patient reports no desire to harm self or others. Onset of symptoms was March 02, 2024. 12:39 Method Of Arrival: EMS: [facility] tm6 12:39 Acuity: CHELSIE 3 tm6 12:39 Care prior to arrival: Medication(s) given: ASA, 81 mg, x 4, 125mg solumedrol. tm6 Triage Assessment: 13:14 General: Appears uncomfortable, ill, Behavior is cooperative. Pain: Denies pain. EENT: tm6 No signs and/or symptoms were reported regarding the EENT system. Neuro: Level of Consciousness is awake, alert, obeys commands, Oriented to person, place, time, situation. Cardiovascular: Reports shortness of breath, Patient's skin is warm and dry. Rhythm is sinus tachycardia. Respiratory: Reports shortness of breath at rest cough that is labored breathing Airway is patent Respiratory effort is labored, Respiratory pattern is tachypnea. GI: No signs and/or symptoms were reported involving the gastrointestinal system. Abdomen is flat, non-distended. : No signs and/or symptoms were reported regarding the genitourinary system. Derm: No signs and/or symptoms reported regarding the dermatologic system. Musculoskeletal: No signs and/or symptoms reported regarding the musculoskeletal system. Historical: - Allergies: 13:14 PENICILLINS; tm6 - PMHx: 13:14 Arthritis; Bronchitis; Diabetes - NIDDM; Gout; heart disease; Hypertension; Myocardial tm6 infarction; PTSD; - PSHx: 13:14 Stented artery; tm6 - Immunization history:: Flu vaccine is not up to date. - Infectious Disease History:: Denies. - Social history:: Smoking status: Patient reports the use of cigarette tobacco products, smokes one pack cigarettes per day. Screenin:15 [facility] ED Fall Risk Assessment (Adult) History of falling in the last 3 months, tm6 including since admission No falls in past 3 months (0 pts) Confusion or Disorientation No (0 pts) Intoxicated or Sedated No (0 pts) Impaired Gait No (0 pts) Mobility Assist Device Used No (0 pt) Altered Elimination No (0 pt) Score/Fall Risk Level 0 - 2 = Low Risk Oriented to surroundings, Maintained a safe environment, Educated pt \T\ family on fall prevention, incl call for assistance when getting out of bed. Abuse screen: Denies threats or abuse. Denies injuries from another. Nutritional screening: No deficits noted. Tuberculosis screening: No symptoms or risk factors identified. Assessment: 13:15 Reassessment: see triage assessment. tm6 14:33 Reassessment: Patient and/or family updated on plan of care and expected duration. Pain tm6 level reassessed. Patient is alert, oriented x 3, equal unlabored respirations, skin warm/dry/pink. 15:31 Reassessment: Patient and/or family updated on plan of care and expected duration. Pain tm6 level reassessed. Patient is alert, oriented x 3, equal unlabored respirations, skin warm/dry/pink. 19:20 General: Appears in no apparent distress. uncomfortable, Behavior is calm, cooperative. al5 Neuro: Level of Consciousness is awake, alert, obeys commands, Oriented to person, place, time, situation. Cardiovascular: Capillary refill < 3 seconds Patient's skin is warm and dry. Respiratory: Reports cough that is non-productive, Airway is patent Respiratory effort is even, labored, Respiratory pattern is regular, symmetrical. GI: No signs and/or symptoms were reported involving the gastrointestinal system. : No signs and/or symptoms were reported regarding the genitourinary system. EENT: No signs and/or symptoms were reported regarding the EENT system. Derm: Skin is intact, Skin is pink, warm \T\ dry. normal. Musculoskeletal: No signs and/or symptoms reported regarding the musculoskeletal system. Vital Signs: 12:39 BP 179 / 102; Pulse 120; Resp 26; Pulse Ox 94% on 6 lpm NC; MAP 123 mmHg; Pain 0/10; tm6 14:32 BP 176 / 104; Pulse 117; Resp 24; Pulse Ox 98% on Non-rebreather mask; MAP 123 mmHg; tm6 Pain 0/10; 15:30 BP 171 / 89; Pulse 117; Pulse Ox 97% on Non-rebreather mask; MAP 111 mmHg; Pain 0/10; tm6 19:22 BP 165 / 104; Pulse 107; Resp 26; Pulse Ox 96% on 6 lpm NC; al5 21:30 BP 158 / 90; Pulse 108; Resp 24; Pulse Ox 96% on 5 lpm NC; cp4 12:39 Pain Scale: Adult tm6 14:32 Pain Scale: Adult tm6 15:30 Pain Scale: Adult tm6 ED Course: 12:39 Patient arrived in ED. eb 12:41 Marisol Rajput MD is Attending Physician. sp3 12:47 So Lofton, RN is Primary Nurse. ph 12:50 EKG done, by ED staff, reviewed by Marisol Rajput MD. tm6 13:11 Basic Metabolic Panel Sent. tm6 13:11 CBC with Diff Sent. tm6 13:11 LFT's Sent. tm6 13:11 Magnesium Sent. tm6 13:11 NT PRO-BNP Sent. tm6 13:11 Troponin HS Sent. tm6 13:14 Triage completed. tm6 13:14 Arm band placed on right wrist. tm6 13:15 Maintain EMS IV. Dressing intact. Good blood return noted. Site clean \T\ dry. Gauge \T\ tm 6 site: 20g R hand. Flushed with 10 mL NS. 13:15 Oxygen administration via nasal cannula \T\ 6L/min. tm6 13:15 Patient has correct armband on for positive identification. Bed in low position. Call tm6 light in reach. Side rails up X 1. Provided Education on: use of call rain. Client placed on continuous cardiac and pulse oximetry monitoring. NIBP monitoring applied. campus monitor on. Pulse ox on. NIBP on. Noise minimized. Pillow given. 13:31 Flu Sent. tm6 13:31 SARS RAPID Sent. tm6 13:31 Lactate w/ 2H reflex if indic. Sent. tm6 13:32 XRAY Chest (1 view) In Process Unspecified. EDMS 13:49 Inserted saline lock: 18 gauge in right antecubital area, using aseptic technique. hb Flushed with 10 mL NS 14:04 CT Chest For PE Angio In Process Unspecified. EDMS 14:10 Zhen Gutierrez is Hospitalizing Provider. sp3 19:21 No provider procedures requiring assistance completed. al5 22:18 Patient admitted, IV remains in place. cp4 Administered Medications: 13:43 Drug: Nitroglycerin Sublingual 0.4 mg Sublingual once; every five minute if needed x3 hb Route: Sublingual; 13:49 Drug: Nitroglycerin Sublingual 0.4 mg Sublingual once; every five minute if needed x3 hb Route: Sublingual; 15:31 Follow up: Response: No adverse reaction tm6 14:32 Drug: Furosemide IVP 40 mg IVP once; give over 2 minutes Route: IVP; Site: right tm6 antecubital; 15:31 Follow up: Response: No adverse reaction tm6 Medication: 13:15 VIS not applicable for this client. tm6 Output: 16:23 Urine: 1200ml (Voided); Total: 1200ml. tm6 Outcome: 14:10 Decision to Hospitalize by Provider. sp3 22:17 Admitted to ICU cp4 22:17 Admitted to ICU accompanied by nurse, via stretcher, with oxygen, on monitor, with chart, Report called to Polina 22:17 Condition: stable 22:17 Condition: stable 22:17 Instructed on the need for admit, 22:22 Patient left the ED. cp4 Signatures: Dispatcher [employer] EDMD So Lofton RN RN Cassidy Bautista RN RN Karin Mejia Setul, MD MD sp3 Bianca Alberto cp4 Tania Rosa RN RN tm6 Langhorst, Clarissa, RN RN al5
--- NOTE | 2024-03-03 14:14 | RAD REPORT ---
EXAMINATION: CTA CHEST PE CLINICAL INDICATION: Male, 59 years old. DYSPNEA TECHNIQUE: This examination was performed according to an angiographic protocol with 3D post-processi ng. This involves 3D reconstructions, MIPs, volume rendered images and/or shaded surface rendering. One or more of the following dose reduction techniques were used: Automated exposure control, adjustm ent of the mA and/or kV according to patient size, and/or iterative reconstruction. Unless otherwise specified, incidental findings do not require dedicated imaging follow-up. [id number]. COMPARISON: Same-day chest x-ray FINDINGS: LOWER NECK: Visualized thyroid gland and soft tissues are normal. LUNGS AND AIRWAYS: Bilateral interlobular septal thickening. Bronchial wall thickening is present. No dular airspace disease is present in the right middle lobe. PLEURA: Small right pleural effusion. Trace left pleural effusion. MEDIASTINUM AND LYMPH NODES: Bilateral hilar adenopathy which is likely reactive. THORACIC AORTA: Normal caliber and configuration. PULMONARY ARTERIES: No evidence of pulmonary embolism. HEART: Small pericardial effusion. Coronary calcifications are present. OSSEOUS STRUCTURES AND CHEST WALL: Intact. UPPER ABDOMEN: No significant abnormalities. IMPRESSION: No evidence of pulmonary emboli to the subsegmental level. Pulmonary edema. Nodular airspace disease in the right middle lobe with asymmetric hilar adenopathy l ikely reflects a superimposed infectious process. Recommend 3 month follow-up chest CT.
[2024-03-03] MEDS ORDERED: GLUCAGON 1 MG/VIAL IM PRN (15:21)
[2024-03-03] MEDS ORDERED: D10W 125 ML IV PRN (15:21)
[2024-03-03] MEDS: Levofloxacin 750mg IV 750 MG/150 ML BAG IV SCH (16:00)
--- NOTE | 2024-03-03 16:20 | P.HP ---
Certification for Inpatient Patient admitted to: Inpatient With expected LOS: >2 Midnights Practitioner: I am a practitioner with admitting privileges, knowledge of patient current condition, hospital course, and medical plan of care. Services: Services provided to patient in accordance with Admission requirements found in Title 42 Section 412.3 of the Code of Federal Regulations Patient History Date of Service: 03/03/24 Primary Care Provider: none Reason for admission: dyspnea History of Present Illness: Mr. Farrell is a 59-year-old male who states his only medical problem is hypertension. He does admit to an [place] with 1 stent many years ago. His sister states he has been short of breath for 3 days and has tried to quit smoking for about a week. He arrives to the emergency department with acute hypoxic respiratory failure secondary to uncompensated CHF, suspected COPD, influenza A positive with pneumonia, uncontrolled diabetes with blood sugar over 300. Vital signs 176/104 heart rate 121 respiratory rate 29 SpO2 99% on a nonrebreather. He lives with and takes care of his significant other who is homebound. He states he has Nitrostat for home use but did not think of using it and is allergic to penicillin and yellow jackets for which he has an EpiPen. At bedside he is disheveled, with tachycardia and wheezing, chest x-ray shows pulmonary edema. CT PE protocol shows probable right middle lobe pneumonia without PE. In the emergency department he received 0.4 mg nitro x 2 and 40 mg of Lasix IV Mr. Farrell will be admitted to the ICU for further management and evaluation Allergies insect venom Allergy (Severe, Verified 03/03/24 16:37) Anaphylaxis Penicillins Adverse Reaction (Verified 03/03/24 16:36) Home medications list reviewed: Yes (Nitrostat) - Past Medical/Surgical History Has patient received pneumonia vaccine in the past: No -: Hypertension -: [place] -: CHF -: COPD -: Tobacco abuse -: Cardiac stent Psychosocial/ Personal History: Lives at home with and cares for his significant other who is bedbound - Family History Family History: Reviewed- Non-Contributory - Social History Smoking Status: Current every day smoker Counseled patient to stop smoking for: less than 10 minutes Smoking therapy provided: Yes (Started quitting last week) Alcohol use: No CD- Drugs: No Caffeine use: Yes Place of Residence: Home Review of Systems 10-point ROS is otherwise unremarkable General: As per HPI Eyes: Unremarkable ENT: Unremarkable Respiratory: Shortness of Breath, SOB with Excertion, Wheezing Cardiovascular: Unremarkable Gastrointestinal: Unremarkable Genitourinary: Unremarkable Musculoskeletal: Unremarkable Integumentary: Unremarkable Neurological: Unremarkable Physical Examination - Vital Signs Temperature: 99 F Blood Pressure: 176/104 Pulse: 121 Respirations: 29 Pulse Ox (%): 99 (Nonrebreather) - Physical Exam General: Alert, Oriented x3, Disheveled, Mild distress HEENT: Atraumatic, Normocephalic Neck: Supple Respiratory: Diminished, Expiratory wheezes Cardiovascular: Regular rate/rhythm, Other (Tachycardic) Capillary refill: <2 Seconds Gastrointestinal: Normal bowel sounds, Other (Obese) Musculoskeletal: No clubbing, No swelling Integumentary: No rashes Neurological: Normal speech, Normal tone, Normal affect Lymphatics: No axilla or inguinal lymphadenopathy External genitalia: Deferred Rectal: Deferred - Studies Laboratory Data (last 24 hrs) 03/03/24 03/03/24 03/03/24 13:00 13:00 13:00 WBC 7.50 Hgb 14.0 Hct 42.2 Plt Count 137 L PT 12.6 H INR 1.13 Sodium 131 L Potassium 3.8 BUN 19 H Creatinine 0.73 Glucose 312 H Magnesium 1.9 Total Bilirubin 0.7 AST 25 ALT 30 Alkaline Phosphatase 70 Microbiology Data (last 24 hrs): 03/03/24 13:27 Nasopharnyx Influenza Type A Antigen Screen - Final 03/03/24 13:27 Nasopharnyx Influenza Type B Antigen Screen - Final Assessment and Plan - Plan Admit to ICU acute hypoxic respiratory failure secondary to uncompensated CHF o2 per protocol pulse ox monitoring lasix 40mg IV q8h Blood pressure control with labetalol COPD exacerbation albuterol nebs influenza A positive with pneumonia, tamiflu Levaquin respiratory toilet isolation uncontrolled diabetes with blood sugar over 300. hgb a1c semglee x 1 fsbs monitoring with ssi coverage VTE prophylaxis Discharge Plan: Home Plan to discharge in: Greater than 2 days - Advance Directives Does patient have a Living Will: No Does patient have a Durable POA for Healthcare: No - Code Status/Comfort Care Code Status Assessed: Yes (Full)
[2024-03-03] MEDS: FUROSEMIDE 40 MG/4 ML VIAL IV SCH (17:00)
[2024-03-03] MEDS: LABETALOL 20 MG/4ML SYRINGE IV SCH (17:00)
[2024-03-03] MEDS ORDERED: LABETALOL 20 MG/4ML SYRINGE IV ONE (18:02)
[2024-03-03] MEDS ORDERED: Levofloxacin 750mg IV 750 MG/150 ML BAG IV ONE (18:03)
[2024-03-03] MEDS ORDERED: ONDANSETRON 4 MG/2 ML VIAL ONE (18:28)
[2024-03-03] MEDS ORDERED: INSULIN GLARGINE 100 UNIT/ML SQ ONE (18:28)
[2024-03-03] MEDS ORDERED: INSULIN REGULAR (HUMAN) 100 UNIT/ML ONE (18:29)
[2024-03-03] MEDS: INSULIN REGULAR (HUMAN) 100 UNIT/ML SQ SCH (18:40)
[2024-03-03] MEDS: INSULIN GLARGINE 100 UNIT/ML SQ ONE (18:40)
[2024-03-03] MEDS: ONDANSETRON 4 MG/2 ML VIAL IV PRN (18:41)
[2024-03-03] MEDS: ALBUTEROL 2.5 MG/3 ML NEB SOL NEB SCH (19:00)
[2024-03-03] MEDS: IPRATROPIUM BROM 0.5MG/2.5ML NEB SCH (19:00)
[2024-03-03] MEDS: HYDRALAZINE HCL 20 MG/ML VIAL IV PRN (22:58)
[2024-03-03] MEDS: ALPRAZOLAM 0.5 MG TABLET PO PRN (22:58)
[2024-03-03] MEDS: OSELTAMIVIR 75 MG CAP PO SCH (23:14)
[2024-03-03] MEDS: LORazepam 2 MG/ML VIAL ONE (23:29)
[2024-03-03] MEDS: DEXMEDETOMIDINE HCL 200 MCG/2 ML VIAL ONE (23:41)
[2024-03-03] MEDS: NA CHLORIDE 0.9% 100 ML ONE (23:42)
[2024-03-03] MEDS: NITROGLYCERIN/D5W 50 MG/250 ML BTL IV SCH (23:42)
[2024-03-04] MEDS: DEXMEDETOMIDINE HCL 200 MCG in NA CHLORIDE 0.9% 98 ML IV SCH
--- NOTE | 2024-03-04 00:55 | RAD REPORT ---
XR CHEST 1 VIEW CLINICAL INDICATION: Cough COMPARISON: None FINDINGS: SUPPORT DEVICES: None LUNGS/PLEURAL SPACES: Diffuse hazy interstitial and groundglass opacities throughout both lungs, conc erning for interstitial edema and infiltrates. No obvious pleural effusion. No pneumothorax. HEART/MEDIASTINUM: Heart is top normal in size. BONES/UPPER ABDOMEN/SOFT TISSUES: No acute findings. IMPRESSION: Diffuse hazy interstitial and groundglass opacities throughout both lungs, concerning for interstitia l edema and infiltrates. Electronically signed by: Rachel Nathan MD 03/04/2024 12:23 AM [facility] Due to temporary technical issues with the PACS/Grid2Home reporting system, reports are being vidhi d by the in-house radiologist without review as a courtesy to ensure prompt reporting the interpreting radiologist is fully responsible for the content of the report. Transcribed Date/Time: 03/04/2024 12:54 AM
[2024-03-04] MEDS: ALBUTEROL 2.5 MG/3 ML NEB SOL NEB SCH (01:00)
[2024-03-04 05:49] LABS: Absolute Lymphocytes (CBC) 0.3 K/uL (0.7-4.9); Absolute Monocytes 0.5 K/uL (0.1-1.3); Absolute Neutrophil 5.6 K/uL (1.8-8.0); Basophils % 0.2 % (0-1.3); Hematocrit 42.5 % (39.6-49.0); Hemoglobin 14.3 g/dL (13.6-17.9); Lymphocytes % 4.7 % (15.3-44.8); MCH 29.5 pg (27.0-35.0); MCHC 33.6 g/dL (32.0-36.0); MCV 87.9 fL (80-100); MPV 8.3 fL (7.6-11.3); Monocytes % 7.3 % (3.3-12.3); Neutrophils % 87.8 % (41.7-73.7); Nucleated Red Blood Cells % 0.3 % (0-0); Platelets 131 thou/uL (152-406); RBC Red Blood Cell Count 4.83 M/uL (4.33-5.43); Red Cell Distribution Width 13.2 % (12.1-15.2)
[2024-03-04 06:12] LABS: Albumin 3.1 g/dL (3.4-5.0); Albumin/Globulin Ratio 0.9 (1.1-1.8); Anion Gap 5.9 mEq/L (5.0-15.0); Bilirubin Total 0.6 mg/dL (0.2-1.0); Globulin 3.6 g/dL (2.3-3.5); Potassium 3.9 mEq/L (3.5-5.1); Protein, Total 6.7 g/dL (6.4-8.2)
[2024-03-04 06:30] LABS: Arterial Blood Carboxyhemoglob 42.4 % (0-1.5); Blood Gas Oxyhemoglobin 48.6 % (94-97); Blood O2 Saturation 46.9 % (92-98.5)
[2024-03-04 06:31] LABS: Blood Gas THB 16.9 g/dl (12-18)
[2024-03-04] MEDS: FLU (Fluarix Triv) TS24-25(6MOS UP)/PF 45 MCG/0.5 ML Syringe IM ONE (07:30)
--- NOTE | 2024-03-04 08:05 | P.PN ---
Date of Service: 03/04/24 Subjective mildly sedated post "panic attack" last pm Review of Systems 10-point ROS is otherwise unremarkable General: As per HPI Eyes: Unremarkable ENT: Unremarkable Respiratory: Shortness of Breath, SOB with Exertion, Wheezing Cardiovascular: Unremarkable Gastrointestinal: Unremarkable Genitourinary: Unremarkable Musculoskeletal: Unremarkable Integumentary: Unremarkable Neurological: Unremarkable Physical Examination - Vital Signs Temperature: 99 F Blood Pressure: 104/71 Pulse: 76 Respirations: 20 Pulse Ox (%): 94 BiPap - Physical Exam General: sedated mildly, Disheveled HEENT: Atraumatic, Normocephalic Neck: Supple Respiratory: Diminished, Clear Cardiovascular: Regular rate/rhythm, no edema Capillary refill: <2 Seconds Gastrointestinal: Normal bowel sounds, Other (Obese) Musculoskeletal: No clubbing, No swelling Integumentary: No rashes Neurological: Normal tone, Normal affect Lymphatics: No axilla or inguinal lymphadenopathy External genitalia: Deferred Rectal: Deferred - Studies Laboratory Data (last 24 hrs) 03/03/24 03/03/24 03/03/24 13:00 13:00 13:00 WBC 7.50 Hgb 14.0 Hct 42.2 Plt Count 137 L PT 12.6 H INR 1.13 Sodium 131 L Potassium 3.8 BUN 19 H Creatinine 0.73 Glucose 312 H Magnesium 1.9 Total Bilirubin 0.7 AST 25 ALT 30 Alkaline Phosphatase 70 Microbiology Data (last 24 hrs): 03/03/24 13:27 Nasopharnyx Influenza Type A Antigen Screen - Final 03/03/24 13:27 Nasopharnyx Influenza Type B Antigen Screen - Final Assessment and Plan - Plan Admit to ICU acute hypoxic respiratory failure secondary to uncompensated CHF o2 per protocol - biPap pulse ox monitoring lasix 40mg IV q8h Blood pressure control with labetalol COPD exacerbation albuterol nebs influenza A positive with pneumonia, tamiflu Levaquin respiratory toilet isolation uncontrolled diabetes with blood sugar over 300. hgb a1c = 10 semglee fsbs monitoring with ssi coverage Elevated trop and DD Negative for PE Lovenox 100mg sc q 12h; aspirin Consult cardio ECHO VTE prophylaxis Discharge Plan: Home Plan to discharge in: Greater than 2 days - Advance Directives Does patient have a Living Will: No Does patient have a Durable POA for Healthcare: No - Code Status/Comfort Care Code Status Assessed: Yes (Full) <Sharon Moore - Last Filed: 03/04/24 08:06> Patient was seen and examined. Events of the last 24 hours have been noted. Spoke with with ANITA regarding patient's clinical picture after evaluating and examining the patient independently. I performed a substantial part of the MDM during this patient's care today. I personally made or approved the documented management plan and acknowledge its risk of complications. I agree with the findings and documentation provided in the ANITA's notes. <Alfredo Parker - Last Filed: 03/11/24 15:31>
[2024-03-04] MEDS: ENOXAPARIN 100 MG/ML SYR SQ SCH (08:45)
[2024-03-04] MEDS: ASPIRIN EC 81 MG TAB PO SCH (08:45)
[2024-03-04] MEDS ORDERED: ENOXAPARIN 40 MG/0.4 ML SQ SCH (09:00)
--- NOTE | 2024-03-04 13:48 | P.CNS ---
Date of Consult: 03/04/24 Primary Care Provider: none Chief Complaint: dyspnea History of Present Illness: Patient with PMH of CAD, tobacco use presented with worsening SOB for last few days, report one episode of chest pain, no other cardiac symptoms. Allergies insect venom Allergy (Severe, Verified 03/03/24 16:37) Anaphylaxis Penicillins Adverse Reaction (Verified 03/03/24 16:36) Home medications list reviewed: Yes Home Medications: NK [No Home Meds] 03/03/24 - Past Medical/Surgical History -: Hypertension -: [place] -: CHF -: COPD -: Tobacco abuse -: Cardiac stent Psychosocial/ Personal History: Lives at home with and cares for his significant other who is bedbound - Social History Smoking Status: Current every day smoker Alcohol use: No CD- Drugs: No Caffeine use: Yes Place of Residence: Home Review of Systems 10-point ROS is otherwise unremarkable Physical Examination Temp Pulse Resp BP Pulse Ox 98.2 F 91 H 24 H 110/79 96 03/04/24 08:00 03/04/24 13:00 03/04/24 11:00 03/04/24 11:00 03/04/24 13:00 General: Alert, In no apparent distress HEENT: Atraumatic, PERRLA, Mucous membr. moist/pink, EOMI, Sclerae nonicteric Neck: Supple, 2+ carotid pulse no bruit, No LAD, Without JVD or thyroid abnormality Respiratory: Clear to auscultation bilaterally, Normal air movement Cardiovascular: Regular rate/rhythm, Normal S1 S2 Gastrointestinal: Normal bowel sounds, No tenderness Musculoskeletal: No tenderness Integumentary: No rashes Neurological: Normal gait, Normal speech, Normal tone, Normal affect Lymphatics: No axilla or inguinal lymphadenopathy - Problems (1) SOB (shortness of breath) Current Visit: Yes Status: Acute Plan: continue Lasix 40 mg IV Q8 hrs continue to monitor input and output and electrolytes. (2) NSTEMI (non-ST elevated myocardial infarction) Current Visit: Yes Status: Acute Plan: most likely type 2 [place] from heart failure and flu positive, but patient got multiple risk factors, will need ischemia evaluation, will decide on that depending on hospital course.
[2024-03-04] MEDS: INSULIN GLARGINE 100 UNIT/ML SQ SCH (17:09)
[2024-03-04 17:32] VITALS: BMI 27.5
[2024-03-04] MEDS: MAGNES/ALUMIN/SIMET 30ML UCUP PO PRN (18:28)
[2024-03-05 06:18] LABS: Albumin 2.9 g/dL (3.4-5.0); Albumin/Globulin Ratio 0.8 (1.1-1.8); Anion Gap 7.2 mEq/L (5.0-15.0); Bilirubin Total 0.7 mg/dL (0.2-1.0); Globulin 3.5 g/dL (2.3-3.5); Phosphorus 3.1 mg/dL (2.5-4.9); Potassium 3.2 mEq/L (3.5-5.1); Protein, Total 6.4 g/dL (6.4-8.2)
[2024-03-05] MEDS: ENOXAPARIN 100 MG/ML SYR SQ SCH (08:27)
[2024-03-05] MEDS: POTASSIUM 25 MEQ EFFERV TAB PO ONE (08:27)
--- NOTE | 2024-03-05 09:46 | P.PN ---
Subjective Date of Service: 03/05/24 Primary Care Provider: none Chief Complaint: dyspnea Subjective: No new changes, No C/O voiced, Tolerating diet, Ambulating, Improving Review of Systems 10-point ROS is otherwise unremarkable Physical Examination - Vital Signs Temperature: 98.6 F Blood Pressure: 125/80 Pulse: 98 Respirations: 18 Pulse Ox (%): 99 - Physical Exam General: Alert, In no apparent distress HEENT: Atraumatic, PERRLA, EOMI Neck: Supple, JVD not distended Respiratory: Clear to auscultation bilaterally, Normal air movement Cardiovascular: Regular rate/rhythm, Normal S1 S2 Gastrointestinal: Normal bowel sounds, No tenderness Musculoskeletal: No tenderness Integumentary: No rashes Neurological: Normal speech, Normal tone, Normal affect Lymphatics: No axilla or inguinal lymphadenopathy - Studies Medications List Reviewed: Yes Assessment And Plan - Current Problems (Diagnosis) (1) SOB (shortness of breath) Current Visit: Yes Status: Acute Plan: continue Lasix 40 mg IV Q8 hrs continue to monitor input and output and electrolytes. (2) NSTEMI (non-ST elevated myocardial infarction) Current Visit: Yes Status: Acute Plan: most likely type 2 [place] from heart failure and flu positive, but patient got multiple risk factors, will need ischemia evaluation, will decide on that depending on hospital course.
[2024-03-05] MEDS: ACETAMINOPHEN 500 MG TAB PO PRN (10:57)
[2024-03-05] MEDS: METHYLPREDNISOLONE 40 MG INJ IV ONE (10:58)
[2024-03-05] MEDS: ALBUMIN HUMAN 25% 50 ML IV ONE (10:58)
[2024-03-05] MEDS: SPIRONOLACTONE 25 MG TABLET PO SCH (10:58)
[2024-03-05] MEDS: METHYLPREDNISOLONE 40 MG INJ IV SCH (10:59)
[2024-03-05] MEDS: dexAMETHasone 4 MG/ML VIAL IV ONE (12:00)
[2024-03-05] MEDS: IPRATROPIUM BROM 0.5MG/2.5ML NEB SCH (13:48)
[2024-03-05 18:28] LABS: Albumin 3.1 g/dL (3.4-5.0); Albumin/Globulin Ratio 0.8 (1.1-1.8); Anion Gap 8.1 mEq/L (5.0-15.0); Bilirubin Total 0.7 mg/dL (0.2-1.0); Globulin 3.8 g/dL (2.3-3.5); Magnesium 1.9 mg/dL (1.6-2.4); Potassium 4.1 mEq/L (3.5-5.1); Protein, Total 6.9 g/dL (6.4-8.2)
[2024-03-06] MEDS: INSULIN REGULAR (HUMAN) 100 UNIT/ML SQ SCH (08:07)
[2024-03-06 08:32] LABS: Albumin 3.2 g/dL (3.4-5.0); Albumin/Globulin Ratio 0.8 (1.1-1.8); Anion Gap 7.5 mEq/L (5.0-15.0); Bilirubin Total 0.6 mg/dL (0.2-1.0); Globulin 3.8 g/dL (2.3-3.5); Phosphorus 3.2 mg/dL (2.5-4.9); Potassium 3.5 mEq/L (3.5-5.1)
[2024-03-06] MEDS: POTASSIUM CL SA 10 MEQ TAB PO ONE (09:49)
[2024-03-06] MEDS ORDERED: SPIRONOLACTONE 25 MG TABLET PO ONE (10:13)
[2024-03-06] MEDS: MORPHINE 4 MG/ML SYR IV ONE ×2 (14:45→17:59)
--- NOTE | 2024-03-06 17:33 | P.PN ---
Subjective Date of Service: 03/06/24 Primary Care Provider: none Chief Complaint: dyspnea Subjective: No new changes, No C/O voiced, Tolerating diet, Ambulating, Improving Review of Systems 10-point ROS is otherwise unremarkable Physical Examination - Vital Signs Temperature: 98.5 F Blood Pressure: 123/90 Pulse: 102 Respirations: 17 Pulse Ox (%): 96 - Physical Exam General: Alert, In no apparent distress HEENT: Atraumatic, PERRLA, EOMI Neck: Supple, JVD not distended Respiratory: Clear to auscultation bilaterally, Normal air movement Cardiovascular: Regular rate/rhythm, Normal S1 S2 Gastrointestinal: Normal bowel sounds, No tenderness Musculoskeletal: No tenderness Integumentary: No rashes Neurological: Normal speech, Normal tone, Normal affect Lymphatics: No axilla or inguinal lymphadenopathy - Studies Medications List Reviewed: Yes Assessment And Plan - Current Problems (Diagnosis) (1) SOB (shortness of breath) Current Visit: Yes Status: Acute Plan: continue Lasix 40 mg IV Q8 hrs continue to monitor input and output and electrolytes. (2) NSTEMI (non-ST elevated myocardial infarction) Current Visit: Yes Status: Acute Plan: most likely type 2 [place] from heart failure and flu positive, breathing status is better now NPO after midnight for coronary angiogram in am.
[2024-03-06] MEDS: GUAIFENESIN/DM 5 ML UCUP PO PRN (20:53)
[2024-03-07] MEDS: HYDROCODONE/APAP 10/325 TAB PO PRN (04:20)
[2024-03-07 06:00] LABS: Absolute Lymphocytes (CBC) 1.1 K/uL (0.7-4.9); Absolute Monocytes 0.5 K/uL (0.1-1.3); Absolute Neutrophil 2.3 K/uL (1.8-8.0); Basophils % 0.3 % (0-1.3); Hematocrit 46.9 % (39.6-49.0); Hemoglobin 15.8 g/dL (13.6-17.9); Lymphocytes % 27.9 % (15.3-44.8); MCH 29.4 pg (27.0-35.0); MCHC 33.7 g/dL (32.0-36.0); MCV 87.2 fL (80-100); Monocytes % 13.1 % (3.3-12.3); Neutrophils % 58.7 % (41.7-73.7); Nucleated Red Blood Cells % 0.2 % (0-0); Platelets 121 thou/uL (152-406); RBC Red Blood Cell Count 5.38 M/uL (4.33-5.43); Red Cell Distribution Width 13.3 % (12.1-15.2)
[2024-03-07 06:25] LABS: Albumin 3.3 g/dL (3.4-5.0); Albumin/Globulin Ratio 0.8 (1.1-1.8); Anion Gap 10.4 mEq/L (5.0-15.0); Bilirubin Total 0.6 mg/dL (0.2-1.0); Globulin 3.9 g/dL (2.3-3.5); Magnesium 1.8 mg/dL (1.6-2.4); Potassium 3.4 mEq/L (3.5-5.1); Protein, Total 7.2 g/dL (6.4-8.2)
[2024-03-07] MEDS: POTASSIUM CL SA 10 MEQ TAB PO ONE (08:25)
[2024-03-07] MEDS: MAGNESIUM SULFATE 1 gm IVPB 1 GM/100 ML BAG IV ONE (08:26)
--- NOTE | 2024-03-07 09:16 | RAD REPORT ---
EXAMINATION: ONE VIEW CHEST XR CLINICAL INDICATION: Male, 59 years old.,pneumonia TECHNIQUE: Frontal chest projection is submitted. Examination is limited by patient positioning and t echnique. COMPARISON: 03/03/2024. FINDINGS: Near complete improvement of bibasilar airspace opacities and interstitial prominence. Some patchy ri ght basilar airspace opacities are present today. No pneumothorax or sizable effusion. The heart is normal in size. Mediastinal contours are unremarkable. IMPRESSION: Near complete improvement with some residual right basilar opacities, may relate to improving edema o r pneumonia.
[2024-03-07] MEDS ORDERED: MIDAZOLAM HCL 2 MG/2 ML INJ ONE (12:08)
[2024-03-07] MEDS ORDERED: HEPA 1000U/500MLS 2,000 UNIT/1,000 ML BAG IV ONE (12:08)
[2024-03-07] MEDS ORDERED: HEPARIN 10,000 UNIT/10 ML VIAL IV ONE (12:08)
[2024-03-07] MEDS ORDERED: ATROPINE SULF 1 MG/10 ML SYR IV ONE (12:08)
[2024-03-07] MEDS ORDERED: LIDOCAINE 1% 20 ML MDV ONE (12:08)
[2024-03-07] MEDS ORDERED: CLOPIDOGREL 75 MG TABLET ONE (12:09)
[2024-03-07] MEDS ORDERED: ASPIRIN 325 MG TAB ONE (12:09)
[2024-03-07] MEDS ORDERED: TICAGRELOR 90 MG TABLET PO ONE (12:09)
[2024-03-07] MEDS ORDERED: FENTANYL CITR 100 MCG/2 ML ONE (12:09)
[2024-03-07] MEDS ORDERED: HEPARIN 5000 UNIT/ML 1 ML VIAL ONE (12:09)
[2024-03-07] MEDS ORDERED: NA CHLORIDE 0.9% 500 ML ONE (12:13)
[2024-03-07] MEDS ORDERED: METOPROLOL TARTRATE 5 MG/5 ML INJ IV ONE (12:27)
[2024-03-07] MEDS ORDERED: AMIODARONE IN DEXTROSE,ISO-OSM 0 MG/0 ML BAG IV ONE (12:28)
[2024-03-07] MEDS: METOPROLOL TAR 25 MG TAB PO SCH (13:22)
--- NOTE | 2024-03-07 23:19 | OP ---
Date of Procedure: 03/07/2024 Surgeon: Primo Zimmerman Procedures Performed: 1.Left heart catheterization. 2.Selective coronary angiogram. Indication For Procedure: [id number] IA, heart failure. Complications: None. Estimated Blood Loss: Less than 50 cc. Access: Right radial, closed by TR band. Sedation Time: 20 minutes with 1 of Versed and 25 fentanyl. Description Of Procedure: After risks, benefits, and alternatives were explained to the patient, the patient agreed to proceed with procedure and signed informed consent. The patient was brought back to the laboratory equipment cleaner, prepped and draped in sterile fashion. Time-out was performed. Sedation was admini stered. Next, right radial ultrasound-guided micropuncture technique access was obtained. [place] 4 c atheter was advanced over the J-wire to the LV cavity. LVEDP was obtained. Pullback did not show an y gradient. Same catheter was used for selective angiogram of the left and right coronary systems. At the end of procedure, catheter was removed over a J-wire. Sheath was removed. TR band was applie d. Hemostasis achieved. The patient was moved back to recovery in stable condition. Findings: 1.Left main: Normal. 2.LAD: Diffuse mild luminal irregularities with very distal 50% to 60% disease, then mild luminal i rregularities. Gives collaterals to the right side. 3.Left circumflex: Mild luminal irregularities. 4.RCA: Mid 80% disease, then mid to distal occluded 100% ISR, most likely SUPERVISING BAILIFF. Most likely there a re 2 layers of stents there. Left to right collaterals into RPDA. 5.LVEDP: 3 mmHg. Assessment And Plan: 1.Mid 100% occluded right coronary artery stent, chronic total occlusion, with [id number] collate rals, most likely 2 layers of stents, no space for intervention here. 2.Distal left anterior descending, moderate disease, small artery. 3.Normal filling pressure. Plan will be to continue medical management for CAD. BEE/PRINCESS Voice ID: [id number] Report ID: [id number]
[2024-03-08 06:09] LABS: Anion Gap 8.6 mEq/L (5.0-15.0); Magnesium 1.9 mg/dL (1.6-2.4); Phosphorus 3.6 mg/dL (2.5-4.9); Potassium 3.6 mEq/L (3.5-5.1)
[2024-03-08] MEDS: POTASSIUM CL SA 10 MEQ TAB PO ONE (06:27)
--- NOTE | 2024-03-08 12:51 | P.PN ---
Subjective Date of Service: 03/08/24 Primary Care Provider: none Chief Complaint: dyspnea Subjective: No new changes, No C/O voiced, Tolerating diet, Ambulating, Improving Review of Systems 10-point ROS is otherwise unremarkable Physical Examination - Vital Signs Temperature: 98.6 F Blood Pressure: 135/87 Pulse: 90 Respirations: 18 Pulse Ox (%): 98 - Physical Exam General: Alert, In no apparent distress HEENT: Atraumatic, PERRLA, EOMI Neck: Supple, JVD not distended Respiratory: Clear to auscultation bilaterally, Normal air movement Cardiovascular: Regular rate/rhythm, Normal S1 S2 Gastrointestinal: Normal bowel sounds, No tenderness Musculoskeletal: No tenderness Integumentary: No rashes Neurological: Normal speech, Normal tone, Normal affect Lymphatics: No axilla or inguinal lymphadenopathy - Studies Medications List Reviewed: Yes Assessment And Plan - Current Problems (Diagnosis) (1) SOB (shortness of breath) Current Visit: Yes Status: Acute Plan: switch lasix to 40 mg po BID (Patient LVEDP is 3 mmHg) increase lopressor to 50 mg po BID Stop IV labetolol if BP permit, add Losartan 25 mg daily continue Aldactone 25 mg BID continue to monitor input and output and electrolytes. (2) NSTEMI (non-ST elevated myocardial infarction) Current Visit: Yes Status: Acute Plan: most likely type 2 [place] from heart failure and flu positive, Coronary angiogram done and shows mild LAD/LCX disease with RCA FIELD CROP GROWER with good collaterals continue ASA 81 mg daily
[2024-03-08] MEDS: FUROSEMIDE 40 MG TABLET PO SCH (15:45)
--- NOTE | 2024-03-08 16:08 | EKG ---
Test Date: 2024-03-03 Test Time: 12:53:11 Leather Tooler: MILAGROS MEASUREMENT RESULTS: Intervals: Rate: 123 VA: 172 QRSD: 102 QT: 310 QTc: 443 [place]: P: 74 VA: 172 QRS: 58 T: 115 INTERPRETIVE STATEMENTS: Sinus tachycardia Biatrial enlargement Septal infarct, age undetermined ST & T wave abnormality, consider lateral ischemia Abnormal ECG Compared to ECG 09/26/2021 19:16:08 ST (T wave) deviation now present Possible ischemia now present Sinus rhythm no longer present Ventricular premature complex(es) no longer present Myocardial infarct finding still present Electronically Signed On 03-08-24 15:58:09 SOFTWARE TEST MANAGER by Primo Zimmerman
[2024-03-08] MEDS: METOPROLOL TAR 50 MG TAB PO SCH (17:00)
[2024-03-09] MEDS: LOSARTAN POTASSIUM 50 MG TABLET PO SCH (08:52)
[2024-03-10 05:11] LABS: Absolute Lymphocytes (CBC) 1.4 K/uL (0.7-4.9); Absolute Monocytes 0.5 K/uL (0.1-1.3); Absolute Neutrophil 1.9 K/uL (1.8-8.0); Basophils % 0.4 % (0-1.3); Hematocrit 38.9 % (39.6-49.0); Hemoglobin 13.4 g/dL (13.6-17.9); Lymphocytes % 36.6 % (15.3-44.8); MCH 29.5 pg (27.0-35.0); MCHC 34.4 g/dL (32.0-36.0); MCV 85.7 fL (80-100); Monocytes % 12.2 % (3.3-12.3); Neutrophils % 49.8 % (41.7-73.7); Nucleated Red Blood Cells % 0.2 % (0-0); Platelets 124 thou/uL (152-406); RBC Red Blood Cell Count 4.54 M/uL (4.33-5.43); Red Cell Distribution Width 13.1 % (12.1-15.2)
[2024-03-10 05:34] LABS: Anion Gap 6.4 mEq/L (5.0-15.0); Magnesium 1.8 mg/dL (1.6-2.4); Potassium 4.4 mEq/L (3.5-5.1)
[2024-03-10] MEDS: MAGNESIUM SULFATE 1 gm IVPB 1 GM/100 ML BAG IV ONE (10:43)
--- NOTE | 2024-03-10 12:46 | P.PN ---
Subjective Date of Service: 03/10/24 Primary Care Provider: none Chief Complaint: dyspnea Back pain, will order as needed analgesics, currently on room air, <Flora Harrison - Last Filed: 03/10/24 13:06> Date of Service: 03/10/24 <Alfredo Parker - Last Filed: 03/11/24 15:30> Review of Systems 10-point ROS is otherwise unremarkable <Flora Harrison - Last Filed: 03/10/24 13:06> Physical Examination - Vital Signs Temperature: 97.8 F Blood Pressure: 105/67 Pulse: 76 Respirations: 20 Pulse Ox (%): 93 - Physical Exam General: Alert, In no apparent distress, Oriented x3 HEENT: Atraumatic, Normocephalic Respiratory: Normal air movement, Diminished Cardiovascular: Normal pulses, Regular rate/rhythm, Normal S1 S2 Capillary refill: <2 Seconds Gastrointestinal: Normal bowel sounds, Soft and benign Musculoskeletal: No clubbing, No swelling Integumentary: No breakdown, No significant lesion Neurological: Normal speech, Normal strength at 5/5 x4 extr, Sensation intact - Studies Medications List Reviewed: Yes <Flora Harrison - Last Filed: 03/10/24 13:06> Assessment And Plan - Plan Assessment and Plan Admit admit to ICU, downgraded MedSurg, on telemetry acute hypoxic respiratory failure secondary influenza /COPD exacerbation/viral pneumonia BiPAP, weaned to nasal cannula, wean to room air lasix p.o.,albuterol nebs influenza A positive with pneumonia, weaned to room air tamiflu, Levaquin Acute on chronic heart failure unknown ejection fraction NSTEMI, [place] type II Cardiology was consulted Status post cardiac cath 03/07 Findings: Mid LAD/LCx disease with RCA PLANT PHYSIOLOGIST with good collaterals-Plan will be to continue medical management for CAD. 1. Left main: Normal. 2. LAD: Diffuse mild luminal irregularities with very distal 50% to 60% disease, then mild luminal irregularities. Gives collaterals to the right side. 3. Left circumflex: Mild luminal irregularities. 4. RCA: Mid 80% disease, then mid to distal occluded 100% ISR, most likely PLANT PHYSIOLOGIST. Most likely there are 2 layers of stents there. Left to right collaterals into RPDA. 5. LVEDP: 3 mmHg. 1. Mid 100% occluded right coronary artery stent, chronic total occlusion, with [id number] collaterals, most likely 2 layers of stents, no space for intervention here. 2. Distal left anterior descending, moderate disease, small artery. 3. Normal filling pressure. CT negative for PE Lovenox 100mg sc q 12h; aspirin ECHO Medications at discharge, Lasix 40 mg 1 p.o. twice daily, Lopressor 50 mg 1 p.o. twice daily losartan 25 mg daily, Aldactone 25 mg twice daily, aspirin 81 mg daily Hypotensive, Lopressor decreased to 25 mg twice daily uncontrolled diabetes with hyperglycemia hgb a1c = 10 semglee increased to 20 to 25 units daily fsbs monitoring with ssi coverage Back pain: Urine VTE prophylaxis Discharge Plan: Home Plan to discharge in: Greater than 2 days - Advance Directives Does patient have a Living Will: No Does patient have a Durable POA for Healthcare: No -Full code ) Discharge Plan: Home Critical Care: No Time Spent Managing PTS Care (In Minutes): 35 <Flora Harrison - Last Filed: 03/10/24 13:06> Date of Service: 03/10/24 Patient was seen and examined. Events of the last 24 hours have been noted. Spoke with with ANITA regarding patient's clinical picture after evaluating and examining the patient independently. I performed a substantial part of the MDM during this patient's care today. I personally made or approved the documented management plan and acknowledge its risk of complications. I agree with the findings and documentation provided in the ANITA's notes. <Alfredo Parker - Last Filed: 03/11/24 15:30>
--- NOTE | 2024-03-10 13:12 | P.PN ---
Date of Service: 03/09/24 Subjective Chief Complaint: dyspnea O2 2 L plan to wean to room air, out of bed to chair for meals Review of Systems 10-point ROS is otherwise unremarkable Physical Examination - Vital Signs Reviewed - Physical Exam General: Alert, In no apparent distress, Oriented x3 HEENT: Atraumatic, Normocephalic Respiratory: Normal air movement, Diminished Cardiovascular: Normal pulses, Regular rate/rhythm, Normal S1 S2 Capillary refill: <2 Seconds Gastrointestinal: Normal bowel sounds, Soft and benign Musculoskeletal: No clubbing, No swelling Integumentary: No breakdown, No significant lesion Neurological: Normal speech, Normal strength at 5/5 x4 extr - Studies Medications List Reviewed: Yes Assessment And Plan - Plan Assessment and Plan acute hypoxic hypercarbic respiratory failure secondary influenza /COPD exacerbation/viral pneumonia Admit admit to ICU, downgraded MedSurg, on telemetry BiPAP, weaned to nasal cannula, wean to room air lasix p.o.,albuterol nebs influenza A positive with pneumonia, weaned to room air tamiflu, Levaquin Acute on chronic heart failure unknown ejection fraction NSTEMI, [place] type II Cardiology was consulted Status post cardiac cath 03/07 Findings: Mid LAD/LCx disease with RCA INJECTION PRESS OPERATOR with good collaterals-Plan will be to continue medical management for CAD. 1. Left main: Normal. 2. LAD: Diffuse mild luminal irregularities with very distal 50% to 60% disease, then mild luminal irregularities. Gives collaterals to the right side. 3. Left circumflex: Mild luminal irregularities. 4. RCA: Mid 80% disease, then mid to distal occluded 100% ISR, most likely INJECTION PRESS OPERATOR. Most likely there are 2 layers of stents there. Left to right collaterals into RPDA. 5. LVEDP: 3 mmHg. 1. Mid 100% occluded right coronary artery stent, chronic total occlusion, with [id number] collaterals, most likely 2 layers of stents, no space for intervention here. 2. Distal left anterior descending, moderate disease, small artery. 3. Normal filling pressure. CT negative for PE Lovenox 100mg sc q 12h; aspirin ECHO Medications at discharge, Lasix 40 mg 1 p.o. twice daily, Lopressor 50 mg 1 p.o. twice daily losartan 25 mg daily, Aldactone 25 mg twice daily, aspirin 81 mg daily Hypotensive, Lopressor decreased to 25 mg twice daily uncontrolled diabetes with hyperglycemia hgb a1c = 10 semglee increased to 20 to 25 units daily fsbs monitoring with ssi coverage Back pain: As needed analgesics VTE prophylaxis Discharge Plan: Home Plan to discharge in: Greater than 2 days - Advance Directives Does patient have a Living Will: No Does patient have a Durable POA for Healthcare: No -Full code ) Discharge Plan: Home Critical Care: No Time Spent Managing PTS Care (In Minutes): 35 <Flora Harrison - Last Filed: 03/10/24 13:13> Patient was seen and examined. Events of the last 24 hours have been noted. Spoke with with ANITA regarding patient's clinical picture after evaluating and examining the patient independently. I performed a substantial part of the MDM during this patient's care today. I personally made or approved the documented management plan and acknowledge its risk of complications. I agree with the findings and documentation provided in the ANITA's notes. <Alfredo Parker - Last Filed: 03/11/24 15:30>
[2024-03-10] MEDS: INSULIN GLARGINE 100 UNIT/ML SQ SCH (17:22)
[2024-03-10] MEDS: METOPROLOL TAR 50 MG TAB PO SCH (17:23)
[2024-03-10] MEDS: MORPHINE 2 MG/ML SYR IV PRN (21:39)
[2024-03-10 22:36] VITALS: O2SAT 96
[2024-03-11] MEDS ORDERED: MORPHINE 2 MG/ML SYR ONE (01:49)
[2024-03-11] MEDS: MORPHINE 2 MG/ML SYR IV PRN (01:55)
--- NOTE | 2024-03-11 03:44 | RAD REPORT ---
EXAM: US Duplex Right Upper Extremity Veins CLINICAL HISTORY: The patient is 59 years old and is Male; rule out clot TECHNIQUE: Real-time duplex ultrasound scan of the right upper extremity veins integrating B-mode t wo-dimensional vascular structure, Doppler spectral analysis, color flow Doppler imaging and Impression. COMPARISON: No relevant prior studies available. FINDINGS: Deep veins: Unremarkable. No DVT in the internal jugular, subclavian, axillary, or brachial vei ns. The veins demonstrate normal color flow, are normally compressible, with normal phasic flow and/or augmentation response. Superficial veins: No thrombus in the visualized basilic vein. The cephalic vein was not visualiz ed. Soft tissues: No acute findings. IMPRESSION: No evidence of DVT in the right upper extremity veins. Electronically signed by: Dani Alvarez MD 03/11/2024 03:40 AM [facility] 8 Due to temporary technical issues with the PACS/UniServity scribe reporting system, reports are being signed by the in-house radiologist without review as a courtesy to ensure prompt reporting the interpreting radiologist is fully responsible for the content of the report. Transcribed Date/Time: 03/11/2024 3:44 AM
[2024-03-11 04:52] LABS: Absolute Lymphocytes (CBC) 1.3 K/uL (0.7-4.9); Absolute Monocytes 0.4 K/uL (0.1-1.3); Absolute Neutrophil 2.1 K/uL (1.8-8.0); Basophils % 0.2 % (0-1.3); Eosinophils % 1.2 % (0-4.4); Hematocrit 38.8 % (39.6-49.0); Hemoglobin 13.4 g/dL (13.6-17.9); Lymphocytes % 34.5 % (15.3-44.8); MCH 29.8 pg (27.0-35.0); MCHC 34.6 g/dL (32.0-36.0); MCV 86.3 fL (80-100); MPV 7.9 fL (7.6-11.3); Monocytes % 10.7 % (3.3-12.3); Neutrophils % 53.4 % (41.7-73.7); Nucleated Red Blood Cells % 0.4 % (0-0); Platelets 136 thou/uL (152-406); RBC Red Blood Cell Count 4.49 M/uL (4.33-5.43); Red Cell Distribution Width 13.5 % (12.1-15.2)
[2024-03-11 04:57] LABS: Anion Gap 6.3 mEq/L (5.0-15.0); Magnesium 1.9 mg/dL (1.6-2.4); Potassium 4.3 mEq/L (3.5-5.1)
[2024-03-11] MEDS: MAGNESIUM HYDROXIDE 8% 30 ML PO PRN (09:36)
--- NOTE | 2024-03-11 11:31 | P.PN ---
Subjective Date of Service: 03/11/24 Primary Care Provider: none Chief Complaint: dyspnea Subjective: No new changes, No C/O voiced, Tolerating diet, Ambulating, Improving Review of Systems 10-point ROS is otherwise unremarkable Physical Examination - Vital Signs Temperature: 97.9 F Blood Pressure: 134/78 Pulse: 83 Respirations: 14 Pulse Ox (%): 97 - Physical Exam General: Alert, In no apparent distress HEENT: Atraumatic, PERRLA, EOMI Neck: Supple, JVD not distended Respiratory: Clear to auscultation bilaterally, Normal air movement Cardiovascular: Regular rate/rhythm, Normal S1 S2 Gastrointestinal: Normal bowel sounds, No tenderness Musculoskeletal: No tenderness Integumentary: No rashes Neurological: Normal speech, Normal tone, Normal affect Lymphatics: No axilla or inguinal lymphadenopathy - Studies Medications List Reviewed: Yes Assessment And Plan - Current Problems (Diagnosis) (1) SOB (shortness of breath) Current Visit: Yes Status: Acute Plan: switch lasix to 40 mg po daily (Patient LVEDP is 3 mmHg) lopressor 25 mg po BID Losartan 25 mg daily continue Aldactone 25 mg BID (2) NSTEMI (non-ST elevated myocardial infarction) Current Visit: Yes Status: Acute Plan: most likely type 2 [place] from heart failure and flu positive, Coronary angiogram done and shows mild LAD/LCX disease with RCA TURF SALES PERSON with good collaterals continue ASA 81 mg daily patient got some pain at radial access site, start Doxycycline for 7 days
--- NOTE | 2024-03-11 12:38 | P.DS ---
Admission Date: 03/03/24 Discharge Date: 03/11/24 Primary Care Provider: none Disposition: ROUTINE DISCHARGE Discharge Condition: FAIR Reason for Admission: dyspnea Brief History of Present Illness: Diagnosis acute hypoxic respiratory failure secondary influenza /COPD exacerbation/influenza A pneumonia Acute on chronic heart failure unknown ejection fraction NSTEMI, [place] type II uncontrolled diabetes with hyperglycemia Medication noncompliant HPI 03/03/24 Mr. Farrell is a 59-year-old male who states his only medical problem is hypertension. He does admit to an [place] with 1 stent many years ago. His sister states he has been short of breath for 3 days and has tried to quit smoking for about a week. He arrives to the emergency department with acute hypoxic respiratory failure secondary to uncompensated CHF, suspected COPD, influenza A positive with pneumonia, uncontrolled diabetes with blood sugar over 300. Vital signs 176/104 heart rate 121 respiratory rate 29 SpO2 99% on a nonrebreather. He lives with and takes care of his significant other who is homebound. He states he has Nitrostat for home use but did not think of using it and is allergic to penicillin and yellow jackets for which he has an EpiPen. At bedside he is disheveled, with tachycardia and wheezing, chest x-ray shows pulmonary edema. CT PE protocol shows probable right middle lobe pneumonia with out PE. In the emergency department he received 0.4 mg nitro x 2 and 40 mg of Lasix IV Mr. Farrell will be admitted to the ICU for further management and evaluation Hospital Course: Matt Farrell is a pleasant 59 year old male with a past medical history significant for hypertension who was admitted to the [facility] on 03/03/24 for shortness of breath for three days. Matt presented to the ED with shortness of breath for 3 days. Clinically, he was tachycardic and hypertensive with a respiratory rate of 29 requiring nonrebreather and received nitroglycerin x 2 with Lasix in the ED, he was admitted to the ICU. Troponin elevated requiring a cardiology consult. Heart cath performed on 02/25 showing RCA WEB RETAILER with good collaterals and mild LAD/LCX. ECHO reporting HFrEF. Matt was downgraded to the floor on 03/08 tolerating RA with 2 LNC at times. He has had a lengthy hospital course while weaning oxygen supplementation. CT PE protocol negative for PE but showing right middle lobe PNA and tested positive for Influenza A. He has tolerated a full course of tamiflu and levaquin. Matt reports having two oxygen compressors at home that are in working condition. He feels short of breath with ambulation and will be able to use the oxygen at home when needed. Matt reports not taking medications for three months, he is noncompliant and is a high risk of re-admission. On 03/11/24 , Matt was seen on morning rounds and deemed medically stable for discharge. Matt was discharged with instructions to schedule follow-up appointments with PCP and cardiology. Physical Exam General: Alert and oriented x3, In no apparent distress HEENT: Atraumatic, PERRLA, EOMI Neck: Supple, JVD not distended Respiratory: Clear to auscultation bilaterally, Normal air movement, on RA Cardiovascular: RRR, Normal S1 S2 Gastrointestinal: Normal bowel sounds, Soft on palpation, ND/NT Musculoskeletal: No tenderness Integumentary: No rashes Neurological: Normal speech, Normal tone, Normal affect Lymphatics: No axilla or inguinal lymphadenopathy Vital Signs/Physical Exam: Temp Pulse Resp BP Pulse Ox 97.9 F 83 14 134/78 97 03/11/24 11:31 03/11/24 11:31 03/11/24 11:31 03/11/24 11:31 03/11/24 11:31 Laboratory Data at Discharge: WBC 3.90 thou/uL (4.3-10.9) L 03/11/24 04:31 Hgb 13.4 g/dL (13.6-17.9) L 03/11/24 04:31 Hct 38.8 % (39.6-49.0) L 03/11/24 04:31 Plt Count 136 thou/uL (152-406) L 03/11/24 04:31 PT 12.6 SECONDS (9.4-12.5) H 03/03/24 13:00 INR 1.13 03/03/24 13:00 Sodium 134 mEq/L (136-145) L 03/11/24 04:31 Potassium 4.3 mEq/L (3.5-5.1) 03/11/24 04:31 BUN 21 mg/dL (7-18) H 03/11/24 04:31 Creatinine 0.64 mg/dL (0.70-1.30) L 03/11/24 04:31 Glucose 171 mg/dL (74-106) H 03/11/24 04:31 Phosphorus 3.6 mg/dL (2.5-4.9) 03/08/24 05:38 Magnesium 1.9 mg/dL (1.6-2.4) 03/11/24 04:31 Total Bilirubin 0.6 mg/dL (0.2-1.0) 03/07/24 05:00 AST 43 U/L (15-37) H 03/07/24 05:00 ALT 34 U/L (16-61) 03/07/24 05:00 Alkaline Phosphatase 63 U/L (45-117) 03/07/24 05:00 Triglycerides 139 mg/dL (<150) 03/04/24 00:15 Cholesterol 183 mg/dL (<200) 03/04/24 00:15 HDL Cholesterol 61 mg/dL (40-60) H 03/04/24 00:15 Cholesterol/HDL Ratio 3.00 03/04/24 00:15 Home Medications: Albuterol Neb [Proventil 0.083% Neb Soln] 2.5 mg NEB [id number] 30 Days #30 amp 03/11/24 Aspirin [Aspirin EC 81 MG] 81 mg PO DAILY 30 Days #30 tab 03/11/24 Dapagliflozin Propanediol [Farxiga] 10 mg PO DAILY 30 Days #30 tab 03/11/24 Furosemide [Lasix*] 40 mg PO BIDL 30 Days #60 tab 03/11/24 Guaifenesin/Dextromethorphan [Tussin Dm 10-100 mg/5 ml Liq] 10 ml PO BID PRN 5 Days #50 ml 03/11/24 Losartan Potassium [Cozaar*] 25 mg PO DAILY 30 Days #15 tab 03/11/24 Metformin HCl 500 mg PO BID 30 Days #60 tab 03/11/24 Metoprolol Succinate [Toprol Xl*] 50 mg PO DAILY 30 Days #30 tab 03/11/24 Nebulizer and Compressor [Compressor Nebulizer System] 1 each MC DAILY #1 ea 03/11/24 Simvastatin 20 mg PO DAILY 30 Days #30 tab 03/11/24 Spironolactone 25 mg PO DAILY 30 Days #30 tab 03/11/24 New Medications: Albuterol Neb [Proventil 0.083% Neb Soln] 2.5 mg NEB [id number] 30 Days #30 amp Aspirin [Aspirin EC 81 MG] 81 mg PO DAILY 30 Days #30 tab Nebulizer and Compressor [Compressor Nebulizer System] 1 each MC DAILY #1 ea Losartan Potassium [Cozaar*] 25 mg PO DAILY 30 Days #15 tab Dapagliflozin Propanediol [Farxiga] 10 mg PO DAILY 30 Days #30 tab Furosemide [Lasix*] 40 mg PO BIDL 30 Days #60 tab Metformin HCl 500 mg PO BID 30 Days #60 tab Simvastatin 20 mg PO DAILY 30 Days #30 tab Spironolactone 25 mg PO DAILY 30 Days #30 tab Metoprolol Succinate [Toprol Xl*] 50 mg PO DAILY 30 Days #30 tab Guaifenesin/Dextromethorphan [Tussin Dm 10-100 mg/5 ml Liq] 10 ml PO BID PRN 5 Days #50 ml PRN Reason: Cough Physician Discharge Instructions: 1. Please call and schedule a follow-up appointment with your PCP in 3-5 days - Please follow-up with your PCP for medication refills/adjustments -A1c 10, starting metformin and Farxiga 2. Please call and schedule a follow-up appointment with Dr. Zimmerman in 2 weeks 3. Continue heart healthy diet 4. No activity restrictions 5. Return to the ED if symptoms worsen New medications Albuterol solution, as needed Lasix 40 mg twice daily Robitussin twice daily as needed for cough Losartan 25 mg daily Metoprolol XL 50 mg daily Spironolactone 25 mg daily Metformin 500 mg twice daily Farxiga 10 mg daily Aspirin 81 mg daily Simvastatin 20 mg daily Nebulizer machine Matt reports having two oxygen compressors at home that are in working condition. He feels short of breath with ambulation and will be able to use the oxygen at home when needed. Followup: Primo Zimmerman MD [ACTIVE - CAN ADMIT] - 1-2 Weeks NONE,NONE [Primary Care Provider] -
[2024-03-11 12:59] VITALS: BP 122/72; TEMP 97.3
--- NOTE | 2024-03-11 15:39 | P.PN ---
Subjective Date of Service: 03/05/24 Patient's respiratory status has improved. Planning on cardiac catheterization in a.m. if clinically doing better. Currently on 2 L of oxygen. Weaning down. Continue with nebs, steroids, antibiotics. Appreciate Pulmonary input and Cardiology assistance. Review of Systems 10-point ROS is otherwise unremarkable Physical Examination - Vital Signs Temperature: 97.3 F Blood Pressure: 122/72 Pulse: 92 Respirations: 16 Pulse Ox (%): 90 - Physical Exam General: Alert, In no apparent distress, Oriented x3 HEENT: Atraumatic, PERRLA, EOMI Neck: Supple, JVD not distended Respiratory: Expiratory wheezes Cardiovascular: Regular rate/rhythm, Normal S1 S2, Systolic murmur Gastrointestinal: Normal bowel sounds, Soft and benign, Non-distended, No tenderness Musculoskeletal: No clubbing, No swelling, No tenderness Integumentary: No rashes Neurological: Normal speech, Normal tone, Sensation intact, Cranial nerves 3-12 intact, Normal affect Lymphatics: No axilla or inguinal lymphadenopathy - Studies Medications List Reviewed: Yes Assessment & Plan - Problems (Diagnosis) (1) Type 2 myocardial infarction Status: Acute (2) Shortness of breath Status: Acute (3) Acute respiratory failure Status: Acute (4) Influenzal pneumonia Status: Acute (5) Hypoxic respiratory failure Status: Acute (6) Generalized weakness Status: Acute - Plan 1. Continue with IV antibiotics 2. Awaiting sputum and blood culture 3. Repeat chest x-ray 4. NPO with cardiac catheterization in a.m. 5. Respiratory isolation 6. Continue with nebs as needed ; change to oral steroids 7. O2 per protocol 8. Continue with gentle hydration 9. Repeat labs including CBC and renal function in a.m. Discharge Plan: Home Plan to discharge in: Greater than 2 days - Advance Directives Does patient have a Living Will: No Does patient have a Durable POA for Healthcare: No - Code Status/Comfort Care Code Status Assessed: Yes Code Status: Full Code Critical Care: No Time Spent Managing PTS Care (In Minutes): 35
--- NOTE | 2024-03-11 15:43 | P.PN ---
Date of Service: 03/06/24 Subjective Patient's respiratory status has improved. Planning on cardiac catheterization in a.m. if clinically doing better. Currently on 2 L of oxygen. Weaning down. Continue with nebs, steroids, antibiotics. Appreciate Pulmonary input and Cardiology assistance. Review of Systems 10-point ROS is otherwise unremarkable Physical Examination - Vital Signs reviewed - Physical Exam General: Alert, In no apparent distress, Oriented x3 Respiratory: Expiratory wheezes Cardiovascular: Regular rate/rhythm, Normal S1 S2, Systolic murmur Gastrointestinal: Normal bowel sounds, Soft and benign, Non-distended, No tenderness Musculoskeletal: No clubbing, No swelling, No tenderness Integumentary: No rashes Neurological: no focal deficits Assessment & Plan - Problems (Diagnosis) (1) Type 2 myocardial infarction Status: Acute (2) Shortness of breath Status: Acute (3) Acute respiratory failure Status: Acute (4) Influenzal pneumonia Status: Acute (5) Hypoxic respiratory failure Status: Acute (6) Generalized weakness Status: Acute - Plan 1. Continue with IV antibiotics 2. Awaiting sputum and blood culture 3. Repeat chest x-ray 4. NPO with cardiac catheterization in a.m. 5. Respiratory isolation 6. Continue with nebs as needed ; change to oral steroids 7. O2 per protocol 8. Continue with gentle hydration 9. Repeat labs including CBC and renal function in a.m. Discharge Plan: Home Plan to discharge in: Greater than 2 days - Advance Directives Does patient have a Living Will: No Does patient have a Durable POA for Healthcare: No - Code Status/Comfort Care Code Status Assessed: Yes Code Status: Full Code Critical Care: No Time Spent Managing PTS Care (In Minutes): 35
--- NOTE | 2024-03-11 15:46 | P.PN ---
Date of Service: 03/07/24 Subjective status post cardiac catheterization. No intervention necessary at this time. Clinically patient doing well. Downgraded to general medical floor. Review of Systems 10-point ROS is otherwise unremarkable Physical Examination - Vital Signs reviewed - Physical Exam General: Alert, In no apparent distress, Oriented x3 Respiratory: Expiratory wheezes Cardiovascular: Regular rate/rhythm, Normal S1 S2, Systolic murmur Gastrointestinal: Normal bowel sounds, Soft and benign, Non-distended, No tenderness Musculoskeletal: No clubbing, No swelling, No tenderness Integumentary: No rashes Neurological: no focal deficits Assessment & Plan - Problems (Diagnosis) (1) Type 2 myocardial infarction Status: Acute (2) Shortness of breath Status: Acute (3) Acute respiratory failure Status: Acute (4) Influenzal pneumonia Status: Acute (5) Hypoxic respiratory failure Status: Acute (6) Generalized weakness Status: Acute - Plan Continue with current plan of care at this time: 1. Continue with IV antibiotics 2. Awaiting sputum and blood culture 3. Repeat chest x-ray 4. Out of bed and ambulate 5. Respiratory isolation 6. Continue with nebs as needed ; change to oral steroids 7. O2 per protocol; weaned down to room air 8. advanced diet as tolerated and Hep-Lock IV. Discharge Plan: Home Plan to discharge in: Greater than 2 days - Advance Directives Does patient have a Living Will: No Does patient have a Durable POA for Healthcare: No - Code Status/Comfort Care Code Status Assessed: Yes Code Status: Full Code Critical Care: No Time Spent Managing PTS Care (In Minutes): 35
--- NOTE | 2024-03-11 15:48 | P.PN ---
Date of Service: 03/08/24 Subjective Patient is currently doing well on general medical floor. Respiratory status has improved. On room air. Ambulating out of bed. Anticipating discharge over the next 48-72 hours. Review of Systems 10-point ROS is otherwise unremarkable Physical Examination - Vital Signs reviewed - Physical Exam General: Alert, In no apparent distress, Oriented x3 Respiratory: Expiratory wheezes Cardiovascular: Regular rate/rhythm, Normal S1 S2, Systolic murmur Gastrointestinal: Normal bowel sounds, Soft and benign, Non-distended, No tenderness Musculoskeletal: No clubbing, No swelling, No tenderness Integumentary: No rashes Neurological: no focal deficits Assessment & Plan - Problems (Diagnosis) (1) Type 2 myocardial infarction Status: Acute (2) Shortness of breath Status: Acute (3) Acute respiratory failure Status: Acute (4) Influenzal pneumonia Status: Acute (5) Hypoxic respiratory failure Status: Acute (6) Generalized weakness Status: Acute - Plan Continue with plan of care as mentioned below: 1. Continue with oral antibiotics 2. Cx negative 3. Chest x-ray is clear 4. Out of bed and ambulate 5. Respiratory isolation 6. Continue with nebs as needed ; change to oral steroids 7. O2 per protocol; weaned down to room air 8. advanced diet as tolerated and Hep-Lock IV. Discharge Plan: Home Plan to discharge in: Greater than 2 days - Advance Directives Does patient have a Living Will: No Does patient have a Durable POA for Healthcare: No - Code Status/Comfort Care Code Status Assessed: Yes Code Status: Full Code Critical Care: No Time Spent Managing PTS Care (In Minutes): 25
--- NOTE | 2024-03-15 11:14 | ECHO ---
HEIGHT: 6 ft 0 in WEIGHT: 203 lb 0 oz DATE OF STUDY: 03/05/[address]: Sharon Moore BUS GIRL-BC 2-DIMENSIONAL: YES M.MODE: YES DOPPLER: YES COLOR FLOW: YES TDS: NO PORTABLE: YES DEFINITY: NO BUBBLE STUDY: NO DIAGNOSIS: CONGESTIVE HEART FAILURE WITH EXACERBATION CARDIAC HISTORY: CATHERIZATION: SURGERY: PROSTHETIC VALVE: PACEMAKER: MEASUREMENTS (cm) DIASTOLIC (NORMALS) SYSTOLIC (NORMALS) IVSd 1.6 (0.6-1.2) LA Diam 3.7 (1.9-4.0) LVEF 25-30% LVIDd 5.1 (3.5-5.7) LVIDs 4.4 (2.0-3.5) %FS 14% LVPWd 1.6 (0.6-1.2) Ao Diam 3.4 (2.0-3.7) 2 DIMENSIONAL ASSESSMENT: RIGHT ATRIUM: NORMAL LEFT ATRIUM: NORMAL RIGHT VENTRICLE: NORMAL LEFT VENTRICLE: NORMAL TRICUSPID VALVE: TRACE TRICUSPID REGURGITATION MITRAL VALVE: NORMAL PULMONIC VALVE: NORMAL AORTIC VALVE: NORMAL PERICARDIAL EFFUSION: NONE AORTIC ROOT: NORMAL LEFT VENTRICULAR WALL MOTION: SEVERE GLOBAL HYPOKINESIS. DOPPLER/COLOR FLOW: DIASTOLIC DYSFUNCTION. COMMENTS: 1. SEVERELY REDUCED LEFT VENTRICULAR SYSTOLIC FUNCTION. LEFT VENTRICULAR EJECTION FRACTION 25-30%. SEVERE GLOBAL HYPOKINESIS. 2. DIASTOLIC DYSFUNCTION. 3. ELEVATED FILLING PRESSURE. RIGHT ATRIAL PRESSURE >20 mmHg. TECHNOLOGIST: MIGUEL ANGEL MALONE
--- NOTE | 2024-03-22 13:50 | EKG ---
Test Date: 2024-03-07 Test Time: 09:42:03 New Home Sales Consultant: NAEL MEASUREMENT RESULTS: Intervals: Rate: 132 PA: QRSD: 118 QT: 338 QTc: 500 [place]: P: PA: QRS: 36 T: 192 INTERPRETIVE STATEMENTS: Atrial fibrillation with rapid ventricular response Left ventricular hypertrophy with QRS widening ST & T wave abnormality, consider inferolateral ischemia or digitalis effect Abnormal ECG Compared to ECG 03/03/2024 23:06:46 ST (T wave) deviation now present Possible ischemia now present Sinus tachycardia no longer present Atrial abnormality no longer present Early repolarization no longer present Myocardial infarct finding no longer present Electronically Signed On 03-22-24 13:39:33 EMBEDDED FIRMWARE DEVELOPER by Checo Buenrostro
--- NOTE | 2024-03-22 13:50 | EKG ---
Test Date: 2024-03-07 Test Time: 09:44:39 Membership Manager: NAEL MEASUREMENT RESULTS: Intervals: Rate: 134 [place]: QRSD: 118 QT: 336 QTc: 501 [place]: P: [place]: QRS: 35 T: 202 INTERPRETIVE STATEMENTS: Atrial fibrillation with rapid ventricular response Left ventricular hypertrophy with QRS widening ST & T wave abnormality, consider inferolateral ischemia or digitalis effect Abnormal ECG Compared to ECG 03/07/2024 09:42:03 No significant changes Electronically Signed On 03-22-24 13:39:31 FINANCIAL SUPERVISOR by Checo Buenrostro
--- NOTE | 2024-03-22 13:51 | EKG ---
Test Date: 2024-03-03 Test Time: 23:06:46 Pumping Station Engineer: LB MEASUREMENT RESULTS: Intervals: Rate: 120 [place]: 186 QRSD: 106 QT: 312 QTc: 440 [place]: P: 63 [place]: 186 QRS: 36 T: 142 INTERPRETIVE STATEMENTS: Sinus tachycardia Right atrial enlargement Left ventricular hypertrophy with repolarization abnormality Anteroseptal infarct, age undetermined Abnormal ECG Compared to ECG 03/03/2024 12:53:11 Left ventricular hypertrophy now present Early repolarization now present ST (T wave) deviation no longer present Possible ischemia no longer present Myocardial infarct finding still present Electronically Signed On 03-22-24 13:39:47 VETERINARY TOXICOLOGIST by Checo Buenrostro
== END 2024-03-11 13:36 | disposition home or self-care (01) | DRG 280 ==
LOC: ER 12:37 → ERHOLD 15:10 → 3RD-ICU 21:23 → 2ND 03-08 14:36
PROVIDERS: ADMIT Internal Medicine; ATTEND Internal Medicine
PROC: 5A09357 Assistance with Respiratory Ventilation, Less than 24 Consecutive Hours, Continuous Positive Airway Pressure (ICD-10-PCS; principal; 2024-03-03)
PROC: 4A033R1 Measurement of Arterial Saturation, Peripheral, Percutaneous Approach (ICD-10-PCS; 2024-03-03)
PROC: 4A023N7 Measurement of Cardiac Sampling and Pressure, Left Heart, Percutaneous Approach (ICD-10-PCS; 2024-03-07)
PROC: B2111ZZ Fluoroscopy of Multiple Coronary Arteries using Low Osmolar Contrast (ICD-10-PCS; 2024-03-07)
DX: I11.0 Hypertensive heart disease with heart failure (principal); I50.43 Acute on chronic combined systolic (congestive) and diastolic (congestive) heart failure; I21.A1 Myocardial infarction type 2; J10.00 Influenza due to other identified influenza virus with unspecified type of pneumonia; J96.01 Acute respiratory failure with hypoxia; J44.0 Chronic obstructive pulmonary disease with (acute) lower respiratory infection; J44.1 Chronic obstructive pulmonary disease with (acute) exacerbation; E11.65 Type 2 diabetes mellitus with hyperglycemia; F17.210 Nicotine dependence, cigarettes, uncomplicated; I25.2 Old myocardial infarction; Z91.148 Patient's other noncompliance with medication regimen for other reason; Z11.52 Encounter for screening for COVID-19
CPT/HCPCS: 36415; 71045; 71275; 76937; 80048; 80053; 80061; 80076; 82805; 82947; 83036; 83605; 83735; 83880; 84100; 84484; 85025; 85379; 85610; 87804; 87811; 93005; 93306; 93458; 93971; 94640; 94660; 96374; 97116; 97161; 99152; 99153; 99285; C1893; J0282; J0360; J0461; J1644; J1650; J1940; J2003; J2250; J2270; J2405; J2919; J3010; J3475; J7040; J7613; J7644; P9047; Q9966; Q9967